=== PATIENT | female | born 1970 | race Caucasian/White ===

== ENCOUNTER 2017-01-23 08:05 | Observation (INO) ==
[2017-01-23] MEDS ORDERED: 0.9 % Sodium Chloride 1,000 ML IVC ONE (08:11)
[2017-01-23 08:32] LABS: BUN/Creatinine Ratio 6 (6-26); Blood Urea Nitrogen 4 mg/dL (7-20); Carbon Dioxide 24 mEq/L (19-29); Chloride 98 mEq/L (98-109); Glucose 160 mg/dL (70-99); Osmolality,Calculated 282 (280-300); Potassium 2.7 mEq/L (3.5-4.5); Sodium 136 mEq/L (136-145); eGFR For African Americans > 60 (> 60); eGFR For Non-African Americans > 60 (> 60)
[2017-01-23 08:35] LABS: Prothrombin Time 10.8 Seconds (9.4-12.1)
[2017-01-23 08:38] LABS: Activated Partial Thrombo Time 24.9 Seconds (26.0-36.0)
--- NOTE | 2017-01-23 08:42 | Emergency Department Note ---
Disposition Clinical Impression: Altered mental status, History of CVA (cerebrovascular accident) Disposition: Admitted As Inpatient Condition: Good Time of Disposition: 11:16 General Adult HPI - General Chief complaint: ED Neuro Symptoms/Deficit Stated complaint: Neuro Time Seen by Provider: 01/23/17 08:11 Source: patient Limitations: no limitations Nursing Notes Reviewed: Yes Vital Signs Reviewed: Yes - History of Present Illness HPI Narrative: 46-year-old female history of previous CVA 3 weeks ago complains of acute onset weakness and altered mental status for the last known well at around 0730 hrs. Patient's states patient was fine last night. Paramedics state patient seemed to be weak on the left side in upper and lower extremities and patient was unresponsive with her eyes scanning right and left paramedics state patient started to regain awareness and function after being placed on O2. Patient was alert and oriented 3 foot weak globally here in the emergency department. Pain Scale: 5 - Related Data Home Medications Medication Instructions Recorded Confirmed RisperiDONE [RisperDAL] 2 mg PO HS 12/22/14 01/23/17 Citalopram Hydrobromide [Celexa] 40 mg PO DAILY 12/08/16 01/23/17 DiphenhydraMINE [Benadryl] 50 mg PO HS 12/08/16 01/23/17 HydrOXYzine Pamoate [Vistaril] 50 - 100 mg PO BID PRN 12/08/16 01/23/17 Tizanidine HCl 4 mg PO Q8H PRN 12/08/16 01/23/17 Trazodone HCl 150 - 300 mg PO HS PRN 12/08/16 01/23/17 lamoTRIgine [Lamictal Xr] 200 mg PO DAILY 12/08/16 01/23/17 Gabapentin [Neurontin] 300 mg PO TID 12/19/16 01/23/17 Previous Rx's Medication Instructions Recorded Metoprolol XL (24 HR) Succ [Toprol 25 mg PO DAILY #30 tab.er.24h 12/09/16 Xl] Aspirin 81 mg PO DAILY #30 tab.chew 12/21/16 Clopidogrel [Plavix] 75 mg PO DAILY #30 tablet 12/21/16 Cyanocobalamin (B-12) [Vitamin B12] 1,000 mcg PO DAILY #30 tablet 12/21/16 Folic Acid 1 mg PO DAILY #30 tablet 12/21/16 Simvastatin [Zocor] 20 mg PO QPM #30 tablet 12/21/16 LevETIRAcetam [Keppra] 500 mg PO BID #60 tablet 01/24/17 Allergies Allergy/AdvReac Type Severity Reaction Status Date / Time No Known Allergies Allergy Verified 12/22/14 18:27 All systems ED: reviewed and negative except as stated. Review of Systems: As Per HPI Constitutional: Denies: fever ENT ED: Denies: congestion Cardiovascular: Denies: chest pain, palpitations Respiratory: Denies: cough, dyspnea Gastrointestinal: Denies: abdominal pain, nausea, vomiting, diarrhea Past Medical History - Past Medical History Attestation: Yes The following information was validated with the patient. 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: Reports: no MOTOR BUILDER WINDER history - Social History Smoking Status: Current every day smoker Smokeless Tobacco Status: No Alcohol use: Reports: heavy Drug use: Reports: marijuana Physical Exam Vital Signs Temperature 98.9 F 01/23/17 08:06 Pulse Rate 120 01/23/17 08:06 Respiratory Rate 18 01/23/17 08:06 Blood Pressure 147/114 01/23/17 08:06 O2 Sat by Pulse Oximetry 97 01/23/17 08:06 Temperature 98.9 F 01/23/17 08:06 Pulse Rate 120 01/23/17 08:06 Respiratory Rate 18 01/23/17 08:06 Blood Pressure 147/114 01/23/17 08:06 O2 Sat by Pulse Oximetry 97 01/23/17 08:06 Oxygen Delivery Oxygen Delivery Room Air 46-year-old female who is alert and oriented 3 but appears very fatigued and currently too weak to follow commands movements with her extremities. When asked to follow my finger patient was unable to do so but patient can look into my direction and asked to. - General Limitations: no limitations General appearance: alert, in no apparent distress - Head Head exam: atraumatic, normocephalic, normal inspection - Eye Eye exam: Present: normal appearance. Absent: PERRL, EOMI - ENT ENT exam: mucous membranes dry, other (Dry blood on lips) - Neck Neck exam: Present: normal inspection, full ROM, trachea midline - Chest Chest inspection: Present: normal inspection, symmetric chest wall rise. Absent : rash - Respiratory Respiratory exam: Present: normal lung sounds bilaterally. Absent: respiratory distress, wheezes - Cardiovascular Cardiovascular exam: Present: normal rhythm, tachycardia - Neurological Exam Neurological exam: Present: alert, oriented X3. Absent: reflexes normal (No reflexes response at L4 bilaterally lower extremities) - Skin Skin exam: Present: warm, dry, intact, normal color Course - Consultations Consultation #1: [facility] neurology Dr. Reilly was consulted and he relayed patient is not a candidate for TPA at this time given patient had CVA 3 weeks ago. Given her symptoms of global weakness and 100% occlusion of the right ICA he thinks patient most likely had a syncopal episode/possible seizure. He still recommends a full workup with MRI and MRA of the brain. He also states that they be happy to take the patient if we need to transfer. Time: 08:35 Vital Signs Temperature 98.9 F 01/23/17 08:06 Pulse Rate 120 01/23/17 08:06 Respiratory Rate 18 01/23/17 08:06 Blood Pressure 147/114 01/23/17 08:06 O2 Sat by Pulse Oximetry 97 01/23/17 08:06 Temperature 97.9 F 01/24/17 15:20 Pulse Rate 86 01/24/17 15:20 Respiratory Rate 16 01/24/17 15:20 Blood Pressure 132/91 01/24/17 15:20 O2 Sat by Pulse Oximetry 93 01/24/17 15:20 Oxygen Delivery Oxygen Delivery Room Air Medical Decision Making - [facility] Narrative Medical decision making narrative: Patient with prior history 3 weeks for CVA, patient presents alert and oriented by the time they arrived to the ED but extremely weak globally. CT of the head showed no acute cranial abnormalities are new. Discussion with [facility] neurology Dr. Reilly was that patient was not a candidate for TPA requires full workup with MRI/MRA and EEG. Discussed with Dr. Powers of neurology here who states he was seated patient but requests patient be started on 1 g of Keppra to control possible seizures since patient looks like she bit her lip and had incontinence prior to arrival. Patient is accepted by Dr. Quintana the hospitalist. On reexamination patient is doing a lot better and fully with able to sit up under her own power and has bilateral upper extremity strength which is currently 5/5 versus 2/5 when she first arrived. Patient still has bilateral weakness in lower extremities. - Medical Records Medical records reviewed: Yes I reviewed the patient's medical records. Review patient's previous imaging which showed 100% right ICA occlusion and right parietal lobe infarct - Lab Data Lab results reviewed: Yes I reviewed the patient's lab results. Lab results narrative: Short CBC 01/23/17 Range/Units 09:07 WBC 12.0 H (4.3-11.1) K/mcL Hgb 13.1 (11.5-15.4) g/dL Hct 38.4 (35.3-44.9) % Plt Count 273 (140-400) K/mcL Neutrophils # 8.9 (1.6-8.9) K/mcL BMP 01/23/17 Range/Units 08:14 Sodium 136 (136-145) mEq/L Potassium 2.7 L (3.5-4.5) mEq/L Chloride 98 (98-109) mEq/L Carbon Dioxide 24 (19-29) mEq/L BUN 4 L (7-20) mg/dL Creatinine 0.67 (0.57-1.11) mg/dL Glucose 160 H (70-99) mg/dL Calcium 10.0 (8.6-10.8) mg/dL Cardiac Enzymes 01/23/17 Range/Units 08:14 Troponin I 0.01 (0-0.03) ng/mL Liver Function 01/23/17 Range/Units 09:07 Total Bilirubin 0.6 (0.2-1.2) mg/dL Direct Bilirubin 0.4 (0.0-0.5) mg/dL AST 14 (5-34) Units/L ALT 7 (0-55) Units/L Alkaline Phosphatase 130 H (38-126) Units/L Albumin 2.6 L (3.5-5.0) g/dL Urine 01/23/17 Range/Units 08:40 Urine Color Yellow (Yellow) Urine Clarity Hazy A (Clear) Urine pH 7.5 (5.0-8.0) pH Units Ur Specific [place] 1.014 (1.010-1.025) Urine Protein 100 H (Neg-Trace) mg/dL Urine Glucose (UA) Normal (Normal) mg/dL Result diagrams: 01/24/17 06:33 01/24/17 06:33 Lab Results 01/23/17 01/23/17 01/23/17 Range/Units 08:14 08:14 08:14 WBC (4.3-11.1) K/mcL RBC (3.82-4.97) M/mcL Hgb (11.5-15.4) g/dL Hct (35.3-44.9) % MCV (83.0-100.0) fL MCH (28.0-33.3) pg MCHC (31.6-35.5) g/dL RDW (11.5-14.5) % Plt Count (140-400) K/mcL MPV (9.4-12.4) fL Immature Gran % (0-4) % Seg Neutrophils % % Lymphocytes % % Monocytes % % Eosinophils % % Basophils % % Neutrophils # (1.6-8.9) K/mcL Lymphocytes # (0.6-4.6) K/mcL Monocytes # (0.0-1.3) K/mcL Eosinophils # (0.0-0.6) K/mcL Basophils # (0.0-0.2) K/mcL Immature Plt Fraction (1.1-6.1) % PT 10.8 (9.4-12.1) Seconds INR 1.0 APTT 24.9 L (26.0-36.0) Seconds Sodium 136 (136-145) mEq/L Potassium 2.7 L (3.5-4.5) mEq/L Chloride 98 (98-109) mEq/L Carbon Dioxide 24 (19-29) mEq/L BUN 4 L (7-20) mg/dL Creatinine 0.67 (0.57-1.11) mg/dL Est GFR ( Amer) > 60 (> 60) Est GFR (Non-Af Amer) > 60 (> 60) BUN/Creatinine Ratio 6 (6-26) Glucose 160 H (70-99) mg/dL Calculated Osmolality 282 (280-300) Calcium 10.0 (8.6-10.8) mg/dL Total Bilirubin (0.2-1.2) mg/dL Direct Bilirubin (0.0-0.5) mg/dL Indirect Bilirubin (0.0-1.2) mg/dL AST (5-34) Units/L ALT (0-55) Units/L Alkaline Phosphatase (38-126) Units/L Troponin I 0.01 (0-0.03) ng/mL Serum Total Protein (6.0-8.3) g/dL Albumin (3.5-5.0) g/dL Globulin (2.4-3.5) g/dL Albumin/Globulin Ratio (1.1-2.2) Urine Color (Yellow) Urine Clarity (Clear) Urine pH (5.0-8.0) pH Units Ur Specific [place] (1.010-1.025) Urine Protein (Neg-Trace) mg/dL Urine Glucose (UA) (Normal) mg/dL Urine Ketones (Negative) mg/dL Urine Blood (Negative) Urine Nitrite (Negative) Urine Bilirubin (Negative) Urine Urobilinogen (Normal) mg/dL Ur Leukocyte Esterase (Negative) Urine Microscopic RBC (0-3) per hpf Urine Microscopic WBC (0-3) per hpf Ur Squamous Epith Cells (None-Few) per lpf Urine Bacteria (None-Few) per hpf Hyaline Casts (None-Few) per lpf Ur Culture Indicated? (NO) 01/23/17 01/23/17 01/23/17 Range/Units 08:40 09:07 09:07 WBC 12.0 H (4.3-11.1) K/mcL RBC 4.57 (3.82-4.97) M/mcL Hgb 13.1 (11.5-15.4) g/dL Hct 38.4 (35.3-44.9) % MCV 84.0 D (83.0-100.0) fL MCH 28.7 (28.0-33.3) pg MCHC 34.1 (31.6-35.5) g/dL RDW 14.5 (11.5-14.5) % Plt Count 273 (140-400) K/mcL MPV 9.4 (9.4-12.4) fL Immature Gran % 0.7 (0-4) % Seg Neutrophils % 74.0 % Lymphocytes % 17.9 % Monocytes % 7.1 % Eosinophils % 0.0 % Basophils % 0.3 % Neutrophils # 8.9 (1.6-8.9) K/mcL Lymphocytes # 2.2 (0.6-4.6) K/mcL Monocytes # 0.9 (0.0-1.3) K/mcL Eosinophils # 0.0 (0.0-0.6) K/mcL Basophils # 0.0 (0.0-0.2) K/mcL Immature Plt Fraction 2.8 (1.1-6.1) % PT (9.4-12.1) Seconds INR APTT (26.0-36.0) Seconds Sodium (136-145) mEq/L Potassium (3.5-4.5) mEq/L Chloride (98-109) mEq/L Carbon Dioxide (19-29) mEq/L BUN (7-20) mg/dL Creatinine (0.57-1.11) mg/dL Est GFR ( Amer) (> 60) Est GFR (Non-Af Amer) (> 60) BUN/Creatinine Ratio (6-26) Glucose (70-99) mg/dL Calculated Osmolality (280-300) Calcium (8.6-10.8) mg/dL Total Bilirubin 0.6 (0.2-1.2) mg/dL Direct Bilirubin 0.4 (0.0-0.5) mg/dL Indirect Bilirubin 0.2 (0.0-1.2) mg/dL AST 14 (5-34) Units/L ALT 7 (0-55) Units/L Alkaline Phosphatase 130 H (38-126) Units/L Troponin I (0-0.03) ng/mL Serum Total Protein 5.9 L (6.0-8.3) g/dL Albumin 2.6 L (3.5-5.0) g/dL Globulin 3.3 (2.4-3.5) g/dL Albumin/Globulin Ratio 0.8 L (1.1-2.2) Urine Color Yellow (Yellow) Urine Clarity Hazy A (Clear) Urine pH 7.5 (5.0-8.0) pH Units Ur Specific [place] 1.014 (1.010-1.025) Urine Protein 100 H (Neg-Trace) mg/dL Urine Glucose (UA) Normal (Normal) mg/dL Urine Ketones Negative (Negative) mg/dL Urine Blood Large H (Negative) Urine Nitrite Negative (Negative) Urine Bilirubin Negative (Negative) Urine Urobilinogen Normal (Normal) mg/dL Ur Leukocyte Esterase Moderate H (Negative) Urine Microscopic RBC TNTC H (0-3) per hpf Urine Microscopic WBC TNTC H (0-3) per hpf Ur Squamous Epith Cells Many H (None-Few) per lpf Urine Bacteria None Seen (None-Few) per hpf Hyaline Casts None Seen (None-Few) per lpf Ur Culture Indicated? YES A (NO) - Radiology Data Radiology results reviewed: Yes I reviewed the patient's radiology results. Head CT 01/23/17 08:11 IMPRESSION: No acute intracranial abnormality. Findings were discussed with Dr. Saini on 01/23/2017 at 8:31 am. D/ / Dandre Rueda MD / Dandre Rueda MD Interpreting Provider: Dandre Rueda MD Chest X-Ray 01/23/17 08:12 IMPRESSION: 1. No active pulmonary disease. D/ / Yoel Torres MD / Yoel Torres MD Interpreting Provider: Yoel Torres MD Brain MRI 01/23/17 08:37 IMPRESSION: No acute infarct. No acute intracranial hemorrhage. No significant mass effect. Unchanged mildly increased T2 signal within the right hippocampus with mild asymmetric volume loss. Loss of flow related signal within the right internal carotid artery compatible with the known chronic right ICA occlusion. Otherwise, no evidence of high-grade stenosis or focal occlusion involving the intracranial vasculature. Mild amount of nonspecific T2 hyperintense white matter lesions. D/ / 01/23/2017 10:20:21 Tee Ash MD / labmert Interpreting Provider: Tee Ash MD Head MRA 01/23/17 08:37 IMPRESSION: No acute infarct. No acute intracranial hemorrhage. No significant mass effect. Unchanged mildly increased T2 signal within the right hippocampus with mild asymmetric volume loss. Loss of flow related signal within the right internal carotid artery compatible with the known chronic right ICA occlusion. Otherwise, no evidence of high-grade stenosis or focal occlusion involving the intracranial vasculature. Mild amount of nonspecific T2 hyperintense white matter lesions. D/ / 01/23/2017 10:20:21 Tee Ash MD / lambert Interpreting Provider: Tee Ash MD - EKG Data EKG #1 EKG attestation: Yes I reviewed and interpreted this EKG. EKG results narrative: EKG taken and December 2016 and 0810 hours shows a sinus tachycardia rate of 1 20 bpm with no acute ST elevations any leads but has ST depressions in leads V3, V4, V5 and V6, which is new when compared to previous EKG taken 12/19/2016 shows a sinus rhythm at 71 beats a minute with no ST elevations or depressions EKG does show T-wave inversion in V1 through V4 Attestation Statement - Attestation Attestation: I, Jose Saha, examined this patient and my medical decision-making was reviewed with the PLATE INSPECTOR/PA/Advanced Practice Nurse/Resident Physician. I agree with the documented findings, disposition and treatment plan as described except to the extent set forth below. 46-year-old female presents emergency Department with concerns of acute weakness and altered mental status. Patient apparently had a CVA 3 weeks ago patient had acute bilateral lower extremity weakness. Patient was incontinent of urine. She is also confused upon EMS arrival. Patient gradually became more aware. No history of seizures in the past. Patient is not taking antiepileptic medications. Stroke protocol was initiated after initial evaluation secondary to patient's recent CVA and possibility of intracranial hemorrhage. CT of the head was negative for acute mass or intracranial hemorrhage. Patient gradually improved what during her stay in the emergency department. She was admitted to the hospitalist for further care and evaluation of her acute weakness and altered mental status which is possibly secondary to seizure.
[2017-01-23 08:51] LABS: Bilirubin,Urine Negative (Negative); Blood,Urine Large (Negative); Color,Urine Yellow (Yellow); Glucose,Urine (UA) Normal (Normal); Ketones,Urine Negative (Negative); Leukocyte Esterase,Urine Moderate (Negative); Nitrite,Urine Negative (Negative); PH,Urine 7.5 pH Units (5.0-8.0); Protein,Urine 100 mg/dL (Neg-Trace); Specific Gravity,Urine 1.014 (1.010-1.025); Urobilinogen,Urine Normal (Normal)
[2017-01-23 08:56] LABS: Bacteria,Urine None Seen per hpf (None-Few); Clarity,Urine Hazy (Clear); Hyaline Casts,Urine None Seen per lpf (None-Few); RBC,Urine TNTC per hpf (0-3); Squamous Epithelial Cell,Urine Many per lpf (None-Few); WBC,Urine TNTC per hpf (0-3)
[2017-01-23 09:15] LABS: Basophils % 0.3 %; Hematocrit 38.4 % (35.3-44.9); Hemoglobin 13.1 g/dL (11.5-15.4); Immature Granulocytes % 0.7 % (0-4); Immature Platelets 2.8 % (1.1-6.1); Lymphocytes # 2.2 K/mcL (0.6-4.6); Lymphocytes % 17.9 %; Mean Corpuscular HGB Conc 34.1 g/dL (31.6-35.5); Mean Corpuscular Hemoglobin 28.7 pg (28.0-33.3); Mean Platelet Volume 9.4 fL (9.4-12.4); Monocytes # 0.9 K/mcL (0.0-1.3); Monocytes % 7.1 %; Neutrophils # 8.9 K/mcL (1.6-8.9); Platelet Count 273 K/mcL (140-400); Red Blood Count 4.57 M/mcL (3.82-4.97); Red Cell Distribution Width 14.5 % (11.5-14.5)
[2017-01-23 09:29] LABS: Albumin 2.6 g/dL (3.5-5.0); Albumin/Globulin Ratio 0.8 (1.1-2.2); Bilirubin,Direct 0.4 mg/dL (0.0-0.5); Bilirubin,Indirect 0.2 mg/dL (0.0-1.2); Bilirubin,Total 0.6 mg/dL (0.2-1.2); Globulin 3.3 g/dL (2.4-3.5); Total Protein 5.9 g/dL (6.0-8.3)
[2017-01-23] MEDS ORDERED: cefTRIAXone 1,000 MG in Water for inj. (sterile) 10 ML IVP ONE (10:23)
[2017-01-23] MEDS ORDERED: Potassium Chloride Elixir 20 MEQ/15 ML UDC PO ONE (12:07)
[2017-01-23] MEDS ORDERED: *HR* Morphine 2 MG/ML SYRINGE IVP PRN (14:55)
[2017-01-23] MEDS ORDERED: Acetaminophen 325 MG TABLET PO PRN (14:55)
[2017-01-23] MEDS ORDERED: Naloxone 0.4 MG/ML INJ IVP PRN (14:55)
[2017-01-23] MEDS ORDERED: Ondansetron 4 MG/2 ML VIAL IVP PRN (14:55)
[2017-01-23] MEDS ORDERED: *HR* HYDROcodone/Acet 5/325 mg TABLET PO PRN (14:55)
[2017-01-23] MEDS ORDERED: tiZANidine 4 MG TABLET PO PRN (15:02)
--- NOTE | 2017-01-23 15:39 | Internal Med History&Physical ---
Date of Encounter: 01/23/17 Time of Encounter: 15:35 Assessment and Plan (1) Altered mental status Current visit: Yes Status: Acute will place the pt into Tele for observation her current AMS seems to be more like due to Seizure however little concerned about TIA too will place her on desk monitor check serial troponin check frequent neuro checks cont ASA and Plavix Cont statin Reviewed her Brain MRI / MRA - no acute infarctions now Neuro consulted will get EEG in AM seizure precautions PT / OT eval Reviewed UA - no bacteria seen..No signs of UTI Qualifiers: Altered mental status type: delirium Qualified Code(s): R41.0 - Disorientation, unspecified (2) Seizure Current visit: Yes Status: Acute see above (3) TIA (transient ischemic attack) Current visit: Yes Status: Acute Qualifiers: Qualified Code(s): G45.9 - Transient cerebral ischemic attack, unspecified (4) Depression Current visit: No Status: Chronic resumed home psych meds - Lamictal and Risperidone Qualifiers: Depression Type: unspecified Qualified Code(s): F32.9 - Major depressive disorder, single episode, unspecified (5) Gastric ulcer Current visit: No Status: Chronic resumed PPI Qualifiers: Gastric ulcer chronicity: chronic Gastric ulcer complication status: unspecified whether hemorrhage or perforation present Qualified Code(s): K25.7 - Chronic gastric ulcer without hemorrhage or perforation (6) Multiple falls Current visit: No Status: Acute Physical deconditioning PT / OT eval (7) History of CVA (cerebrovascular accident) Current visit: Yes Status: Acute resumed home med ASA. Plavix and Statin (8) Bipolar 1 disorder, depressed Current visit: Yes Status: Acute following with angelica as an out pt (9) Hypokalemia due to inadequate potassium intake Current visit: Yes Status: Acute (10) Hypertensive urgency Current visit: Yes Status: Acute BP fairly controlled did not take her PO meds today,, will resume her pO meds first placed her on Hydralazine IV PRN (11) Hypokalemia Current visit: No Status: Acute cont replacing Internal Medicine - H&P: HPI Chief complaint: Seizure / unresponsiveness Admitted From: Emergency Dept Plans for Post Hospital Care: Home History of present illness: Ms. Simmons is a 46 year old female with medical history of chronic liver disease, HTN, gastric bypass, gastric ulcer, Bipolar currently on Lamictal and Risperdol and recent Rt parietal to Temporal small infractions consistent with Rt ICA 100 % occlusion was brought into ER by family stating that this morning she was found slightly unresponsive, blank face, bitten lips, making some noise , confused and disoriented. The whole episode lasted for 10-15 minutes. As per she had an episode of brief sparing spell last night which lasted for a minute or two last night. Now she is alert, awake and O x 3. Denied any CP . No acute localized neurological deficits. Past Med Surg Social Fam HX - Past Medical History Medical history: liver disease, other Psychiatric history: anxiety, bipolar, depression, other - Past Surgical History Surgical History: - Social History Smoking Status: Current every day smoker Smokeless Tobacco Status: No Alcohol use: heavy Drug use: marijuana - Family History Grandmother Family Member Ethnicity: Non- Living Status: Hx Family Cardiac Disorders: Yes (Stroke) Hx Family Neuromuscular Disorders: Yes (CVA) Father Family Member Ethnicity: Non- Living Status: Still Living Mother Family Member Ethnicity: Non- Living Status: Still Living Hx Family Cardiac Disorders: Yes (CO x 2, DVTs) Hx Family Respiratory Disorders: Yes (COPD, emphysema) Internal Medicine - H&P: Meds RisperiDONE [RisperDAL] 2 mg PO HS 12/22/14 [History] Citalopram Hydrobromide [Celexa] 40 mg PO DAILY 12/08/16 [History] DiphenhydraMINE [Benadryl] 50 mg PO HS 12/08/16 [History] HydrOXYzine Pamoate [Vistaril] 50 - 100 mg PO BID PRN 12/08/16 [History] Tizanidine HCl 4 mg PO Q8H PRN 12/08/16 [History] Trazodone HCl 150 - 300 mg PO HS PRN 12/08/16 [History] lamoTRIgine [Lamictal Xr] 200 mg PO DAILY 12/08/16 [History] Metoprolol XL (24 HR) Succ [Toprol Xl] 25 mg PO DAILY #30 tab.er.24h 12/09/16 [ Rx] Gabapentin [Neurontin] 300 mg PO TID 12/19/16 [History] Aspirin 81 mg PO DAILY #30 tab.chew 12/21/16 [Rx] Clopidogrel [Plavix] 75 mg PO DAILY #30 tablet 12/21/16 [Rx] Cyanocobalamin (B-12) [Vitamin B12] 1,000 mcg PO DAILY #30 tablet 12/21/16 [Rx] Folic Acid 1 mg PO DAILY #30 tablet 12/21/16 [Rx] Simvastatin [Zocor] 20 mg PO QPM #30 tablet 12/21/16 [Rx] 3 Allergy/AdvReac Type Severity Reaction Status Date / Time No Known Allergies Allergy Verified 12/22/14 18:27 All Systems PM: A 10-system review of systems was performed and is negative for pertinent findings except as documented above in the HPI. Review of systems: All the systems are reviewed everything is benign except the systems and symptoms I mentioned in the history of present illness - Constitutional Vitals: Temp Pulse Resp BP Pulse Ox 98.9 F 98 16 114/91 95 01/23/17 08:06 01/23/17 13:58 01/23/17 13:58 01/23/17 13:58 01/23/17 13:58 General appearance: Present: A&O X 3, no acute distress, answers questions appropriately - Head Head exam: Present: atraumatic, normal inspection - ENT Additional comments: few bite thomason over lower lip - Neck Neck exam general surgery: Present: supple - Respiratory Respiratory exam: Present: decreased breath sounds. Absent: rales, respiratory distress, rhonchi, wheezes - Cardiovascular Cardiovascular exam: Present: RRR, +S1, +S2. Absent: systolic murmur - GI/Abdominal GI/Abdominal exam: Present: normal bowel sounds, soft. Absent: rebound, rigid, tenderness - Extremities Exam Extremities exam: Absent: calf tenderness, pedal edema, tenderness - Back Exam Back exam: Absent: CVA tenderness (L), CVA tenderness (R) - Neurological Exam Neurological exam: Present: alert, CN II-XII intact, oriented X3, reflexes normal, no focal deficits, strengths equal and symetr throughout. Absent: facial droop, speech deficit - Psychiatric Psychiatric exam: Present: flat affect - Skin Skin exam: Absent: rash Internal Med - H&P Results - Labs CBC & Chem 7: 01/23/17 09:07 01/23/17 08:14
--- NOTE | 2017-01-23 16:45 | Neurology - Consult Note ---
Date of Encounter: 01/23/17 Time of Encounter: 16:42 Assessment and Plan (1) Seizure Current Visit: Yes Status: Acute I am highly suspicious that this transient episode of altered mental status she is now completely resolved is likely due to seizure activity. Suspect that the right hippocampus is now acting is any agreeable focus and generating epileptiform activity. We will load her with Keppra in the ED and 90s grade maintaining her on 500 mg twice a day for now. Like to observe her overnight and get an EEG in the morning. She was here about 3 weeks ago with an initial episode of infarct. She had CTA of the brain then and also had lumbar puncture. I do not feel that is necessary to repeat these tests at this time. I will reevaluate her in the morning. History of Present Illness HPI: Ms. Simmons is a 46 year old female who is seen for neurological consultation secondary to acute altered mental status which is since resolved. She is initially seen. [facility] about 3 weeks or so ago secondary to an acute right hemispheric infarct. It was discovered that she has a completely occluded right internal carotid artery. She is a cigarette smoker with hyperlipidemia but otherwise has accelerated atherosclerotic disease. She has hypertension as well. Yesterday she experienced an episode where she became acutely confused apparently tensed up. This lasted for about a minute or so. This morning her witnessed a similar episode and apparently she let out a loud yell so grunting sounds. She did not have tonic- clonic activity but she did seem to have a tonic phase. She did lose urinary continence. MRI scan of the brain today reveals evidence of the old area of infarct in the right hippocampus. Otherwise nothing was identified on MRI scanning. I did discuss this case with the ED resident decided that we should load her with Keppra. She is also already on Lamictal she takes 200 mg SR once a day for bipolar disorder. Past Med Surg Social Fam HX - Past Medical History Medical history: liver disease, other Psychiatric history: anxiety, bipolar, depression, other - Past Surgical History Surgical History: - Social History Smoking Status: Current every day smoker Smokeless Tobacco Status: No Alcohol use: heavy Drug use: marijuana - Family History Grandmother Family Member Ethnicity: Non- Living Status: Hx Family Cardiac Disorders: Yes (Stroke) Hx Family Neuromuscular Disorders: Yes (CVA) Father Family Member Ethnicity: Non- Living Status: Still Living Mother Family Member Ethnicity: Non- Living Status: Still Living Hx Family Cardiac Disorders: Yes (OR x 2, DVTs) Hx Family Respiratory Disorders: Yes (COPD, emphysema) Medications and Allergies RisperiDONE [RisperDAL] 2 mg PO HS 12/22/14 [History] Citalopram Hydrobromide [Celexa] 40 mg PO DAILY 12/08/16 [History] DiphenhydraMINE [Benadryl] 50 mg PO HS 12/08/16 [History] HydrOXYzine Pamoate [Vistaril] 50 - 100 mg PO BID PRN 12/08/16 [History] Tizanidine HCl 4 mg PO Q8H PRN 12/08/16 [History] Trazodone HCl 150 - 300 mg PO HS PRN 12/08/16 [History] lamoTRIgine [Lamictal Xr] 200 mg PO DAILY 12/08/16 [History] Metoprolol XL (24 HR) Succ [Toprol Xl] 25 mg PO DAILY #30 tab.er.24h 12/09/16 [ Rx] Gabapentin [Neurontin] 300 mg PO TID 12/19/16 [History] Aspirin 81 mg PO DAILY #30 tab.chew 12/21/16 [Rx] Clopidogrel [Plavix] 75 mg PO DAILY #30 tablet 12/21/16 [Rx] Cyanocobalamin (B-12) [Vitamin B12] 1,000 mcg PO DAILY #30 tablet 12/21/16 [Rx] Folic Acid 1 mg PO DAILY #30 tablet 12/21/16 [Rx] Simvastatin [Zocor] 20 mg PO QPM #30 tablet 12/21/16 [Rx] 3 Allergy/AdvReac Type Severity Reaction Status Date / Time No Known Allergies Allergy Verified 12/22/14 18:27 All Systems: A 10-system review of systems was performed and is negative for pertinent findings except as documented above in the HPI. Review of Systems: Review of systems is consistent with a history of present illness and otherwise negative. 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, hip flexors, tibialis Anterior, quadriceps, toe extension (EHL), plantarflexion Motor examination - left side: 4/5: deltoids, biceps, triceps, wrist flexion, wrist extension, hip flexors, cocoa butter filter operator, quadriceps, tibialis Anterior, toe extension (EHL), plantarflexion Detailed sensory examination: intact Reflex and gait examination: other (Deep tendon reflexes of the upper extremities are 2 symmetrically diminished at the patellar and Achilles symmetrically.) Mental Status Examination: awake, alert, oriented to person, oriented to place, oriented to time, follows commands appropriately, answers questions appropriately, no agnosia, no aphasia, no aproxia Cranial nerve examination: PERRL, EOMI, visual mchugh intact, corneal reflexes brisk symmetrically, sensory to face intact, mastication intact, no facial asymmetry is present, no dysarthria, hearing is intact symmetrically, soft palate elevates bilaterally upon phonation, gag reflex intact, flexes SCM and trapezius muscles symmetrically with full power, tongue protrudes midline, no atrophy or facial fasiculations present Cerebellar examination: no dysmetria, performs finger to nose and heel to reyes symmetrically without ataxia, no gait ataxia, no truncal ataxia, no difficulty with rapid alternating movements Results - Laboratory Findings CBC and BMP: 01/23/17 09:07 01/23/17 08:14 Abnormal lab findings: Abnormal lab results WBC 12.0 K/mcL (4.3-11.1) H 01/23/17 09:07 APTT 24.9 Seconds (26.0-36.0) L 01/23/17 08:14 Potassium 2.7 mEq/L (3.5-4.5) L 01/23/17 08:14 BUN 4 mg/dL (7-20) L 01/23/17 08:14 Glucose 160 mg/dL (70-99) H 01/23/17 08:14 Alkaline Phosphatase 130 Units/L (38-126) H 01/23/17 09:07 Serum Total Protein 5.9 g/dL (6.0-8.3) L 01/23/17 09:07 Albumin 2.6 g/dL (3.5-5.0) L 01/23/17 09:07 Albumin/Globulin Ratio 0.8 (1.1-2.2) L 01/23/17 09:07 Urine Clarity Hazy (Clear) A 01/23/17 08:40 Urine Protein 100 mg/dL (Neg-Trace) H 01/23/17 08:40 Urine Blood Large (Negative) H 01/23/17 08:40 Ur Leukocyte Esterase Moderate (Negative) H 01/23/17 08:40 Urine Microscopic RBC TNTC per hpf (0-3) H 01/23/17 08:40 Urine Microscopic WBC TNTC per hpf (0-3) H 01/23/17 08:40 Ur Squamous Epith Cells Many per lpf (None-Few) H 01/23/17 08:40 Ur Culture Indicated? YES (NO) A 01/23/17 08:40 Consult Discharge Plan - Plan Referrals: Duong Tejada MD [Primary Care Provider] -
[2017-01-23] MEDS: Aspirin 81 MG TAB.CHEW PO SCH (19:53)
[2017-01-23] MEDS: levETIRAcetam 250 MG TABLET PO SCH (19:53)
[2017-01-23] MEDS ORDERED: risperiDONE 1 MG TABLET PO SCH (21:00)
[2017-01-23] MEDS: Gabapentin 300 MG CAPSULE PO SCH (21:43)
[2017-01-24] MEDS: levETIRAcetam 250 MG TABLET PO SCH (05:00)
[2017-01-24 07:27] LABS: Basophils # 0.1 K/mcL (0.0-0.2); Basophils % 0.5 %; Eosinophils % 0.1 %; Hematocrit 34.7 % (35.3-44.9); Immature Granulocytes % 0.6 % (0-4); Lymphocytes # 3.5 K/mcL (0.6-4.6); Lymphocytes % 29.5 %; Mean Corpuscular HGB Conc 32.9 g/dL (31.6-35.5); Mean Corpuscular Hemoglobin 28.6 pg (28.0-33.3); Mean Platelet Volume 9.7 fL (9.4-12.4); Monocytes # 0.9 K/mcL (0.0-1.3); Monocytes % 7.3 %; Neutrophils # 7.3 K/mcL (1.6-8.9); Platelet Count 226 K/mcL (140-400); Red Blood Count 3.99 M/mcL (3.82-4.97)
[2017-01-24 07:44] LABS: Alanine Aminotransferase 9 Units/L (0-55); Albumin 2.3 g/dL (3.5-5.0); Albumin/Globulin Ratio 0.7 (1.1-2.2); Alkaline Phosphatase 89 Units/L (38-126); Aspartate Amino Transferase 17 Units/L (5-34); BUN/Creatinine Ratio 11 (6-26); Bilirubin,Total 0.5 mg/dL (0.2-1.2); Blood Urea Nitrogen 7 mg/dL (7-20); Calcium 8.6 mg/dL (8.6-10.8); Carbon Dioxide 26 mEq/L (19-29); Chloride 106 mEq/L (98-109); Chol/HDL Ratio 2.4 (0-4.9); Cholesterol 110 mg/dL (< 200); Globulin 3.1 g/dL (2.4-3.5); Glucose 79 mg/dL (70-99); HDL Cholesterol 45 mg/dL (40-59); LDL Cholesterol,Calculated 27 mg/dL (0-99); Magnesium 1.6 mg/dL (1.6-2.6); Osmolality,Calculated 287 (280-300); Phosphorous 2.6 mg/dL (2.3-4.7); Sodium 140 mEq/L (136-145); Total Protein 5.4 g/dL (6.0-8.3); Triglycerides 192 mg/dL (< 150); eGFR For African Americans > 60 (> 60); eGFR For Non-African Americans > 60 (> 60)
[2017-01-24 07:48] LABS: Hemoglobin 11.4 g/dL (11.5-15.4)
[2017-01-24] MEDS: Aspirin 81 MG TAB.CHEW PO SCH (07:59)
[2017-01-24] MEDS: Gabapentin 300 MG CAPSULE PO SCH ×2 (08:00→15:25)
[2017-01-24 08:33] LABS: Potassium 3.3 mEq/L (3.5-4.5)
[2017-01-24] MEDS ORDERED: Folic Acid 1 MG TABLET PO SCH (09:00)
[2017-01-24] MEDS ORDERED: Metoprolol XL (24 HR) Succ 25 MG TAB.ER.24H PO SCH (09:00)
[2017-01-24] MEDS ORDERED: lamoTRIgine 100 MG TABLET PO SCH (09:00)
[2017-01-24] MEDS ORDERED: Cyanocobalamin (B-12) 1,000 MCG TABLET PO SCH (09:00)
[2017-01-24 15:23] VITALS: BP 132/91
--- NOTE | 2017-01-24 15:23 | EEG/EMG/Oth Biometrics Report ---
EEG Procedure Report Date of procedure: 01/24/17 EEG Procedure: Routine EEG Procedure Note: This is a report from 21 channel bipolar and referential montage EEG. Posterior dominant rhythm of 9-10 Hz moderate voltage alpha frequencies identified symmetrically in the posterior head regions. This rhythm attenuates symmetrically with eye opening. Hyperventilation is not performed in the recording. Periods of drowsiness identified as referenced by dropout of the posterior dominant rhythm over the subject does not approach stage II sleep. Photic stimulation is performed and does not produce a driving response. EKG rhythm strip reveals normal sinus rhythm at 96 bpm. Impressions this EEG recording is within normal limits. There is no evidence of epileptiform activity identified during the study. Comment: A normal EEG does not preclude a diagnosis of seizure or epilepsy. If the clinical suspicion for seizure activity is high, serial EEGs or perhaps a prolonged recording may increase the yield. Please correlate clinically.
[2017-01-24] MEDS ORDERED: cefTRIAXone 1,000 MG in Water for inj. (sterile) 10 ML IVP SCH (16:00)
--- NOTE | 2017-01-24 16:14 | Discharge Summary ---
Date of Encounter: 01/24/17 Time of Encounter: 16:10 - Discharge Diagnosis (1) Altered mental status Priority: Primary Status: Resolved Qualifiers: Altered mental status type: delirium Qualified Code(s): R41.0 - Disorientation, unspecified (2) Seizure Priority: Primary Status: Suspected (3) TIA (transient ischemic attack) Priority: Primary Status: Ruled-out Qualifiers: Qualified Code(s): G45.9 - Transient cerebral ischemic attack, unspecified (4) Depression Priority: Secondary Status: Chronic Qualifiers: Depression Type: unspecified Qualified Code(s): F32.9 - Major depressive disorder, single episode, unspecified (5) Gastric ulcer Priority: Secondary Status: Chronic Qualifiers: Gastric ulcer chronicity: chronic Gastric ulcer complication status: unspecified whether hemorrhage or perforation present Qualified Code(s): K25.7 - Chronic gastric ulcer without hemorrhage or perforation (6) Multiple falls Priority: Secondary Status: Acute (7) History of CVA (cerebrovascular accident) Priority: Secondary Status: Acute (8) Bipolar 1 disorder, depressed Priority: Secondary Status: Acute (9) Hypokalemia due to inadequate potassium intake Priority: Secondary Status: Acute (10) Hypertensive urgency Priority: Secondary Status: Acute (11) Hypokalemia Priority: Secondary Status: Acute - Discharge Medications Prescriptions: LevETIRAcetam [Keppra] 500 mg PO BID #60 tablet Home Medications: RisperiDONE [RisperDAL] 2 mg PO HS 12/22/14 [History] Citalopram Hydrobromide [Celexa] 40 mg PO DAILY 12/08/16 [History] DiphenhydraMINE [Benadryl] 50 mg PO HS 12/08/16 [History] HydrOXYzine Pamoate [Vistaril] 50 - 100 mg PO BID PRN 12/08/16 [History] Tizanidine HCl 4 mg PO Q8H PRN 12/08/16 [History] Trazodone HCl 150 - 300 mg PO HS PRN 12/08/16 [History] lamoTRIgine [Lamictal Xr] 200 mg PO DAILY 12/08/16 [History] Metoprolol XL (24 HR) Succ [Toprol Xl] 25 mg PO DAILY #30 tab.er.24h 12/09/16 [ Rx] Gabapentin [Neurontin] 300 mg PO TID 12/19/16 [History] Aspirin 81 mg PO DAILY #30 tab.chew 12/21/16 [Rx] Clopidogrel [Plavix] 75 mg PO DAILY #30 tablet 12/21/16 [Rx] Cyanocobalamin (B-12) [Vitamin B12] 1,000 mcg PO DAILY #30 tablet 12/21/16 [Rx] Folic Acid 1 mg PO DAILY #30 tablet 12/21/16 [Rx] Simvastatin [Zocor] 20 mg PO QPM #30 tablet 12/21/16 [Rx] LevETIRAcetam [Keppra] 500 mg PO BID #60 tablet 01/24/17 [Rx] Allergies/Adverse Reactions: 3 Allergy/AdvReac Type Severity Reaction Status Date / Time No Known Allergies Allergy Verified 12/22/14 18:27 Procedures/tests Complete & Pending: Procedures Performed prior 72 hours Category Date Time Status ECG 12 lead ECG [ECG] Routine Y 01/23/17 08:10 Completed Date of admission: 01/23/17 10:11 Primary care physician: Duong Tejada MD Consults: 01/23/17 11:10 Consult to Neurology [CONS] Stat Consulting Provider: Neurology [facility] Reason for Consult: CVA/ Seizure, syncope/ AMS Time Notified: 11:10 Call Completed: Yes 01/23/17 15:49 Consult to Physical Therapy [CONS] Routine Comment: Evaluate, develop and implement POC Reason for Consult: deconditioning OT [Consult to Occupational Therapy] [CONS] Routine Comment: Evaluate, develop and implement POC Reason for Consult: Seizure vs TIA 01/24/17 12:46 Consult to Interpret Exam [CONS] Routine Consulting Provider: Jose Raul Powers Consult to Interpret Exam: Interpret EEG - Patient Status Disposition: Home, Self-Care Condition: Good Overall status at discharge: patient is back to baseline - Discharge Instructions Follow Up With: Duong Tejada MD [Primary Care Provider] - Lamont Braga MD [Partnered Physician] - Additional Instructions: f/u with PCP in one 1 week f/u with Neurologist in 1-2 weeks - Diet and Activity Activity: increase activity as tolerated Diet: low salt diet Hospital course: Ms. Simmons is a 46 year old female with medical history of chronic liver disease, HTN, gastric bypass, gastric ulcer, Bipolar currently on Lamictal and Risperdol and recent Rt parietal to Temporal small infractions consistent with Rt ICA 100 % occlusion was brought into ER by family stating that this morning she was found slightly unresponsive, blank face, bitten lips, making some noise , confused and disoriented. The whole episode lasted for 10-15 minutes. As per she had an episode of brief sparing spell last night which lasted for a minute or two. Pt was admitted in the hospital and placed her on biomedical instrument technician. Checked serial troponin which were negative x 3. Her symptoms were consistent with Seizure. Pt's MRI of Brain showed old infarction @ Rt hippocampus, otherwise no acute changes. She was seen by neurologist and recommend to start her on Keppra since her symptoms are more consistent with Seizure activity. her EEG came back as normal, however due to her typical presentation we decided to continue Keppra 500mg PO BID, and f/u with her regular neurologist Dr. Braga as an out pt. - Time Spent with Patient Total time spent providing and/or coordinating discharge services: - Constitutional Vitals: Temp Pulse Resp BP Pulse Ox 97.9 F 86 16 132/91 93 01/24/17 15:20 01/24/17 15:20 01/24/17 15:20 01/24/17 15:20 01/24/17 15:20 General appearance: Present: A&O X 3, no acute distress, answers questions appropriately - Head Head exam: Present: atraumatic, normal inspection - Neck Neck exam general surgery: Present: supple - Respiratory Respiratory exam: Present: CTAB. Absent: decreased breath sounds, rales, respiratory distress, rhonchi, wheezes - Cardiovascular Cardiovascular exam: Present: RRR, +S1, +S2. Absent: systolic murmur - GI/Abdominal GI/Abdominal exam: Present: normal bowel sounds, soft. Absent: rebound, rigid, tenderness - Extremities Exam Extremities exam: Absent: calf tenderness, pedal edema, tenderness - Back Exam Back exam: Absent: CVA tenderness (L), CVA tenderness (R) - Neurological Exam Neurological exam: Present: alert, CN II-XII intact, oriented X3, strengths equal and symetr throughout. Absent: facial droop, speech deficit - Psychiatric Psychiatric exam: Present: normal affect, normal mood
--- NOTE | 2017-01-24 19:36 | Electrocardiograph Report ---
[address] [place], [place] [address] Test Date: 2017-01-23 [id number] Room: 3A14 Gender: F Patient Escort: ELY : 1970 Requested By: Olivia Cesar Order Number: [id number] Reading MD: Valentine Galeano Measurements Intervals [place] Rate: 120 P: 74 [place]: 141 QRS: 9 QRSD: 85 T: 42 QT: 339 QTc: 410 Interpretive Statements SINUS TACHYCARDIA NONSPECIFIC ST & T-WAVE ABNORMALITY ABNORMAL RHYTHM ECG Electronically Signed On 01-24-2017 19:34:57 EST by Valentine Galeano
== END 2017-01-24 16:58 | disposition home or self-care (01) ==
LOC: 3ANU 08:05 → EMEROO 08:05 → 3ANU 17:31
PROVIDERS: ADMIT Family Medicine; ATTEND Family Medicine

== ENCOUNTER 2017-03-14 18:27 | Inpatient (IN) ==
[2017-03-14] MEDS ORDERED: 0.9 % Sodium Chloride 1,000 ML IVC ONE (18:39)
--- NOTE | 2017-03-14 18:42 | Emergency Department Note ---
Disposition Clinical Impression: Ischemic stroke of frontal lobe, Parietal lobe infarction Disposition: Admitted As Inpatient Condition: Serious Referrals: Duong Tejada MD [Primary Care Provider] - Forms: ED Satisfaction Letter Time of Disposition: 21:47 Neuro HPI - General Chief Complaint: ED Neuro Symptoms/Deficit Stated Complaint: left sided weakness Time Seen by Provider: 03/14/17 18:34 Source: EMS Nursing Notes Reviewed: Yes Vital Signs Reviewed: Yes - History of Present Illness HPI Narrative: 47-year-old female complains of left-sided weakness 2 nights ago. Patient has a history of stroke just over 2 weeks prior with right-sided weakness. Patient states that she did not come in for evaluation because she thought her symptoms would resolve. Patient complains of complete weakness in left upper and left lower extremity - Related Data Home Medications: Home Medications Medication Instructions Recorded Confirmed RisperiDONE [RisperDAL] 2 mg PO HS 12/22/14 03/14/17 Citalopram Hydrobromide [Celexa] 40 mg PO DAILY 12/08/16 03/14/17 DiphenhydraMINE [Benadryl] 50 mg PO HS 12/08/16 03/14/17 HydrOXYzine Pamoate [Vistaril] 50 mg PO TID PRN 12/08/16 03/14/17 Tizanidine HCl 4 mg PO Q8H PRN 12/08/16 03/14/17 Trazodone HCl 150 - 300 mg PO HS PRN 12/08/16 03/14/17 lamoTRIgine [Lamictal Xr] 200 mg PO DAILY 12/08/16 03/14/17 Gabapentin [Neurontin] 300 mg PO TID 12/19/16 03/14/17 Previous Rx's Medication Instructions Recorded Metoprolol XL (24 HR) Succ [Toprol 25 mg PO DAILY #30 tab.er.24h 12/09/16 Xl] Aspirin 81 mg PO DAILY #30 tab.chew 12/21/16 Clopidogrel [Plavix] 75 mg PO DAILY #30 tablet 12/21/16 Cyanocobalamin (B-12) [Vitamin B12] 1,000 mcg PO DAILY #30 tablet 12/21/16 Folic Acid 1 mg PO DAILY #30 tablet 12/21/16 Simvastatin [Zocor] 20 mg PO QPM #30 tablet 12/21/16 LevETIRAcetam [Keppra] 500 mg PO BID #60 tablet 01/24/17 Allergies/Adverse Reactions: Allergies Allergy/AdvReac Type Severity Reaction Status Date / Time No Known Allergies Allergy Verified 12/22/14 18:27 All systems ED: reviewed and negative except as stated. Review of Systems: As Per HPI Constitutional: Reports: weakness. Denies: fever Eyes: Denies: vision change ENT ED: Denies: congestion, dysphagia Cardiovascular: Denies: chest pain, palpitations Respiratory: Denies: cough, dyspnea, wheezes Gastrointestinal: Denies: abdominal pain, nausea, vomiting, diarrhea Genitourinary: Denies: urgency, dysuria, frequency Musculoskeletal: Denies: back pain Neurological: Reports: weakness, paresthesias. Denies: headache Past Medical History - Past Medical History Attestation: Yes The following information was validated with the patient. Source: patient, nursing notes reviewed Medical history: Reports: liver disease, other Surgical history: Reports: Psychiatric history: Reports: anxiety, bipolar, depression, other COMPUTER SECURITY SPECIALIST history: Reports: no COMPUTER SECURITY SPECIALIST history - Social History Smoking Status: Current every day smoker Smokeless Tobacco Status: No Alcohol use: Reports: heavy Drug use: Reports: marijuana Physical Exam Vital Signs Temperature 98.1 F 03/14/17 18:30 Pulse Rate 80 03/14/17 18:30 Respiratory Rate 16 03/14/17 18:30 Blood Pressure 133/101 03/14/17 18:30 O2 Sat by Pulse Oximetry 96 03/14/17 18:30 Temperature 98.1 F 03/14/17 18:30 Pulse Rate 80 03/14/17 18:30 Respiratory Rate 16 03/14/17 18:30 Blood Pressure 133/101 03/14/17 18:30 O2 Sat by Pulse Oximetry 96 03/14/17 18:30 Oxygen Delivery Oxygen Delivery Room Air We 7-year-old female who is alert and oriented 3 and in no acute distress. Patient has no visual facial drooping or slurring his speech. Patient has complete inability to lift her left upper extremity and left lower extremity any direction. Patient has a slight grasp strength that is 1/5 compared to the right side which is 4/5. Diminished reflexes bilateral lower extremities. Patient is decreased sensation to palpation left lower arm and hand and left lower extremity below the knee. Patient is hypertensive at 133/101. Patient is afebrile - General General appearance: alert, in no apparent distress - Head Head exam: atraumatic, normocephalic, normal inspection - Eye Eye exam: Present: normal appearance, PERRL, EOMI - ENT ENT exam: normal exam, normal oropharynx, mucous membranes moist - Neck Neck exam: Present: normal inspection, full ROM, trachea midline - Chest Chest inspection: Present: normal inspection, symmetric chest wall rise - Respiratory Respiratory exam: Present: normal lung sounds bilaterally - Cardiovascular Cardiovascular exam: Present: regular rate, normal rhythm, normal heart sounds - Abdominal Exam Abdominal exam: Present: soft, Non-Tender. Absent: tenderness, distention, guarding, rebound, rigidity Course Vital Signs Temperature 98.1 F 03/14/17 18:30 Pulse Rate 80 03/14/17 18:30 Respiratory Rate 16 03/14/17 18:30 Blood Pressure 133/101 03/14/17 18:30 O2 Sat by Pulse Oximetry 96 03/14/17 18:30 Temperature 98.1 F 03/14/17 18:30 Pulse Rate 82 03/14/17 20:39 Respiratory Rate 18 03/14/17 20:39 Blood Pressure 123/64 03/14/17 20:39 O2 Sat by Pulse Oximetry 97 03/14/17 20:39 Oxygen Delivery Oxygen Delivery Room Air Neuro Symptoms/Deficit - MDM Narrative Medical decision making narrative: CVA/stroke. Patient is out of window for interventions since symptoms started greater than 24 hours ago without any improvement. Patient started on aspirin for new stroke given CT results:right frontal and probably parietal lobes. Patient has a NIH stroke score of [address] Braga of neurology: He states continue patient on her home medications of Plavix, aspirin and atorvastatin. Admit to medicine and he will see patient in the morning. On reevaluation patient still has left-sided weakness Patient took her daily medications of Plavix atorvastatin this morning and will not need her meds until tomorrow morning. Patient's labs show hypo-kalemia at 2.8 and has been ordered oral potassium replacement therapy as well as 2 g mag sulfate for QT prolongation Patient was accepted for admission by Dr. Dewey the hospitalist. - Lab Data Lab results reviewed: Yes I reviewed the patient's lab results. Lab results narrative: Short CBC 03/14/17 Range/Units 18:37 WBC 9.8 (4.3-11.1) K/mcL Hgb 12.2 (11.5-15.4) g/dL Hct 37.6 (35.3-44.9) % Plt Count 267 (140-400) K/mcL Neutrophils # 6.0 (1.6-8.9) K/mcL BMP 03/14/17 Range/Units 18:37 Sodium 139 (136-145) mEq/L Potassium 2.8 L (3.5-5.1) mEq/L Chloride 98 (98-107) mEq/L Carbon Dioxide 34 H (23-29) mEq/L BUN 8 (6-20) mg/dL Creatinine 0.55 L (0.60-1.20) mg/dL Glucose 86 (70-105) mg/dL Calcium 8.3 L (8.6-10.3) mg/dL Cardiac Enzymes 03/14/17 Range/Units 18:37 Troponin I < 0.03 (< 0.04) ng/mL Urine 03/14/17 Range/Units 19:34 Urine Color Yellow (Yellow) Urine Clarity Cloudy A (Clear) Urine pH 6.5 (5.0-8.0) pH Units Ur Specific [place] 1.012 (1.010-1.025) Urine Protein Negative (Neg-Trace) mg/dL Urine Glucose (UA) Normal (Normal) mg/dL Result diagrams: 03/14/17 18:37 03/14/17 18:37 Lab Results 03/14/17 03/14/17 03/14/17 Range/Units 18:37 18:37 18:37 WBC 9.8 (4.3-11.1) K/mcL RBC 4.32 (3.82-4.97) M/mcL Hgb 12.2 (11.5-15.4) g/dL Hct 37.6 (35.3-44.9) % MCV 87.0 (83.0-100.0) fL MCH 28.2 (28.0-33.3) pg MCHC 32.4 (31.6-35.5) g/dL RDW 17.4 H (11.5-14.5) % Plt Count 267 (140-400) K/mcL MPV 8.6 L (9.4-12.4) fL Immature Gran % 0.7 (0-4) % Seg Neutrophils % 61.7 % Lymphocytes % 29.9 % Monocytes % 7.2 % Eosinophils % 0.1 % Basophils % 0.4 % Neutrophils # 6.0 (1.6-8.9) K/mcL Lymphocytes # 2.9 (0.6-4.6) K/mcL Monocytes # 0.7 (0.0-1.3) K/mcL Eosinophils # 0.0 (0.0-0.6) K/mcL Basophils # 0.0 (0.0-0.2) K/mcL Sodium 139 (136-145) mEq/L Potassium 2.8 L (3.5-5.1) mEq/L Chloride 98 (98-107) mEq/L Carbon Dioxide 34 H (23-29) mEq/L BUN 8 (6-20) mg/dL Creatinine 0.55 L (0.60-1.20) mg/dL Est GFR ( Amer) > 60 (> 60) Est GFR (Non-Af Amer) > 60 (> 60) BUN/Creatinine Ratio 15 (6-26) Glucose 86 (70-105) mg/dL Calculated Osmolality 286 (280-300) Calcium 8.3 L (8.6-10.3) mg/dL Troponin I < 0.03 (< 0.04) ng/mL Urine Color (Yellow) Urine Clarity (Clear) Urine pH (5.0-8.0) pH Units Ur Specific [place] (1.010-1.025) Urine Protein (Neg-Trace) mg/dL Urine Glucose (UA) (Normal) mg/dL Urine Ketones (Negative) mg/dL Urine Blood (Negative) Urine Nitrite (Negative) Urine Bilirubin (Negative) Urine Urobilinogen (Normal) mg/dL Ur Leukocyte Esterase (Negative) Urine Microscopic RBC (0-3) per hpf Urine Microscopic WBC (0-3) per hpf Ur Squamous Epith Cells (None-Few) per lpf Urine Bacteria (None-Few) per hpf Hyaline Casts (None-Few) per lpf Ur Culture Indicated? (NO) 03/14/17 Range/Units 19:34 WBC (4.3-11.1) K/mcL RBC (3.82-4.97) M/mcL Hgb (11.5-15.4) g/dL Hct (35.3-44.9) % MCV (83.0-100.0) fL MCH (28.0-33.3) pg MCHC (31.6-35.5) g/dL RDW (11.5-14.5) % Plt Count (140-400) K/mcL MPV (9.4-12.4) fL Immature Gran % (0-4) % Seg Neutrophils % % Lymphocytes % % Monocytes % % Eosinophils % % Basophils % % Neutrophils # (1.6-8.9) K/mcL Lymphocytes # (0.6-4.6) K/mcL Monocytes # (0.0-1.3) K/mcL Eosinophils # (0.0-0.6) K/mcL Basophils # (0.0-0.2) K/mcL Sodium (136-145) mEq/L Potassium (3.5-5.1) mEq/L Chloride (98-107) mEq/L Carbon Dioxide (23-29) mEq/L BUN (6-20) mg/dL Creatinine (0.60-1.20) mg/dL Est GFR ( Amer) (> 60) Est GFR (Non-Af Amer) (> 60) BUN/Creatinine Ratio (6-26) Glucose (70-105) mg/dL Calculated Osmolality (280-300) Calcium (8.6-10.3) mg/dL Troponin I (< 0.04) ng/mL Urine Color Yellow (Yellow) Urine Clarity Cloudy A (Clear) Urine pH 6.5 (5.0-8.0) pH Units Ur Specific [place] 1.012 (1.010-1.025) Urine Protein Negative (Neg-Trace) mg/dL Urine Glucose (UA) Normal (Normal) mg/dL Urine Ketones Negative (Negative) mg/dL Urine Blood Small H (Negative) Urine Nitrite Positive A (Negative) Urine Bilirubin Negative (Negative) Urine Urobilinogen Normal (Normal) mg/dL Ur Leukocyte Esterase Large H (Negative) Urine Microscopic RBC 0-3 (0-3) per hpf Urine Microscopic WBC TNTC H (0-3) per hpf Ur Squamous Epith Cells Many H (None-Few) per lpf Urine Bacteria Many H (None-Few) per hpf Hyaline Casts None Seen (None-Few) per lpf Ur Culture Indicated? NO. (NO) - Radiology Data Radiology results reviewed: Yes I reviewed the patient's radiology results. Chest X-Ray 03/14/17 18:37 IMPRESSION: Negative portable study. D/ / Pham Hector Cha, MD / Pham Hector Cha, MD Interpreting Provider: Pham Hector Cha, MD Head CT 03/14/17 18:37 IMPRESSION: Focal areas of low-attenuation within the right frontal and probably parietal lobes, new since the prior study, worrisome for acute to subacute infarct. MRI is recommended to further evaluate. Findings were called to the ordering service at 7:19 pm on 03/14/2017. D/ / Pham Hector Cha, MD / Pham Hector Cha, MD Interpreting Provider: Pham Hector Cha, MD - EKG Data EKG attestation: Yes I reviewed and interpreted this EKG. EKG results narrative: EKG taken 1609 2017 at 1836 hrs. shows sinus rhythm at a rate of 78 bpm with no acute ST elevations or depressions any leads, but has mild prolongation of QT. Today's EKG looks improved from recent EKG taken 01/23/2017. NIH Stroke Scale - Level of Consciousness LOC: Alert - LOC Questions LOC Questions: Answers both correctly - LOC Commands LOC Commands: Performs both correctly - Best Gaze Best Gaze: Normal - Visual Visual: No visual loss - Facial Palsy Facial Palsy: Normal - Motor Arms Motor Arm-Left: No effort against gravity, limb falls to bed, some movement Motor Arm-Right: No drift for 10 seconds - Motor Legs Motor Leg-Left: No movement Motor Leg-Right: No drift for 5 seconds - Limb Ataxia Limb Ataxia: Absent of affected limb too weak to perform exam - Sensory Sensory: Normal - Best Language Best Language: No aphasia - Dysarthria Dysarthria: Normal - Extinction and Inattention Extinction and Inattention: Normal - NIHSS Total Score NIHSS Total Score: 7 TPA Checklist - LKW: 3-4.5 hrs Add. Warnings/Precautions Patient/family understanding: The patient/family members have been counseled and understood the risk, benefit , and alternatives of treatment.
--- NOTE | 2017-03-14 18:46 | Emergency Department Note ---
START Narrative - START START: I examined this patient and my medical decision-making was reviewed with the Resident Physician. I agree with the documented findings, disposition and treatment plan as described except to the extent set forth below. 47 year old female presents to the ED with complaitns of new increased left sided weakness and state that she was reated fro a stroke about 2 months ago ehre at [place]. Her last known well was 1.5 days ago when she woke up urinating in the bed and her spouse asked to take her to the doctor and she refused. PAtinet previous defecits are difficulty in walking. This is NOT a stroke alert. [facility] as she is already anticoagulated.
[2017-03-14 18:48] LABS: Basophils % 0.4 %; Eosinophils % 0.1 %; Hematocrit 37.6 % (35.3-44.9); Hemoglobin 12.2 g/dL (11.5-15.4); Immature Granulocytes % 0.7 % (0-4); Lymphocytes # 2.9 K/mcL (0.6-4.6); Lymphocytes % 29.9 %; Mean Corpuscular HGB Conc 32.4 g/dL (31.6-35.5); Mean Corpuscular Hemoglobin 28.2 pg (28.0-33.3); Mean Platelet Volume 8.6 fL (9.4-12.4); Monocytes # 0.7 K/mcL (0.0-1.3); Monocytes % 7.2 %; Platelet Count 267 K/mcL (140-400); Red Blood Count 4.32 M/mcL (3.82-4.97); Red Cell Distribution Width 17.4 % (11.5-14.5); Segmented Neutrophils % 61.7 %
[2017-03-14 19:03] LABS: BUN/Creatinine Ratio 15 (6-26); Blood Urea Nitrogen 8 mg/dL (6-20); Calcium 8.3 mg/dL (8.6-10.3); Carbon Dioxide 34 mEq/L (23-29); Chloride 98 mEq/L (98-107); Glucose 86 mg/dL (70-105); Osmolality,Calculated 286 (280-300); Potassium 2.8 mEq/L (3.5-5.1); Sodium 139 mEq/L (136-145); eGFR For African Americans > 60 (> 60); eGFR For Non-African Americans > 60 (> 60)
[2017-03-14] MEDS ORDERED: Aspirin 81 MG TAB.CHEW PO ONE (19:26)
[2017-03-14 19:46] LABS: Bilirubin,Urine Negative (Negative); Blood,Urine Small (Negative); Clarity,Urine Cloudy (Clear); Color,Urine Yellow (Yellow); Glucose,Urine (UA) Normal (Normal); Ketones,Urine Negative (Negative); Leukocyte Esterase,Urine Large (Negative); Nitrite,Urine Positive (Negative); PH,Urine 6.5 pH Units (5.0-8.0); Protein,Urine Negative (Neg-Trace); Specific Gravity,Urine 1.012 (1.010-1.025); Urobilinogen,Urine Normal (Normal)
[2017-03-14 19:49] LABS: Bacteria,Urine Many per hpf (None-Few); Hyaline Casts,Urine None Seen per lpf (None-Few); RBC,Urine 0-3 per hpf (0-3); Squamous Epithelial Cell,Urine Many per lpf (None-Few); WBC,Urine TNTC per hpf (0-3)
[2017-03-14] MEDS ORDERED: Naloxone 0.4 MG/ML INJ IVP PRN (22:17)
[2017-03-14] MEDS ORDERED: Acetaminophen 325 MG TABLET PO PRN (22:17)
[2017-03-14] MEDS ORDERED: tiZANidine 4 MG TABLET PO PRN (22:25)
[2017-03-14] MEDS ORDERED: traZODone 50 MG TABLET PO PRN (22:25)
[2017-03-14] MEDS ORDERED: hydrOXYzine pamoate 25 MG CAPSULE PO PRN (22:25)
[2017-03-14] MEDS ORDERED: *HR* LORazepam 2 MG/ML VIAL IVP PRN ×3 (23:11)
[2017-03-15] MEDS: levETIRAcetam 250 MG TABLET PO SCH ×3 (00:25→20:51)
--- NOTE | 2017-03-15 04:10 | Internal Med History&Physical ---
Date of Encounter: 03/14/17 Time of Encounter: 21:00 Assessment and Plan (1) CVA (cerebral vascular accident) Current visit: No Status: Acute Acute left side weakness with CT head shows acute/subacute infarct. Consider ischemic CVA on right frontal and probably parietal lobes. - Cont cardiac monitoring to r/o occult A Fib - Echo - MRI and MRA neck and head in AM - PT/OT evaluation. - Pt eating well, diet placed, will consult speech therapy and diet may adjusted per recommendation. - Neurology consult. 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 Pt refuse nicotine patch. (3) Alcohol abuse Current visit: No Status: Chronic Pt is currently alcoholism with daily 6 wine cooler wine. Denies symptoms of withdraw. Will place pt on CIWA protocol. (4) DVT prophylaxis Current visit: No Status: Acute Heparin SC (5) Hypokalemia Current visit: No Status: Acute Will give po supplement. F/U potassium level in AM and Check Mg level. (6) Seizure Current visit: No Status: Suspected Cont home medication. Internal Medicine - H&P: HPI Chief complaint: Left side weakness Admitted From: Home Plans for Post Hospital Care: Home History of present illness: Ms. Simmons is a 47 year old female with Hx of previous CVA, HTN, seizure, present to ER for left side weakness since monday night (2 days ago). Pt said since monday night, she started to feel weakness on both left arm and leg. On Monday she cannot move either left arm or left leg at all. Pt also c/o numbness on left side. No tingling. Pt denies headache, slurred speech, or choking/cough on eating. Pt apparently passed the window of tPA treatment when she got to ER. CT scan shows Right frontal and probably parietal lobes acute/subacute infarct. Pt was admitted for CVA. I have discussed CODE status with pt, she clearly told me she doesn't want CPR or intubation. DNR/DNI placed. Past Med Surg Social Fam HX - Past Medical History Medical history: CVA, liver disease, other Psychiatric history: anxiety, bipolar, depression, other - Past Surgical History Surgical History: - Social History Smoking Status: Current every day smoker Smokeless Tobacco Status: No Alcohol use: heavy Drug use: marijuana - Family History Grandmother Family Member Ethnicity: Non- Living Status: Hx Family Cardiac Disorders: Yes (Stroke) Hx Family Neuromuscular Disorders: Yes (CVA) Hx Family Neurologic Disorders: Yes (Stroke) Father Family Member Ethnicity: Non- Living Status: Still Living Mother Adopted: No Family Member Ethnicity: Unknown Living Status: Still Living Hx Family Cardiac Disorders: Yes (CAD) Hx Family Respiratory Disorders: Yes (COPD) Hx Family Cancer: No Hx Family GI Disorders: No Hx Family Endocrine Disorder: No Hx Family Neuromuscular Disorders: No Hx Family Neurologic Disorders: No Hx Family HEENT Disorders: No Hx Family Autoimmune Disorders: No Internal Medicine - H&P: Meds RisperiDONE [RisperDAL] 2 mg PO HS 12/22/14 [History] Citalopram Hydrobromide [Celexa] 40 mg PO DAILY 12/08/16 [History] DiphenhydraMINE [Benadryl] 50 mg PO HS 12/08/16 [History] HydrOXYzine Pamoate [Vistaril] 50 mg PO TID PRN 12/08/16 [History] Tizanidine HCl 4 mg PO Q8H PRN 12/08/16 [History] Trazodone HCl 150 - 300 mg PO HS PRN 12/08/16 [History] lamoTRIgine [Lamictal Xr] 200 mg PO DAILY 12/08/16 [History] Metoprolol XL (24 HR) Succ [Toprol Xl] 25 mg PO DAILY #30 tab.er.24h 12/09/16 [ Rx] Gabapentin [Neurontin] 300 mg PO TID 12/19/16 [History] Aspirin 81 mg PO DAILY #30 tab.chew 12/21/16 [Rx] Clopidogrel [Plavix] 75 mg PO DAILY #30 tablet 12/21/16 [Rx] Cyanocobalamin (B-12) [Vitamin B12] 1,000 mcg PO DAILY #30 tablet 12/21/16 [Rx] Folic Acid 1 mg PO DAILY #30 tablet 12/21/16 [Rx] Simvastatin [Zocor] 20 mg PO QPM #30 tablet 12/21/16 [Rx] LevETIRAcetam [Keppra] 500 mg PO BID #60 tablet 01/24/17 [Rx] 3 Allergy/AdvReac Type Severity Reaction Status Date / Time No Known Allergies Allergy Verified 12/22/14 18:27 All Systems PM: A 10-system review of systems was performed and is negative for pertinent findings except as documented above in the HPI. - Constitutional Vitals: Temp Pulse Resp BP Pulse Ox 98.1 F 77 15 126/90 97 03/14/17 23:15 03/14/17 23:15 03/14/17 23:15 03/14/17 23:15 03/14/17 23:15 General appearance: Present: A&O X 3, no acute distress, answers questions appropriately - Head Head exam: Present: atraumatic, normocephalic - Eye Eye exam: Present: PERRL, conjuntiva pink, sclera anicteric Pupils: Present: PERRL - Neck Neck exam general surgery: Present: supple, trachea midline. Absent: lymphadenopathy - Respiratory Respiratory exam: Present: CTAB. Absent: accessory muscle use, rales, rhonchi, wheezes - Cardiovascular Cardiovascular exam: Present: RRR, +S1, +S2. Absent: diastolic murmur, gallop, rubs, systolic murmur - GI/Abdominal GI/Abdominal exam: Present: normal bowel sounds, soft, no peritoneal signs. Absent: distended, tenderness - Extremities Exam Extremities exam: Present: warm, radial pulses palpable and symmetrical. Absent : calf tenderness, cyanotic, pedal edema - Neurological Exam Neurological exam: Present: CN II-XII intact, motor sensory deficit (Motor 0/5 on both LUE and LLE), oriented X3, no focal deficits. Absent: facial droop, speech deficit - Skin Skin exam: Present: dry, intact Internal Med - H&P Results - Labs CBC & Chem 7: 03/14/17 18:37 03/14/17 18:37 - EKG Data -: EKG Interpreted by Myself EKG shows normal: sinus rhythm Rate: normal
[2017-03-15 06:08] LABS: Basophils % 0.5 %; Eosinophils % 0.1 %; Hematocrit 35.1 % (35.3-44.9); Hemoglobin 11.5 g/dL (11.5-15.4); Immature Granulocytes % 0.5 % (0-4); Lymphocytes # 2.2 K/mcL (0.6-4.6); Lymphocytes % 29.2 %; Mean Corpuscular HGB Conc 32.8 g/dL (31.6-35.5); Mean Corpuscular Hemoglobin 28.6 pg (28.0-33.3); Mean Corpuscular Volume 87.3 fL (83.0-100.0); Mean Platelet Volume 8.7 fL (9.4-12.4); Monocytes # 0.6 K/mcL (0.0-1.3); Monocytes % 7.9 %; Neutrophils # 4.7 K/mcL (1.6-8.9); Platelet Count 236 K/mcL (140-400); Red Blood Count 4.02 M/mcL (3.82-4.97); Red Cell Distribution Width 17.6 % (11.5-14.5); Segmented Neutrophils % 61.8 %
[2017-03-15 06:22] LABS: BUN/Creatinine Ratio 17 (6-26); Blood Urea Nitrogen 7 mg/dL (6-20); Calcium 7.9 mg/dL (8.6-10.3); Carbon Dioxide 32 mEq/L (23-29); Chloride 105 mEq/L (98-107); Glucose 86 mg/dL (70-105); Osmolality,Calculated 285 (280-300); Potassium 3.1 mEq/L (3.5-5.1); Sodium 139 mEq/L (136-145); eGFR For African Americans > 60 (> 60); eGFR For Non-African Americans > 60 (> 60)
[2017-03-15] MEDS: *HR* Heparin 5,000 UNIT/ML VIAL SQ SCH ×3 (06:23→17:06)
[2017-03-15] MEDS ORDERED: Potassium Chloride 40 MEQ, Lidocaine 1% 2 ML in D5% in Water 500 ML IVPB ONE (08:39)
--- NOTE | 2017-03-15 08:49 | Event Note ---
Date of Encounter: 03/15/17 Time of Encounter: 08:46 Ms. Simmons is a 47 year old female with Hx of previous CVA, HTN, seizure, present to ER for left side weakness since monday night (2 days ago). Pt said since monday, she started to feel weakness on both left arm and leg. On Monday she cannot move either left arm or left leg at all. Pt also c/o numbness on left side. No tingling. Pt denies headache, slurred speech, or choking/cough on eating. Pt apparently passed the window of tPA treatment when she got to ER. CT scan shows Right frontal and probably parietal lobes acute/subacute infarct. Pt was admitted for CVA. Patient was admitted for acute stroke, she presented was 2 days of left-sided weakness. Not a candidate for TPA. Medical history reviewed lab shows hypokalemia and a UTI will replace sore IV and start antibiotics. Patient does state she has recurrent UTI, denies painful and frequent urination. We will do urine culture .
[2017-03-15] MEDS: Aspirin 81 MG TAB.CHEW PO SCH (09:29)
[2017-03-15] MEDS: Thiamine (B-1) 100 MG TABLET PO SCH (09:29)
[2017-03-15] MEDS: lamoTRIgine 100 MG TABLET PO SCH (09:30)
[2017-03-15] MEDS: Metoprolol XL (24 HR) Succ 25 MG TAB.ER.24H PO SCH (09:30)
[2017-03-15] MEDS: Vitamin B Complex/Vit C/Vit E 1 EACH TABLET PO SCH (09:30)
[2017-03-15] MEDS: Gabapentin 300 MG CAPSULE PO SCH ×3 (09:30→20:52)
[2017-03-15] MEDS: cefTRIAXone 1,000 MG in Water for inj. (sterile) 10 ML IVP SCH (09:30)
[2017-03-15] MEDS: Folic Acid 1 MG TABLET PO SCH (09:30)
[2017-03-15] MEDS: Cyanocobalamin (B-12) 1,000 MCG TABLET PO SCH (09:30)
--- NOTE | 2017-03-15 10:27 | Neurology - Consult Note ---
Date of Encounter: 03/15/17 Time of Encounter: 10:24 Assessment and Plan (1) CVA (cerebral vascular accident) Current Visit: No Status: Acute MRI shows acute infarction in watershed territory of right cerebral hemisphere, including watershed area between both CATHY/MCA and MCA/[employer]. This is indicitive of a more global process of infarction, possibly related to transient hypoperfusion. 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 Thromoembolic phenomenon is possible but felt to be less likely. Recommend continuing ASA, plavix, statin. Agree with PT/OT evaluation and continued treatment. We would recommend against strict blood pressure control as hypoperfusion may have contributed to the patients CVA. Qualifiers: CVA mechanism: unspecified Qualified Code(s): I63.9 - Cerebral infarction, unspecified (2) Seizure Current Visit: No Status: Suspected No evidence of recent seizure activity. Continue home AEDs History of Present Illness Chief complaint: Weakness HPI: Ms. Simmons is a 47 year old female with history of CVA, seizure activity presents with left-sided numbness and weakness. She states that Monday night she woke up with difficulty moving the left side of her body and numbness. She states that she woke up with these symptoms. She tried to get out of bed and had a fall causing the symptoms. He reports having similar symptoms in the past that affected both her right and left side when she was diagnosed with previously. She denies any facial involvement, slurred speech, difficulty swallowing, confusion. Past Med Surg Social Fam HX - Past Medical History Medical history: CVA, liver disease, other Psychiatric history: anxiety, bipolar, depression, other - Past Surgical History Surgical History: - Social History Smoking Status: Current every day smoker Smokeless Tobacco Status: No Alcohol use: heavy Drug use: marijuana - Family History Grandmother Family Member Ethnicity: Non- Living Status: Hx Family Cardiac Disorders: Yes (Stroke) Hx Family Neuromuscular Disorders: Yes (CVA) Hx Family Neurologic Disorders: Yes (Stroke) Father Family Member Ethnicity: Non- Living Status: Still Living Mother Adopted: No Family Member Ethnicity: Unknown Living Status: Still Living Hx Family Cardiac Disorders: Yes (CAD) Hx Family Respiratory Disorders: Yes (COPD) Hx Family Cancer: No Hx Family GI Disorders: No Hx Family Endocrine Disorder: No Hx Family Neuromuscular Disorders: No Hx Family Neurologic Disorders: No Hx Family HEENT Disorders: No Hx Family Autoimmune Disorders: No Medications and Allergies RisperiDONE [RisperDAL] 2 mg PO HS 12/22/14 [History] Citalopram Hydrobromide [Celexa] 40 mg PO DAILY 12/08/16 [History] DiphenhydraMINE [Benadryl] 50 mg PO HS 12/08/16 [History] HydrOXYzine Pamoate [Vistaril] 50 mg PO TID PRN 12/08/16 [History] Tizanidine HCl 4 mg PO Q8H PRN 12/08/16 [History] Trazodone HCl 150 - 300 mg PO HS PRN 12/08/16 [History] lamoTRIgine [Lamictal Xr] 200 mg PO DAILY 12/08/16 [History] Metoprolol XL (24 HR) Succ [Toprol Xl] 25 mg PO DAILY #30 tab.er.24h 12/09/16 [ Rx] Gabapentin [Neurontin] 300 mg PO TID 12/19/16 [History] Aspirin 81 mg PO DAILY #30 tab.chew 12/21/16 [Rx] Clopidogrel [Plavix] 75 mg PO DAILY #30 tablet 12/21/16 [Rx] Cyanocobalamin (B-12) [Vitamin B12] 1,000 mcg PO DAILY #30 tablet 12/21/16 [Rx] Folic Acid 1 mg PO DAILY #30 tablet 12/21/16 [Rx] Simvastatin [Zocor] 20 mg PO QPM #30 tablet 12/21/16 [Rx] LevETIRAcetam [Keppra] 500 mg PO BID #60 tablet 01/24/17 [Rx] 3 Allergy/AdvReac Type Severity Reaction Status Date / Time No Known Allergies Allergy Verified 12/22/14 18:27 All Systems: A 10-system review of systems was performed and is negative for pertinent findings except as documented above in the HPI. - Constitutional Constitutional ROS IM: weakness - Nose, Mouth, Throat Nose, mouth and throat: no disequilibrium, no dizziness - Cardiovascular Cardiovascular ROS IM: no chest pain, no irregular heart rhythm, no palpitations , no rapid heart rate - Respiratory Respiratory IM: no dyspnea - Gastrointestinal Gastrointestinal: no abdominal pain, no change in bowel habits - Musculoskeletal Musculoskeletal ROS IM: muscle weakness, numbness, no tingling - Integumentary Integumentary IM: no non-healing lesions - Neurological Neurological ROS: abnormal gait, focal weakness, lack of coordination, numbness , sensory deficit, weakness, no abnormal movements, no abnormal speech, no behavioral changes, no burning sensations, no confusion, no convulsions, no disequilibrium, no dizziness, no headache(s), no loss of vision, no memory loss , no syncope, no tingling, no tremor(s) - Psychiatric Psychiatric general PM: no behavioral changes, no confusion, no hallucinations Physical Examination - Vital Signs Vital Signs: Initial Vital Signs Temp Pulse Resp BP Pulse Ox 98.1 F 80 16 133/101 96 03/14/17 18:30 03/14/17 18:30 03/14/17 18:30 03/14/17 18:30 03/14/17 18:30 - Constitutional General appearance: comfortable - Neurologic Sensorimotor examination: hemiparesis (L) Motor examination - right side: 4/5: biceps, triceps, hose maker, quadriceps Detailed sensory examination: light touch (Equal in b/l UE, diminished light touch in LLE) Reflexes: Biceps: 0 (b/l), Brachioradialis: 0 (b/l), Patella: 0 (b/l) Mental Status Examination: awake, alert, oriented to person, oriented to place, oriented to time, follows commands appropriately, answers questions appropriately, no aphasia Cranial nerve examination: PERRL, EOMI, sensory to face intact, mastication intact, no facial asymmetry is present, no dysarthria, flexes SCM and trapezius muscles symmetrically with full power, tongue protrudes midline Results - Laboratory Findings CBC and BMP: 03/15/17 05:53 03/15/17 05:53 Abnormal lab findings: Abnormal lab results Hct 35.1 % (35.3-44.9) L 03/15/17 05:53 RDW 17.6 % (11.5-14.5) H 03/15/17 05:53 MPV 8.7 fL (9.4-12.4) L 03/15/17 05:53 Potassium 3.1 mEq/L (3.5-5.1) L 03/15/17 05:53 Carbon Dioxide 32 mEq/L (23-29) H 03/15/17 05:53 Creatinine 0.42 mg/dL (0.60-1.20) L 03/15/17 05:53 Calcium 7.9 mg/dL (8.6-10.3) L 03/15/17 05:53 Urine Clarity Cloudy (Clear) A 03/14/17 19:34 Urine Blood Small (Negative) H 03/14/17 19:34 Urine Nitrite Positive (Negative) A 03/14/17 19:34 Ur Leukocyte Esterase Large (Negative) H 03/14/17 19:34 Urine Microscopic WBC TNTC per hpf (0-3) H 03/14/17 19:34 Ur Squamous Epith Cells Many per lpf (None-Few) H 03/14/17 19:34 Urine Bacteria Many per hpf (None-Few) H 03/14/17 19:34 Consult Discharge Plan - Plan Referrals: Duong Tejada MD [Primary Care Provider] - (SENT WEB REQUEST ON 03-15-17 @ [id number])
--- NOTE | 2017-03-15 12:24 | Electrocardiograph Report ---
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
--- NOTE | 2017-03-15 17:13 | Neurology - Consult Note ---
Date of Encounter: 03/15/17 Time of Encounter: 17:07 Assessment and Plan (1) CVA (cerebral vascular accident) Current Visit: No Status: Acute Patient developed acute watershed cerebral infarct to the right side, likely secondary to right ICA total occlusion. She has had the condition since 2016. However, she does have cross filling of the right ICA terminus evidenced on MRA of brain therefore she may have established collaterals. What happened could be secondary to cerebral hypoperfusion causing watershed infarct with right ICA total occlusion. Therefore will recommend to avoid hypotension and permissive hypertension can be allowed as high as 160/95mmHg. Echocardiography completed and showed no significant abnormality. Will keep her on combination of aspirin 81mg daily and plavix 75mg daily for secondary CVA prevention. Continue statin therapy. PT/OT Patients with watershed infarct tend to have proximal arm and leg weakness. It is expected that she is likely to have significant left sided weakness in the future. Patient should follow up with me in neurology clinic 2-3 weeks after discharge. Qualifiers: CVA mechanism: occlusion Precerebral and cerebral artery: carotid artery Laterality of affected vessel: right Qualified Code(s): I63.231 - Cerebral infarction due to unspecified occlusion or stenosis of right carotid arteries History of Present Illness Chief complaint: left sided weakness HPI: Ms. Simmons is a 47 year old female with PMH significant for CVA 11/2016, total right ICA occlusion (11/2016) history of paraplegia unclear etiology, obesity, OA of left knee, degenerative tear of left medial meniscus, new diagnosis of seizure disorder, peripheral neuropahty, alcohol dependency, biplar II disorder who developed acute onset of left sided weakness for two days. No speech difficulty. She has had previous infarct during 11/2016 with left sided weakness. Also has idiopathic bilateral leg weakness and paresthesia, paraplegia since the last few months. Two days ago she developed left sided weakness. She can not lift left arm up but does have some spray drier to the left hand. No speech difficulty, no mental status changes. MRI of brain confirmed watershed cerebral infarct to the right hemispheria quite typical. Has known history of right ICA total occlusion. She may have UTI per urine analysis findings. BP was once in 120's systolically. Past Med Surg Social Fam HX - Past Medical History Medical history: CVA, liver disease, other Psychiatric history: anxiety, bipolar, depression, other - Past Surgical History Surgical History: - Social History Smoking Status: Current every day smoker Smokeless Tobacco Status: No Alcohol use: heavy Drug use: marijuana - Family History Grandmother Family Member Ethnicity: Non- Living Status: Hx Family Cardiac Disorders: Yes (Stroke) Hx Family Neuromuscular Disorders: Yes (CVA) Hx Family Neurologic Disorders: Yes (Stroke) Father Family Member Ethnicity: Non- Living Status: Still Living Mother Adopted: No Family Member Ethnicity: Unknown Living Status: Still Living Hx Family Cardiac Disorders: Yes (CAD) Hx Family Respiratory Disorders: Yes (COPD) Hx Family Cancer: No Hx Family GI Disorders: No Hx Family Endocrine Disorder: No Hx Family Neuromuscular Disorders: No Hx Family Neurologic Disorders: No Hx Family HEENT Disorders: No Hx Family Autoimmune Disorders: No Medications and Allergies RisperiDONE [RisperDAL] 2 mg PO HS 12/22/14 [History] Citalopram Hydrobromide [Celexa] 40 mg PO DAILY 12/08/16 [History] DiphenhydraMINE [Benadryl] 50 mg PO HS 12/08/16 [History] HydrOXYzine Pamoate [Vistaril] 50 mg PO TID PRN 12/08/16 [History] Tizanidine HCl 4 mg PO Q8H PRN 12/08/16 [History] Trazodone HCl 150 - 300 mg PO HS PRN 12/08/16 [History] lamoTRIgine [Lamictal Xr] 200 mg PO DAILY 12/08/16 [History] Metoprolol XL (24 HR) Succ [Toprol Xl] 25 mg PO DAILY #30 tab.er.24h 12/09/16 [ Rx] Gabapentin [Neurontin] 300 mg PO TID 12/19/16 [History] Aspirin 81 mg PO DAILY #30 tab.chew 12/21/16 [Rx] Clopidogrel [Plavix] 75 mg PO DAILY #30 tablet 12/21/16 [Rx] Cyanocobalamin (B-12) [Vitamin B12] 1,000 mcg PO DAILY #30 tablet 12/21/16 [Rx] Folic Acid 1 mg PO DAILY #30 tablet 12/21/16 [Rx] Simvastatin [Zocor] 20 mg PO QPM #30 tablet 12/21/16 [Rx] LevETIRAcetam [Keppra] 500 mg PO BID #60 tablet 01/24/17 [Rx] 3 Allergy/AdvReac Type Severity Reaction Status Date / Time No Known Allergies Allergy Verified 12/22/14 18:27 All Systems: A 10-system review of systems was performed and is negative for pertinent findings except as documented above in the HPI. Physical Examination - Vital Signs Vital Signs: Initial Vital Signs Temp Pulse Resp BP Pulse Ox 98.1 F 80 16 133/101 96 03/14/17 18:30 03/14/17 18:30 03/14/17 18:30 03/14/17 18:30 03/14/17 18:30 - Constitutional General appearance: comfortable - Neurologic Sensorimotor examination: other (Has loss of sensation to the legs and below T10 , which has been chronic in nature) Motor examination - right side: 5/5: deltoids, biceps, triceps, wrist flexion, wrist extension, spray drier, hip flexors, tibialis Anterior, quadriceps, toe extension (EHL), plantarflexion Motor examination - left side: 5: deltoids, biceps, triceps, wrist flexion, wrist extension, quadriceps, tibialis Anterior, toe extension (EHL), plantarflexion, 4/5: spray drier Detailed sensory examination: other (Loss of sensation to legs bilaterally, below T-10 level, which has been chronic in nature) Reflexes: Biceps: 0, Triceps: 0, Brachioradialis: 0, Patella: 0, Achilles: 0 Mental Status Examination: awake, alert, oriented to person, oriented to place, oriented to time, follows commands appropriately, answers questions appropriately, no agnosia, no aphasia, no aproxia Results - Laboratory Findings CBC and BMP: 03/15/17 05:53 03/15/17 05:53 Abnormal lab findings: Abnormal lab results Hct 35.1 % (35.3-44.9) L 03/15/17 05:53 RDW 17.6 % (11.5-14.5) H 03/15/17 05:53 MPV 8.7 fL (9.4-12.4) L 03/15/17 05:53 Potassium 3.1 mEq/L (3.5-5.1) L 03/15/17 05:53 Carbon Dioxide 32 mEq/L (23-29) H 03/15/17 05:53 Creatinine 0.42 mg/dL (0.60-1.20) L 03/15/17 05:53 Calcium 7.9 mg/dL (8.6-10.3) L 03/15/17 05:53 Urine Clarity Cloudy (Clear) A 03/14/17 19:34 Urine Blood Small (Negative) H 03/14/17 19:34 Urine Nitrite Positive (Negative) A 03/14/17 19:34 Ur Leukocyte Esterase Large (Negative) H 03/14/17 19:34 Urine Microscopic WBC TNTC per hpf (0-3) H 03/14/17 19:34 Ur Squamous Epith Cells Many per lpf (None-Few) H 03/14/17 19:34 Urine Bacteria Many per hpf (None-Few) H 03/14/17 19:34 - Diagnostic Findings Additional findings: EV/EV echocardiogram Impressions: LVEF 60%. Mild left ventricular diastolic dysfunction. Normal right ventricular structure and function. No significant valvular dysfunction. No pulmonary hypertension. No PFO with saline contrast injection. Consult Discharge Plan - Plan Referrals: Duong Tejada MD [Primary Care Provider] - (SENT WEB REQUEST ON 03-15-17 @ [id number])
[2017-03-15] MEDS: risperiDONE 1 MG TABLET PO SCH (20:51)
[2017-03-16 05:24] LABS: Basophils % 0.5 %; Eosinophils % 0.2 %; Hematocrit 34.5 % (35.3-44.9); Hemoglobin 11.1 g/dL (11.5-15.4); Immature Granulocytes % 0.5 % (0-4); Lymphocytes # 2.7 K/mcL (0.6-4.6); Lymphocytes % 42.3 %; Mean Corpuscular HGB Conc 32.2 g/dL (31.6-35.5); Mean Corpuscular Hemoglobin 28.4 pg (28.0-33.3); Mean Corpuscular Volume 88.2 fL (83.0-100.0); Mean Platelet Volume 8.8 fL (9.4-12.4); Monocytes # 0.5 K/mcL (0.0-1.3); Monocytes % 8.1 %; Neutrophils # 3.1 K/mcL (1.6-8.9); Platelet Count 250 K/mcL (140-400); Red Blood Count 3.91 M/mcL (3.82-4.97); Red Cell Distribution Width 17.8 % (11.5-14.5); Segmented Neutrophils % 48.4 %
[2017-03-16 05:42] LABS: BUN/Creatinine Ratio 13 (6-26); Blood Urea Nitrogen 5 mg/dL (6-20); Carbon Dioxide 32 mEq/L (23-29); Chloride 108 mEq/L (98-107); Glucose 86 mg/dL (70-105); Osmolality,Calculated 291 (280-300); Potassium 3.2 mEq/L (3.5-5.1); Sodium 142 mEq/L (136-145); eGFR For African Americans > 60 (> 60); eGFR For Non-African Americans > 60 (> 60)
[2017-03-16] MEDS: *HR* Heparin 5,000 UNIT/ML VIAL SQ SCH ×2 (06:34→20:36)
[2017-03-16] MEDS: cefTRIAXone 1,000 MG in Water for inj. (sterile) 10 ML IVP SCH (08:08)
[2017-03-16] MEDS: lamoTRIgine 100 MG TABLET PO SCH (08:09)
[2017-03-16] MEDS: Aspirin 81 MG TAB.CHEW PO SCH (08:09)
[2017-03-16] MEDS: Vitamin B Complex/Vit C/Vit E 1 EACH TABLET PO SCH (08:09)
[2017-03-16] MEDS: Folic Acid 1 MG TABLET PO SCH (08:09)
[2017-03-16] MEDS: Metoprolol XL (24 HR) Succ 25 MG TAB.ER.24H PO SCH (08:09)
[2017-03-16] MEDS: Gabapentin 300 MG CAPSULE PO SCH ×3 (08:09→20:35)
[2017-03-16] MEDS: Cyanocobalamin (B-12) 1,000 MCG TABLET PO SCH (08:09)
[2017-03-16] MEDS: levETIRAcetam 250 MG TABLET PO SCH ×2 (08:09→20:36)
[2017-03-16] MEDS: Thiamine (B-1) 100 MG TABLET PO SCH (08:09)
--- NOTE | 2017-03-16 13:01 | Neurology Progress Note ---
Date of Encounter: 03/16/17 Time of Encounter: 12:59 Assessment and Plan (1) CVA (cerebral vascular accident) Current Visit: No Status: Acute Right hemispheric watershed infarct, secondary to right ICA total occlusion, likely on top of hypoperfusion events. Stable but needs PT due to significant left sided hemiparalysis. Continue Aspirin 81mg and plavix 75mg daily. Continue statin therapy. PT. Patient to follow up in neurology clinic with me 2-3 weeks after discharge. Elected knee surgery would have to be postponed at least few months due to new CVA. Qualifiers: CVA mechanism: occlusion Precerebral and cerebral artery: carotid artery Laterality of affected vessel: right Qualified Code(s): I63.231 - Cerebral infarction due to unspecified occlusion or stenosis of right carotid arteries Subjective Principal diagnosis: CVA Interval history: Patient seen and examined. Her symptoms have been stable and no changed over night. Left side weakness quite profound especially proximal muscle groups. Unable to lift the left off the bed and is externally rotated position. Has ACL tear to the left knee. and has some knee pain. Mental status is normal. Language not affected. Objective - Constitutional Vitals: Temp Pulse Resp BP Pulse Ox 98.2 F 88 18 142/94 92 03/16/17 11:47 03/16/17 11:47 03/16/17 11:47 03/16/17 11:47 03/16/17 11:47 - Neurological Exam Sensorimotor examination: Present: other (Has loss of sensation to the legs and below T10, which has been chronic in nature) Motor examination - left side: 1/5: deltoids, biceps, triceps, wrist flexion, wrist extension, quadriceps, tibialis Anterior, toe extension (EHL), plantarflexion, 4/5: board certified orthodontist Sensation intact: Present: other (Loss of sensation to legs bilaterally, below T -10 level, which has been chronic in nature) Mental Status Examination: Present: awake, alert, oriented to person, oriented to place, oriented to time, follows commands appropriately, answers questions appropriately, no agnosia, no aphasia, no aproxia Cranial nerve examination: Present: PERRL, EOMI, sensory to face intact, mastication intact, no facial asymmetry is present, no dysarthria, flexes SCM and trapezius muscles symmetrically with full power, tongue protrudes midline Results - Laboratory Findings CBC and BMP: 03/16/17 04:37 03/16/17 04:37 Abnormal lab findings: Abnormal lab results Hgb 11.1 g/dL (11.5-15.4) L 03/16/17 04:37 Hct 34.5 % (35.3-44.9) L 03/16/17 04:37 RDW 17.8 % (11.5-14.5) H 03/16/17 04:37 MPV 8.8 fL (9.4-12.4) L 03/16/17 04:37 Potassium 3.2 mEq/L (3.5-5.1) L 03/16/17 04:37 Chloride 108 mEq/L (98-107) H 03/16/17 04:37 Carbon Dioxide 32 mEq/L (23-29) H 03/16/17 04:37 BUN 5 mg/dL (6-20) L 03/16/17 04:37 Creatinine 0.40 mg/dL (0.60-1.20) L 03/16/17 04:37 Calcium 8.0 mg/dL (8.6-10.3) L 03/16/17 04:37 Urine Clarity Cloudy (Clear) A 03/14/17 19:34 Urine Blood Small (Negative) H 03/14/17 19:34 Urine Nitrite Positive (Negative) A 03/14/17 19:34 Ur Leukocyte Esterase Large (Negative) H 03/14/17 19:34 Urine Microscopic WBC TNTC per hpf (0-3) H 03/14/17 19:34 Ur Squamous Epith Cells Many per lpf (None-Few) H 03/14/17 19:34 Urine Bacteria Many per hpf (None-Few) H 03/14/17 19:34 Consult Discharge Plan - Plan Referrals: Duong Tejada MD [Primary Care Provider] - (SENT WEB REQUEST ON 03-15-17 @ [phone])
--- NOTE | 2017-03-16 17:50 | Internal Med Progress Note ---
Date of Encounter: 03/16/17 Time of Encounter: 17:46 - Assessment and plan (1) CVA (cerebral vascular accident) Current Visit: Yes Status: Acute Assessment and plan: Right hemispheric watershed infarct, neurology is consulted. Continue Aspirin 81mg and plavix 75mg daily. Continue statin therapy. PT. Patient to follow up in neurology clinic with me 2-3 weeks after discharge. Elected knee surgery would have to be postponed at least few months due to new CVA. pending inpatient rehab Qualifiers: CVA mechanism: occlusion Precerebral and cerebral artery: carotid artery Laterality of affected vessel: right Qualified Code(s): I63.231 - Cerebral infarction due to unspecified occlusion or stenosis of right carotid arteries (2) Alcohol abuse Current Visit: Yes Status: Chronic Assessment and plan: no signs for withdrawal, conitnue folci acid, thiiamine (3) UTI (urinary tract infection) Current Visit: Yes Status: Acute Assessment and plan: on cefttriaxone, pending sensitivity Qualifiers: Urinary tract infection type: acute cystitis Hematuria presence: with hematuria Qualified Code(s): N30.01 - Acute cystitis with hematuria (4) Bipolar 1 disorder, depressed Current Visit: Yes Status: Chronic (5) Seizure Current Visit: Yes Status: Chronic (6) Hypokalemia due to inadequate potassium intake Current Visit: No Status: Acute Assessment and plan: continue oral replacement (7) Tobacco abuse Current Visit: Yes Status: Acute Assessment and plan: on nicotine patch - Time Spent With Patient 25 - 35 minutes - Subjective Interval history: Ms. Simmons is a 47 year old female with Hx of previous CVA, HTN, seizure, present to ER for left side weakness since monday night (2 days ago). Pt said since monday, she started to feel weakness on both left arm and leg. On Monday she cannot move either left arm or left leg at all. Pt also c/o numbness on left side. No tingling. Pt denies headache, slurred speech, or choking/cough on eating. Pt apparently passed the window of tPA treatment when she got to ER. CT scan shows Right frontal and probably parietal lobes acute/subacute infarct. Pt was admitted for CVA on 03/15 Patient was admitted for acute stroke, she presented was 2 days of left-sided weakness. Not a candidate for TPA . Patient is doing okay, she passed a swallow evaluation on a daily diet. PT and OT recommended inpatient rehabilitation. Her weakness is the same - Constitutional Vitals: Temp Pulse Resp BP Pulse Ox 97.9 F 88 16 147/90 95 03/16/17 16:45 03/16/17 16:45 03/16/17 16:45 03/16/17 16:45 03/16/17 16:45 General appearance: Present: A&O X 3, no acute distress, answers questions appropriately Exam: CONSTITUTIONAL: patient appears as an age appropriate female in no acute distress. EYES Clear sclerae, bilateral pupils are equal, reactive to light. EMOI. RESPIRATORY: No accessory muscle use, bilateral clear to auscultation, no wheezing, no crackles/rales. CARDIOVASCULAR: Regular heart rate, normal S1 and S2, no murmurs GASTROINTESTINAL: bowel sounds present, soft, no tenderness. MUSCULOSKELETAL: Joints in normal range of motion, no clubbing, no edema, no cyanosis. Bilateral peripheral pulses 2+. NEUROLOGIC: CN II to XII are grossly intact, leeft hemiparplegia Internal Medicine: Result - Labs CBC & Chem 7: 03/16/17 04:37 03/16/17 04:37 Labs: Short CBC 03/16/17 Range/Units 04:37 WBC 6.5 (4.3-11.1) K/mcL Hgb 11.1 L (11.5-15.4) g/dL Hct 34.5 L (35.3-44.9) % Plt Count 250 (140-400) K/mcL Neutrophils # 3.1 (1.6-8.9) K/mcL BMP 03/16/17 04:37 Sodium 142 Potassium 3.2 L Chloride 108 H Carbon Dioxide 32 H BUN 5 L Creatinine 0.40 L Glucose 86 Calcium 8.0 L - VTE Documentation of Mechanical Device: Intermittent pneumatic compression device Consult Discharge Plan - Plan Referrals: Duong Tejada MD [Primary Care Provider] - (SENT WEB REQUEST ON 03-15-17 @ 1354)
[2017-03-16] MEDS: risperiDONE 1 MG TABLET PO SCH (20:36)
[2017-03-17 04:07] LABS: BUN/Creatinine Ratio 9 (6-26); Blood Urea Nitrogen 4 mg/dL (6-20); Calcium 8.4 mg/dL (8.6-10.3); Carbon Dioxide 31 mEq/L (23-29); Chloride 107 mEq/L (98-107); Glucose 90 mg/dL (70-105); Osmolality,Calculated 286 (280-300); Potassium 3.7 mEq/L (3.5-5.1); Sodium 140 mEq/L (136-145); eGFR For African Americans > 60 (> 60); eGFR For Non-African Americans > 60 (> 60)
[2017-03-17] MEDS: *HR* Heparin 5,000 UNIT/ML VIAL SQ SCH ×2 (06:47→17:25)
[2017-03-17] MEDS: Folic Acid 1 MG TABLET PO SCH (10:27)
[2017-03-17] MEDS: cefTRIAXone 1,000 MG in Water for inj. (sterile) 10 ML IVP SCH (10:28)
[2017-03-17] MEDS: Cyanocobalamin (B-12) 1,000 MCG TABLET PO SCH (10:29)
[2017-03-17] MEDS: Aspirin 81 MG TAB.CHEW PO SCH (10:29)
[2017-03-17] MEDS: Vitamin B Complex/Vit C/Vit E 1 EACH TABLET PO SCH (10:29)
[2017-03-17] MEDS: Thiamine (B-1) 100 MG TABLET PO SCH (10:29)
[2017-03-17] MEDS: Metoprolol XL (24 HR) Succ 25 MG TAB.ER.24H PO SCH (10:29)
[2017-03-17] MEDS: lamoTRIgine 100 MG TABLET PO SCH (10:30)
[2017-03-17] MEDS: Gabapentin 300 MG CAPSULE PO SCH ×2 (10:30→17:25)
[2017-03-17] MEDS: levETIRAcetam 250 MG TABLET PO SCH (10:32)
--- NOTE | 2017-03-17 12:37 | Event Note ---
Date of Encounter: 03/17/17 Time of Encounter: 12:34 Ms. Simmons is a 47 year old female with Hx of previous CVA, HTN, seizure, present to ER for left side weakness since monday night (2 days ago). Pt said since monday, she started to feel weakness on both left arm and leg. On Monday she cannot move either left arm or left leg at all. Pt also c/o numbness on left side. No tingling. Pt denies headache, slurred speech, or choking/cough on eating. Pt apparently passed the window of tPA treatment when she got to ER. CT scan shows Right frontal and probably parietal lobes acute/subacute infarct. Pt was admitted for CVA on 03/15 Patient was admitted for acute stroke, she presented was 2 days of left-sided weakness. Not a candidate for TPA . Patient is doing okay, she passed a swallow evaluation on a daily diet. PT and OT recommended inpatient rehabilitation. Her weakness is improving. neurology is consulted. Continue Aspirin 81mg and plavix 75mg daily. Continue statin therapy. ok to discharge Patient to follow up in neurology clinic with me 2-3 weeks after discharge. Elected knee surgery would have to be postponed at least few months due to new CVA. patient is medically stable for discharge
[2017-03-17 14:50] VITALS: BP 158/102
--- NOTE | 2017-03-17 15:16 | Discharge Summary ---
Date of Encounter: 03/17/17 Time of Encounter: 15:11 - Discharge Diagnosis (1) CVA (cerebral vascular accident) Priority: Primary Status: Acute Qualifiers: CVA mechanism: occlusion Precerebral and cerebral artery: carotid artery Laterality of affected vessel: right Qualified Code(s): I63.231 - Cerebral infarction due to unspecified occlusion or stenosis of right carotid arteries (2) Alcohol abuse Priority: Secondary Status: Chronic (3) UTI (urinary tract infection) Priority: Secondary Status: Resolved Qualifiers: Urinary tract infection type: acute cystitis Hematuria presence: with hematuria Qualified Code(s): N30.01 - Acute cystitis with hematuria (4) Bipolar 1 disorder, depressed Priority: Secondary Status: Chronic (5) Seizure Priority: Secondary Status: Chronic (6) Hypokalemia due to inadequate potassium intake Priority: Secondary Status: Resolved (7) Tobacco abuse Priority: Secondary Status: Chronic - Discharge Medications Home Medications: RisperiDONE [RisperDAL] 2 mg PO HS 12/22/14 [History] Citalopram Hydrobromide [Celexa] 40 mg PO DAILY 12/08/16 [History] DiphenhydraMINE [Benadryl] 50 mg PO HS 12/08/16 [History] HydrOXYzine Pamoate [Vistaril] 50 mg PO TID PRN 12/08/16 [History] Tizanidine HCl 4 mg PO Q8H PRN 12/08/16 [History] Trazodone HCl 150 - 300 mg PO HS PRN 12/08/16 [History] lamoTRIgine [Lamictal Xr] 200 mg PO DAILY 12/08/16 [History] Metoprolol XL (24 HR) Succ [Toprol Xl] 25 mg PO DAILY #30 tab.er.24h 12/09/16 [ Rx] Gabapentin [Neurontin] 300 mg PO TID 12/19/16 [History] Aspirin 81 mg PO DAILY #30 tab.chew 12/21/16 [Rx] Clopidogrel [Plavix] 75 mg PO DAILY #30 tablet 12/21/16 [Rx] Cyanocobalamin (B-12) [Vitamin B12] 1,000 mcg PO DAILY #30 tablet 12/21/16 [Rx] Folic Acid 1 mg PO DAILY #30 tablet 12/21/16 [Rx] LevETIRAcetam [Keppra] 500 mg PO BID #60 tablet 01/24/17 [Rx] Atorvastatin [Lipitor] 40 mg PO HS tablet 03/17/17 [Rx] Thiamine (B-1) [Vitamin B-1] 100 mg PO DAILY tablet 03/17/17 [Rx] Vitamin B Complex/Vit C/Vit E [Stresstab] 1 each PO DAILY tablet 03/17/17 [Rx] Allergies/Adverse Reactions: 3 Allergy/AdvReac Type Severity Reaction Status Date / Time No Known Allergies Allergy Verified 12/22/14 18:27 Date of admission: 03/14/17 22:37 Primary care physician: Duong Tejada MD Consults: 03/14/17 23:30 Consult to Nutrition [CONS] Routine Comment: Consulting Provider: NUTRITION Reason for Dietary Consult: Diet Education Discharging clinician: Yaa Upton - Patient Status Disposition: Transfer SNF Condition: Fair Functional capacity at discharge: uses cane/walker - Discharge Instructions Follow Up With: Duong Tejada MD [Primary Care Provider] - (SENT WEB REQUEST ON 03-15-17 @ 0848) - Diet and Activity Diet: low fat, low cholesterol Interval History: Ms. Simmons is a 47 year old female with Hx of previous CVA, HTN, seizure, present to ER for left side weakness since monday night (2 days ago). Pt said since monday, she started to feel weakness on both left arm and leg. On Monday she cannot move either left arm or left leg at all. Pt also c/o numbness on left side. No tingling. Pt denies headache, slurred speech, or choking/cough on eating. Pt apparently passed the window of tPA treatment when she got to ER. CT scan shows Right frontal and probably parietal lobes acute/subacute infarct. Pt was admitted for CVA on 03/15 Patient was admitted for acute stroke, she presented was 2 days of left-sided weakness. Not a candidate for TPA . Patient is doing okay, she passed a swallow evaluation on a daily diet. PT and OT recommended inpatient rehabilitation. Her weakness is improving Hospital course: Ms. Simmons is a 47 year old female with Hx of previous CVA, HTN, seizure, present to ER for left side weakness since monday night (2 days ago). Pt said since monday, she started to feel weakness on both left arm and leg. On Monday she cannot move either left arm or left leg at all. Pt also c/o numbness on left side. No tingling. Pt denies headache, slurred speech, or choking/cough on eating. Pt apparently passed the window of tPA treatment when she got to ER. CT scan shows Right frontal and probably parietal lobes acute/subacute infarct. Pt was admitted for CVA on 03/15 Patient was admitted for acute stroke, she presented was 2 days of left-sided weakness. Not a candidate for TPA . Patient is doing okay, she passed a swallow evaluation on a daily diet. PT and OT recommended inpatient rehabilitation. Her weakness is improving. neurology is consulted. Continue Aspirin 81mg and plavix 75mg daily. Continue statin therapy. ok to discharge Patient to follow up in neurology clinic with me 2-3 weeks after discharge. Elected knee surgery would have to be postponed at least few months due to new CVA. patient is medically stable for discharge Time spent discussing smoking cessation with patient: more than 10 minutes - Time Spent with Patient Total time spent providing and/or coordinating discharge services: Greater than 30 minutes - Constitutional Vitals: Temp Pulse Resp BP Pulse Ox 98.4 F 98 14 158/102 96 03/17/17 14:46 03/17/17 14:46 03/17/17 14:46 03/17/17 14:46 03/17/17 14:46 General appearance: Present: A&O X 3, no acute distress, answers questions appropriately Exam: CONSTITUTIONAL: patient appears as an age appropriate female in no acute distress. EYES Clear sclerae, bilateral pupils are equal, reactive to light. EMOI. RESPIRATORY: No accessory muscle use, bilateral clear to auscultation, no wheezing, no crackles/rales. CARDIOVASCULAR: Regular heart rate, normal S1 and S2, no murmurs GASTROINTESTINAL: bowel sounds present, soft, no tenderness. MUSCULOSKELETAL: Joints in normal range of motion, no clubbing, no edema, no cyanosis. Bilateral peripheral pulses 2+. NEUROLOGIC: CN II to XII are grossly intact, no focal neurological deficit. - VTE Documentation of Mechanical Device: Intermittent pneumatic compression device
--- NOTE | 2017-03-17 15:32 | Physician Discharge Referral ---
ExtendedCare Referral Info Transfer To: SNF Provider in Charge: in facility Provider in Charge after Transfer: PCP Institutional Level of Care: Skilled - Diagnosis (1) CVA (cerebral vascular accident) Priority: Primary Status: Acute (2) Alcohol abuse Priority: Secondary Status: Chronic (3) UTI (urinary tract infection) Priority: Secondary Status: Resolved (4) Bipolar 1 disorder, depressed Priority: Secondary Status: Chronic (5) Seizure Priority: Secondary Status: Chronic (6) Hypokalemia due to inadequate potassium intake Priority: Secondary Status: Resolved (7) Tobacco abuse Priority: Secondary Status: Chronic Prognosis: Fair - Transfer Medications Prescriptions: Levofloxacin [Levaquin] 500 mg PO DAILY 7 Days #7 tablet Home Medications: RisperiDONE [RisperDAL] 2 mg PO HS 12/22/14 [History] Citalopram Hydrobromide [Celexa] 40 mg PO DAILY 12/08/16 [History] DiphenhydraMINE [Benadryl] 50 mg PO HS 12/08/16 [History] HydrOXYzine Pamoate [Vistaril] 50 mg PO TID PRN 12/08/16 [History] Tizanidine HCl 4 mg PO Q8H PRN 12/08/16 [History] Trazodone HCl 150 - 300 mg PO HS PRN 12/08/16 [History] lamoTRIgine [Lamictal Xr] 200 mg PO DAILY 12/08/16 [History] Metoprolol XL (24 HR) Succ [Toprol Xl] 25 mg PO DAILY #30 tab.er.24h 12/09/16 [ Rx] Gabapentin [Neurontin] 300 mg PO TID 12/19/16 [History] Aspirin 81 mg PO DAILY #30 tab.chew 12/21/16 [Rx] Clopidogrel [Plavix] 75 mg PO DAILY #30 tablet 12/21/16 [Rx] Cyanocobalamin (B-12) [Vitamin B12] 1,000 mcg PO DAILY #30 tablet 12/21/16 [Rx] Folic Acid 1 mg PO DAILY #30 tablet 12/21/16 [Rx] LevETIRAcetam [Keppra] 500 mg PO BID #60 tablet 01/24/17 [Rx] Atorvastatin [Lipitor] 40 mg PO HS tablet 03/17/17 [Rx] Levofloxacin [Levaquin] 500 mg PO DAILY 7 Days #7 tablet 03/17/17 [Rx] Thiamine (B-1) [Vitamin B-1] 100 mg PO DAILY tablet 03/17/17 [Rx] Vitamin B Complex/Vit C/Vit E [Stresstab] 1 each PO DAILY tablet 03/17/17 [Rx] Allergies/Adverse Reactions: 3 Allergy/AdvReac Type Severity Reaction Status Date / Time No Known Allergies Allergy Verified 12/22/14 18:27 - Respiratory Orders None Smoking Cessation: Smoking cessation has been advised. For more information, call the [place] Tobacco Quit Line at 0-550-IQEP-NOW. - Rehabiliation Orders Rehab Potential: Good - Diet Orders Regular CERTIFICATION: I certify that the transfer of the above named patient to an Extended Care Facility is necessary for the continuing treatment of the diagnosis listed. The above information is true and accurate reflection of patient's current condition. Confidential - Redisclosure prohibited without a patient's written consent.
== END 2017-03-17 18:10 | DRG 65 ==
LOC: EMEROO 18:27 → 2NNU 22:37 → SUATTDRO 22:37 → 2NNU 22:50 → 2NENU 03-16 15:31
PROVIDERS: ADMIT Internal Medicine; ATTEND Hospitalist

== ENCOUNTER 2017-04-21 11:40 | Observation (INO) ==
--- NOTE | 2017-04-21 12:08 | Emergency Department Note ---
Disposition Clinical Impression: EKG abnormalities, Unable to walk Disposition: Admitted As Inpatient Condition: Good General Adult HPI - General Chief complaint: ED Extremity Injury, Lower Stated complaint: left knee injury Time Seen by Provider: 04/21/17 11:42 Source: patient, EMS Limitations: no limitations Nursing Notes Reviewed: Yes Vital Signs Reviewed: Yes - History of Present Illness HPI Narrative: Patient with history of 2 previous strokes. One in November and one in February. Patient had diagnosed ACL tear with no repair secondary to stroke. The patient fell on this tear during her last stroke. The patient has been at home being taken care of by her son who performs all of her tasks including changing her diaper. The patient did try to get herself to a bedside commode today where she fell onto the left knee causing which she describes as "excruciating pain". The patient states that her current situation is not doable. Her mother was also previously helped her has recently been diagnosed with cancer and is not able to left. The patient overall complains of left knee pain. X- ray will be performed. Patient has been seen by social work and will attempted to have placement. If unable to place in the emergency department she may meet may need to be admitted for further evaluation, treatment, placement. Pain Scale: 10 - Related Data Home Medications Medication Instructions Recorded Confirmed RisperiDONE [RisperDAL] 2 mg PO HS 12/22/14 04/21/17 Citalopram Hydrobromide [Celexa] 40 mg PO DAILY 12/08/16 04/21/17 DiphenhydraMINE [Benadryl] 50 mg PO HS 12/08/16 04/21/17 HydrOXYzine Pamoate [Vistaril] 50 mg PO TID PRN 12/08/16 04/21/17 Tizanidine HCl 4 mg PO Q8H PRN 12/08/16 04/21/17 Trazodone HCl 150 - 300 mg PO HS PRN 12/08/16 04/21/17 lamoTRIgine [Lamictal Xr] 200 mg PO DAILY 12/08/16 04/21/17 Gabapentin [Neurontin] 300 mg PO TID 12/19/16 04/21/17 Previous Rx's Medication Instructions Recorded Metoprolol XL (24 HR) Succ [Toprol 25 mg PO DAILY #30 tab.er.24h 12/09/16 Xl] Aspirin 81 mg PO DAILY #30 tab.chew 12/21/16 Clopidogrel [Plavix] 75 mg PO DAILY #30 tablet 12/21/16 Cyanocobalamin (B-12) [Vitamin B12] 1,000 mcg PO DAILY #30 tablet 12/21/16 Folic Acid 1 mg PO DAILY #30 tablet 12/21/16 LevETIRAcetam [Keppra] 500 mg PO BID #60 tablet 01/24/17 Atorvastatin [Lipitor] 40 mg PO HS tablet 03/17/17 Levofloxacin [Levaquin] 500 mg PO DAILY 7 Days #7 tablet 03/17/17 Thiamine (B-1) [Vitamin B-1] 100 mg PO DAILY tablet 03/17/17 Vitamin B Complex/Vit C/Vit E 1 each PO DAILY tablet 03/17/17 [Stresstab] Allergies Allergy/AdvReac Type Severity Reaction Status Date / Time No Known Allergies Allergy Verified 12/22/14 18:27 Review of Systems: CONSTITUTIONAL: No weight loss, fever, chills, weakness or fatigue. HEENT: Eyes: No visual changes. Ears, Nose, Throat: No hearing loss, difficulty talking or unable to swallow. SKIN: No rash or itching. CARDIOVASCULAR: No chest pain, chest pressure or chest discomfort. No palpitations or edema. RESPIRATORY: No shortness of breath, cough or sputum. GASTROINTESTINAL: No anorexia, nausea, vomiting or diarrhea. No abdominal pain or blood. GENITOURINARY: No burning on urination or hematuria. 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 Pain with internal rotation and palpation of medial joint line. Skin: No rash, normal skin tone Neuro: Alert and Oriented to person, place, and time; deficits to the left side including left arm 4-5 strength. Left leg throughout 5 strength. No new deficits. - General Limitations: no limitations Course - Reevaluation(s) Reevaluation #1: Patient unable to care for self at home. We will undergo further placement in the hospital. Screening labs show hypokalemia. Patient does have some EKG changes compared to previous in the anterior lateral leads. Patient will undergo further evaluation in the hospital. - Consultations Consultation #1: Discussed with hospitalist. Patient accepted for admission. Requests Ortho consult. Consultation #2: Discussed case with Dr. Rodarte press assistant. Will consult or call back if questions. Vital Signs Temperature 98.1 F 04/21/17 11:42 Pulse Rate 95 04/21/17 11:42 Respiratory Rate 16 04/21/17 11:42 Blood Pressure 149/92 04/21/17 11:42 O2 Sat by Pulse Oximetry 97 04/21/17 11:42 Temperature 98.1 F 04/21/17 11:42 Pulse Rate 88 04/21/17 13:48 Respiratory Rate 16 04/21/17 13:48 Blood Pressure 139/96 04/21/17 13:48 O2 Sat by Pulse Oximetry 96 04/21/17 13:48 Oxygen Delivery Oxygen Delivery Room Air Medical Decision Making - Lab Data Result diagrams: 04/21/17 12:41 04/21/17 12:41 Lab Results 04/21/17 04/21/17 04/21/17 Range/Units 12:41 12:41 13:58 WBC 8.2 (4.3-11.1) K/mcL RBC 4.94 (3.82-4.97) M/mcL Hgb 14.0 (11.5-15.4) g/dL Hct 43.1 (35.3-44.9) % MCV 87.2 (83.0-100.0) fL MCH 28.3 (28.0-33.3) pg MCHC 32.5 (31.6-35.5) g/dL RDW 15.8 H (11.5-14.5) % Plt Count 305 (140-400) K/mcL MPV 8.9 L (9.4-12.4) fL Immature Gran % 0.5 (0-4) % Seg Neutrophils % 64.2 % Lymphocytes % 29.0 % Monocytes % 5.9 % Eosinophils % 0.0 % Basophils % 0.4 % Neutrophils # 5.2 (1.6-8.9) K/mcL Lymphocytes # 2.4 (0.6-4.6) K/mcL Monocytes # 0.5 (0.0-1.3) K/mcL Eosinophils # 0.0 (0.0-0.6) K/mcL Basophils # 0.0 (0.0-0.2) K/mcL Sodium 139 (136-145) mEq/L Potassium 3.1 L (3.5-5.1) mEq/L Chloride 104 (98-107) mEq/L Carbon Dioxide 30 H (23-29) mEq/L BUN 5 L (6-20) mg/dL Creatinine 0.54 L (0.60-1.20) mg/dL Est GFR ( Amer) > 60 (> 60) Est GFR (Non-Af Amer) > 60 (> 60) BUN/Creatinine Ratio 9 (6-26) Glucose 86 (70-105) mg/dL Calculated Osmolality 285 (280-300) Calcium 8.9 (8.6-10.3) mg/dL Urine Color Yellow (Yellow) Urine Clarity Cloudy A (Clear) Urine pH 6.5 (5.0-8.0) pH Units Ur Specific [place] 1.010 (1.010-1.025) Urine Protein Negative (Neg-Trace) mg/dL Urine Glucose (UA) Normal (Normal) mg/dL Urine Ketones Negative (Negative) mg/dL Urine Blood Negative (Negative) Urine Nitrite Negative (Negative) Urine Bilirubin Negative (Negative) Urine Urobilinogen Normal (Normal) mg/dL Ur Leukocyte Esterase Trace H (Negative) Urine Microscopic RBC 0-3 (0-3) per hpf Urine Microscopic WBC 3-5 H (0-3) per hpf Ur Squamous Epith Cells Many H (None-Few) per lpf Urine Bacteria None Seen (None-Few) per hpf Hyaline Casts None Seen (None-Few) per lpf
--- NOTE | 2017-04-21 12:27 | Emergency Department Note ---
START Narrative - START START: I examined this patient and my medical decision-making was reviewed with the LATENT FINGERPRINT EXAMINER/PA/Advanced Practice Nurse/Resident Physician. I agree with the documented findings, disposition and treatment plan as described except to the extent set forth below. ED attending note: Patient seen with emergency medicine resident Dr. Tito Eller. We independently evaluated the patient. We independently had face-to- face contact with the patient. Please see a copy of his note for details of the history and physical, evaluation, management and disposition of this emergency Department patient. Briefly: This 47-year-old female status post several strokes has been left with deficits and weakness. Was feeling a little bit stronger, stood up up today fell injuring her left knee social services specialist heena came by to inform us that there is no family members truly home were able to take care of this patient and she will require admission. X-rays and screening labs are pending with admission anticipated. Disposition pending. Patient stable
[2017-04-21 12:48] LABS: Basophils % 0.4 %; Hematocrit 43.1 % (35.3-44.9); Immature Granulocytes % 0.5 % (0-4); Lymphocytes # 2.4 K/mcL (0.6-4.6); Mean Corpuscular HGB Conc 32.5 g/dL (31.6-35.5); Mean Corpuscular Hemoglobin 28.3 pg (28.0-33.3); Mean Corpuscular Volume 87.2 fL (83.0-100.0); Mean Platelet Volume 8.9 fL (9.4-12.4); Monocytes # 0.5 K/mcL (0.0-1.3); Monocytes % 5.9 %; Neutrophils # 5.2 K/mcL (1.6-8.9); Platelet Count 305 K/mcL (140-400); Red Blood Count 4.94 M/mcL (3.82-4.97); Red Cell Distribution Width 15.8 % (11.5-14.5); Segmented Neutrophils % 64.2 %
[2017-04-21 13:33] LABS: BUN/Creatinine Ratio 9 (6-26); Blood Urea Nitrogen 5 mg/dL (6-20); Calcium 8.9 mg/dL (8.6-10.3); Carbon Dioxide 30 mEq/L (23-29); Chloride 104 mEq/L (98-107); Glucose 86 mg/dL (70-105); Osmolality,Calculated 285 (280-300); Potassium 3.1 mEq/L (3.5-5.1); Sodium 139 mEq/L (136-145); eGFR For Non-African Americans > 60 (> 60)
[2017-04-21] MEDS ORDERED: *HR* OxyCODONE Immed Rel 5 MG TABLET PO ONE (13:50)
[2017-04-21 14:36] LABS: Bilirubin,Urine Negative (Negative); Blood,Urine Negative (Negative); Clarity,Urine Cloudy (Clear); Color,Urine Yellow (Yellow); Glucose,Urine (UA) Normal (Normal); Ketones,Urine Negative (Negative); Leukocyte Esterase,Urine Trace (Negative); Nitrite,Urine Negative (Negative); PH,Urine 6.5 pH Units (5.0-8.0); Protein,Urine Negative (Neg-Trace); Urobilinogen,Urine Normal (Normal)
[2017-04-21 14:38] LABS: Bacteria,Urine None Seen per hpf (None-Few); Hyaline Casts,Urine None Seen per lpf (None-Few); Squamous Epithelial Cell,Urine Many per lpf (None-Few)
[2017-04-21 14:47] LABS: RBC,Urine 0-3 per hpf (0-3)
[2017-04-21] MEDS ORDERED: *HR* Promethazine 25 MG/ML VIAL IVP PRN (16:45)
[2017-04-21] MEDS ORDERED: Naloxone 0.4 MG/ML INJ IVP PRN (16:45)
[2017-04-21] MEDS ORDERED: Ondansetron 4 MG/2 ML VIAL IVP PRN (16:45)
[2017-04-21] MEDS ORDERED: Acetaminophen 325 MG TABLET PO PRN (16:45)
[2017-04-21] MEDS ORDERED: Mag Hydrox/Al Hydrox/Simeth 30 ML UDC PO PRN (16:45)
[2017-04-21] MEDS ORDERED: tiZANidine 4 MG TABLET PO PRN (16:49)
[2017-04-21] MEDS ORDERED: traZODone 50 MG TABLET PO PRN (16:49)
[2017-04-21] MEDS ORDERED: hydrOXYzine pamoate 25 MG CAPSULE PO PRN (16:49)
--- NOTE | 2017-04-21 16:55 | Internal Med History&Physical ---
Date of Encounter: 04/21/17 Time of Encounter: 15:00 Assessment and Plan (1) Left knee pain Current visit: Yes Status: Acute Will place the pt into Med Surg Pt is in severe Left Knee pain Need IV analgesics Placed her on IV Fentanyl 25mg Q3hr PRN Supportive care Reviewed Knee X ray by myself - showed no effusion, no fractures noticed Ortho was consulted by ER for further eval Use knee brace for now Qualifiers: Chronicity: acute Qualified Code(s): M25.562 - Pain in left knee (2) Injury of anterior cruciate ligament Current visit: Yes Status: Acute Ortho eval Qualifiers: Qualified Code(s): S89.82XD - Other specified injuries of left lower leg, subsequent encounter (3) Ambulatory dysfunction Current visit: Yes Status: Acute PT / OT eval may need rehab placement for short term PT / OT (4) History of CVA (cerebrovascular accident) Current visit: No Status: Acute Resumed home meds ASA + Plavix Cont statin (5) Multiple falls Current visit: No Status: Acute (6) Seizure Current visit: No Status: Chronic resumed home meds (7) Tobacco abuse Current visit: No Status: Chronic counseled to quit on nicotine patch Internal Medicine - H&P: HPI Chief complaint: Left knee pain / Falls Admitted From: Emergency Dept Plans for Post Hospital Care: Home History of present illness: Ms. Simmons is a 47 year old female with Hx of HTN, seizure, recent CVA with Left residual paralysis pt who has chronic Left knee pain with possible ACL injury, following with Ortho now she presented to ER with a fall and severe left knee pain. Pt was not able to care for herself at home with her recent CVA and Left side weakness. Her pain in Left knee was so excruciating, slightly better with pain medication here. She denied any CP / SOB Past Med Surg Social Fam HX - Past Medical History Medical history: CVA, liver disease, other Psychiatric history: anxiety, bipolar, depression, other - Past Surgical History Surgical History: - Social History Smoking Status: Current every day smoker Packs per day: 1.5 pack Smokeless Tobacco Status: No Alcohol use: heavy Drug use: marijuana - Family History Grandmother Family Member Ethnicity: Non- Living Status: Hx Family Cardiac Disorders: Yes (Stroke) Hx Family Neuromuscular Disorders: Yes (CVA) Hx Family Neurologic Disorders: Yes (Stroke) Father History Unknown: Yes Family Member Ethnicity: Non- Living Status: Still Living Mother Adopted: No Family Member Ethnicity: Unknown Living Status: Still Living Hx Family Cardiac Disorders: Yes (CAD) Hx Family Respiratory Disorders: Yes (COPD) Hx Family Cancer: No Hx Family GI Disorders: No Hx Family Endocrine Disorder: No Hx Family Neuromuscular Disorders: No Hx Family Neurologic Disorders: No Hx Family HEENT Disorders: No Hx Family Autoimmune Disorders: No Internal Medicine - H&P: Meds RisperiDONE [RisperDAL] 2 mg PO HS 12/22/14 [History] Citalopram Hydrobromide [Celexa] 40 mg PO DAILY 12/08/16 [History] DiphenhydraMINE [Benadryl] 50 mg PO HS 12/08/16 [History] HydrOXYzine Pamoate [Vistaril] 50 mg PO TID PRN 12/08/16 [History] Tizanidine HCl 4 mg PO Q8H PRN 12/08/16 [History] Trazodone HCl 150 - 300 mg PO HS PRN 12/08/16 [History] lamoTRIgine [Lamictal Xr] 200 mg PO DAILY 12/08/16 [History] Metoprolol XL (24 HR) Succ [Toprol Xl] 25 mg PO DAILY #30 tab.er.24h 12/09/16 [ Rx] Gabapentin [Neurontin] 300 mg PO TID 12/19/16 [History] Aspirin 81 mg PO DAILY #30 tab.chew 12/21/16 [Rx] Clopidogrel [Plavix] 75 mg PO DAILY #30 tablet 12/21/16 [Rx] Cyanocobalamin (B-12) [Vitamin B12] 1,000 mcg PO DAILY #30 tablet 12/21/16 [Rx] Folic Acid 1 mg PO DAILY #30 tablet 12/21/16 [Rx] LevETIRAcetam [Keppra] 500 mg PO BID #60 tablet 01/24/17 [Rx] Atorvastatin [Lipitor] 40 mg PO HS tablet 03/17/17 [Rx] Levofloxacin [Levaquin] 500 mg PO DAILY 7 Days #7 tablet 03/17/17 [Rx] Thiamine (B-1) [Vitamin B-1] 100 mg PO DAILY tablet 03/17/17 [Rx] Vitamin B Complex/Vit C/Vit E [Stresstab] 1 each PO DAILY tablet 03/17/17 [Rx] 3 Allergy/AdvReac Type Severity Reaction Status Date / Time No Known Allergies Allergy Verified 12/22/14 18:27 All Systems PM: A 10-system review of systems was performed and is negative for pertinent findings except as documented above in the HPI. Review of systems: All the systems are reviewed everything is benign except the systems and symptoms I mentioned in the history of present illness - Constitutional Vitals: Temp Pulse Resp BP Pulse Ox 98.1 F 92 16 156/112 96 04/21/17 15:09 04/21/17 15:09 04/21/17 15:09 04/21/17 15:09 04/21/17 15:09 General appearance: Present: mild distress (with pain), A&O X 3, answers questions appropriately. Absent: no acute distress - Head Head exam: Present: atraumatic, normal inspection - Neck Neck exam general surgery: Present: supple - Respiratory Respiratory exam: Present: decreased breath sounds. Absent: rales, respiratory distress, rhonchi, wheezes - Cardiovascular Cardiovascular exam: Present: RRR, +S1, +S2. Absent: tachycardia - GI/Abdominal GI/Abdominal exam: Present: normal bowel sounds, soft. Absent: guarding, rebound, rigid, tenderness - Extremities Exam Extremities exam: Present: pedal edema (Left leg), tenderness (severe tenderness in Left knee). Absent: calf tenderness Additional comments: moderate left knee swelling / effusion noticed. No sings of septic arthritis / cellulites noticed - Back Exam Back exam: Absent: CVA tenderness (L), CVA tenderness (R) - Neurological Exam Neurological exam: Present: alert, oriented X3 - Psychiatric Psychiatric exam: Present: normal affect, normal mood - Skin Skin exam: Absent: rash Internal Med - H&P Results - Labs CBC & Chem 7: 04/21/17 12:41 04/21/17 12:41
[2017-04-21] MEDS ORDERED: *HR* FentaNYL (PF) 100 MCG/2 ML VIAL IVP PRN (17:05)
--- NOTE | 2017-04-21 17:48 | Electrocardiograph Report ---
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
[2017-04-21] MEDS: Nicotine 21 MG PATCH.TD24 TD SCH (18:45)
[2017-04-21] MEDS: *HR* HYDROcodone/Acet 5/325 mg TABLET PO PRN (18:49)
[2017-04-21] MEDS: levETIRAcetam 250 MG TABLET PO SCH (21:10)
[2017-04-21] MEDS: risperiDONE 1 MG TABLET PO SCH (21:11)
[2017-04-21] MEDS: Gabapentin 300 MG CAPSULE PO SCH (21:11)
[2017-04-22] MEDS: *HR* HYDROcodone/Acet 5/325 mg TABLET PO PRN ×4 (03:17→20:10)
[2017-04-22] MEDS: Folic Acid 1 MG TABLET PO SCH (08:53)
[2017-04-22] MEDS: Vitamin B Complex/Vit C/Vit E 1 EACH TABLET PO SCH (08:53)
[2017-04-22] MEDS: levETIRAcetam 250 MG TABLET PO SCH ×2 (08:53→21:10)
[2017-04-22] MEDS: Thiamine (B-1) 100 MG TABLET PO SCH (08:53)
[2017-04-22] MEDS: Aspirin 81 MG TAB.CHEW PO SCH (08:53)
[2017-04-22] MEDS: Metoprolol XL (24 HR) Succ 25 MG TAB.ER.24H PO SCH (08:53)
[2017-04-22] MEDS: Gabapentin 300 MG CAPSULE PO SCH ×3 (08:53→21:10)
[2017-04-22] MEDS: Cyanocobalamin (B-12) 1,000 MCG TABLET PO SCH (08:53)
[2017-04-22] MEDS: Nicotine 21 MG PATCH.TD24 TD SCH (13:23)
[2017-04-22] MEDS: LAMOTRIGINE 200 MG PO SCH (13:24)
--- NOTE | 2017-04-22 15:02 | Orthopedic Consult Note ---
Date of Encounter: 04/22/17 Time of Encounter: 14:50 History of Present Illness Chief complaint: Left knee pain HPI: Ms. Simmons is a 47 year old female who states that she has had progressive left knee pain since November or December of last year after a fall. Patient states that the knee was fine until that episode. She has been seen and treated by Dr. Phillips, an ACL brace was recently fitted. Patient states that this has given her some improvement sense of stability. The patient however states that the knee pain is getting progressively worse and just recently she has been in intractable pain and has been unable to ambulate. She normally has been using a walker due to a recent CVA with residual left-sided weakness. The patient apparently had CVAs in the earlier part of this year and had been resolving. She was initially in a custodial facility but has been home for several weeks but the current left knee pain has limited her ability to be at home. She is admitted with intractable left knee pain. I was able to review the patient's previous surgical history. She had undergone a left ACL reconstruction in March 1997. Unfortunately she had a postoperative infection that required 2 arthroscopic washouts. About a year and a half later the patient underwent an attempted tightening procedure for ACL with the then fashionable ArthroWand. Patient states that she really has not had problems with the knee until the current episode. I did review the patient's complete medical record including her history and physical examination and lab studies and imaging studies. Pertinent orthopedic examination reveals excellent range of motion of the left knee. There is a well-healed anterior midline incision from the patella distal. There is also an incision along the medial thigh. There is a positive Lockman sign and a positive +1-2 anterior drawer sign. Tenderness is noted along the medial joint line. There is additionally some popliteal tenderness. Minimal to trace effusion is noted. I reviewed a nonweightbearing x-ray of the left knee performed on 2317. This reveals the interference screws in both femoral and tibial tunnel. No problems or concerning findings are noted there. There is advanced tricompartmental arthritis manifested by spurring, marked medial narrowing in spite of the nonweightbearing status is seen. I also reviewed an MRI of the knee from . There is some difficulty with interpretation in some areas due to the metal interference screws. There is a rather large effusion at that time. There was a large posterior Ruano cyst with what appears to be leakage of fluid. I do not identify an ACL graft. PCL appears intact. The menisci are somewhat diminutive suggesting prior meniscectomy. Impression: Posttraumatic arthritis left knee, chronic failed ACL graft Recommendation: I discussed with the patient that no intervention is absolutely required. She does have treatment options. This would include simple observation, use of anti-inflammatory or other pain medications, utilizing the brace as fitted or possibly surgical intervention though she is not a candidate for any surgery with her current medical status. As far surgery would be concerned if and when she is able, I would not recommend even considering a revision ACL reconstruction as it would not address the severe arthritis identified. That would be addressed only by knee replacement surgery. The patient is going to consider the options. She would like to resume some therapy which I think is absolutely essential to her recovery. Her only limitations would be pain mediated. Thank you very much for allowing me to see care for Mrs. Simmons. Sincerely, Flako Rodarte,DO Past Med Surg Social Fam HX - Past Medical History Medical history: CVA, liver disease, other Psychiatric history: anxiety, bipolar, depression, other - Past Surgical History Surgical History: - Social History Smoking Status: Current every day smoker Packs per day: 1.5 pack Smokeless Tobacco Status: No Alcohol use: heavy Drug use: marijuana - Family History Grandmother Family Member Ethnicity: Non- Living Status: Hx Family Cardiac Disorders: Yes (Stroke) Hx Family Neuromuscular Disorders: Yes (CVA) Hx Family Neurologic Disorders: Yes (Stroke) Father History Unknown: Yes Family Member Ethnicity: Non- Living Status: Still Living Mother Adopted: No Family Member Ethnicity: Unknown Living Status: Still Living Hx Family Cardiac Disorders: Yes (CAD) Hx Family Respiratory Disorders: Yes (COPD) Hx Family Cancer: No Hx Family GI Disorders: No Hx Family Endocrine Disorder: No Hx Family Neuromuscular Disorders: No Hx Family Neurologic Disorders: No Hx Family HEENT Disorders: No Hx Family Autoimmune Disorders: No Medications and Allergies RisperiDONE [RisperDAL] 2 mg PO HS 12/22/14 [History] Citalopram Hydrobromide [Celexa] 40 mg PO DAILY 12/08/16 [History] DiphenhydraMINE [Benadryl] 50 mg PO HS 12/08/16 [History] HydrOXYzine Pamoate [Vistaril] 50 mg PO TID PRN 12/08/16 [History] Tizanidine HCl 4 mg PO Q8H PRN 12/08/16 [History] Trazodone HCl 150 - 300 mg PO HS PRN 12/08/16 [History] lamoTRIgine [Lamictal Xr] 200 mg PO DAILY 12/08/16 [History] Metoprolol XL (24 HR) Succ [Toprol Xl] 25 mg PO DAILY #30 tab.er.24h 12/09/16 [ Rx] Gabapentin [Neurontin] 300 mg PO TID 12/19/16 [History] Aspirin 81 mg PO DAILY #30 tab.chew 12/21/16 [Rx] Clopidogrel [Plavix] 75 mg PO DAILY #30 tablet 12/21/16 [Rx] Cyanocobalamin (B-12) [Vitamin B12] 1,000 mcg PO DAILY #30 tablet 12/21/16 [Rx] Folic Acid 1 mg PO DAILY #30 tablet 12/21/16 [Rx] LevETIRAcetam [Keppra] 500 mg PO BID #60 tablet 01/24/17 [Rx] Atorvastatin [Lipitor] 40 mg PO HS tablet 03/17/17 [Rx] Levofloxacin [Levaquin] 500 mg PO DAILY 7 Days #7 tablet 03/17/17 [Rx] Thiamine (B-1) [Vitamin B-1] 100 mg PO DAILY tablet 03/17/17 [Rx] Vitamin B Complex/Vit C/Vit E [Stresstab] 1 each PO DAILY tablet 03/17/17 [Rx] 3 Allergy/AdvReac Type Severity Reaction Status Date / Time No Known Allergies Allergy Verified 12/22/14 18:27 All Systems Reviewed: The remainder of the systems were reviewed and are negative Physical Exam - Constitutional Vitals: Temp Pulse Resp BP Pulse Ox 98.1 F 79 16 138/91 95 04/22/17 11:43 04/22/17 11:43 04/22/17 11:43 04/22/17 11:43 04/22/17 11:43 Results - Labs Result Diagrams: 04/21/17 12:41 04/21/17 12:41 Labs: Abnormal lab results RDW 15.8 % (11.5-14.5) H 02/23/18 12:41 MPV 8.9 fL (9.4-12.4) L 04/21/17 12:41 Potassium 3.1 mEq/L (3.5-5.1) L 04/21/17 12:41 Carbon Dioxide 30 mEq/L (23-29) H 04/21/17 12:41 BUN 5 mg/dL (6-20) L 04/21/17 12:41 Creatinine 0.54 mg/dL (0.60-1.20) L 04/21/17 12:41 Urine Clarity Cloudy (Clear) A 04/21/17 13:58 Ur Leukocyte Esterase Trace (Negative) H 04/21/17 13:58 Urine Microscopic WBC 3-5 per hpf (0-3) H 04/21/17 13:58 Ur Squamous Epith Cells Many per lpf (None-Few) H 04/21/17 13:58 All other labs normal. - Diagnostic results Knee x-ray: image reviewed Knee MRI: image reviewed Consult Discharge Plan - Plan Referrals: Duong Tejada MD [Primary Care Provider] -
--- NOTE | 2017-04-22 17:23 | Internal Med Progress Note ---
Date of Encounter: 04/22/17 Time of Encounter: 17:20 - Assessment and plan (1) Ambulatory dysfunction Current Visit: Yes Status: Acute Assessment and plan: Multifactoral problems with left knee pain and previous stroke with residual weaknesses PT OT evaluation May need rehabilitation (2) History of CVA (cerebrovascular accident) Current Visit: No Status: Acute Assessment and plan: Continue aspirin and Plavix as well as statin (3) Injury of anterior cruciate ligament Current Visit: Yes Status: Acute Assessment and plan: per ortho service --Impression: Posttraumatic arthritis left knee, chronic failed ACL graft Recommendation:As per ortho- He discussed with the patient that no intervention is absolutely required. She does have treatment options. This would include simple observation, use of anti-inflammatory or other pain medications, utilizing the brace as fitted or possibly surgical intervention though she is not a candidate for any surgery with her current medical status. As far surgery would be concerned if and when she is able, I would not recommend even considering a revision ACL reconstruction as it would not address the severe arthritis identified. That would be addressed only by knee replacement surgery. The patient is going to consider the options. She would like to resume some therapy which I think is absolutely essential to her recovery. Her only limitations would be pain mediated. Will start PT/OT patient on plavix, discussed antiinflammatory with pharmacy, no contraindications and specific but need to be cautious of increased bleeding risk We will add ibuprofen 600 mg 3 times a day with food Qualifiers: Qualified Code(s): S89.82XD - Other specified injuries of left lower leg, subsequent encounter (4) Left knee pain Current Visit: Yes Status: Acute Assessment and plan: see above Qualifiers: Chronicity: acute Qualified Code(s): M25.562 - Pain in left knee (5) Multiple falls Current Visit: No Status: Acute Assessment and plan: pt/ot (6) Seizure Current Visit: No Status: Chronic Assessment and plan: Seizure precautions and continue home medications (7) Tobacco abuse Current Visit: No Status: Chronic Assessment and plan: Cessation education nicoderm patch - Subjective Interval history: Patient states she cannot walk secondary to her previous stroke and excruciating left knee pain. The Ortho service saw the patient and made recommendations which she is thinking about. She is not a surgical candidate. She denies chest pain, shortness of breath nausea, abdominal pain, changes in bladder or bowel function or headache. - Constitutional Vitals: Temp Pulse Resp BP Pulse Ox 98.1 F 72 16 122/85 94 04/22/17 15:43 04/22/17 15:43 04/22/17 15:43 04/22/17 15:43 04/22/17 15:43 General appearance: Present: cooperative, A&O X 3, pleasant, no acute distress, answers questions appropriately - Head Head exam: Present: atraumatic, normocephalic - Eye Eye exam: Present: PERRL, conjuntiva pink, sclera anicteric Pupils: Present: PERRL - Neck Neck exam general surgery: Present: supple, trachea midline. Absent: lymphadenopathy - Respiratory Respiratory exam: Present: CTAB. Absent: accessory muscle use, rales, rhonchi, wheezes - Cardiovascular Cardiovascular exam: Present: RRR, +S1, +S2. Absent: diastolic murmur, gallop, rubs, systolic murmur - GI/Abdominal GI/Abdominal exam: Present: normal bowel sounds, soft, no peritoneal signs. Absent: distended, tenderness - Extremities Exam Extremities exam: Present: joint swelling, pedal edema, tenderness, warm, radial pulses palpable and symmetrical. Absent: calf tenderness, cyanotic, full ROM - Neurological Exam Neurological exam: Present: CN II-XII intact, oriented X3, no focal deficits. Absent: pronater drift, facial droop, speech deficit - Skin Skin exam: Present: dry, intact, normal color, warm Internal Medicine: Result - Labs CBC & Chem 7: 04/21/17 12:41 04/21/17 12:41 Consult Discharge Plan - Plan Referrals: Duong Tejada MD [Primary Care Provider] -
[2017-04-22] MEDS ORDERED: Ibuprofen 600 MG TABLET PO PRN (17:42)
[2017-04-22] MEDS: risperiDONE 1 MG TABLET PO SCH (21:10)
[2017-04-23] MEDS: Aspirin 81 MG TAB.CHEW PO SCH (07:46)
[2017-04-23] MEDS: Vitamin B Complex/Vit C/Vit E 1 EACH TABLET PO SCH (07:46)
[2017-04-23] MEDS: levETIRAcetam 250 MG TABLET PO SCH ×2 (07:47→21:12)
[2017-04-23] MEDS: *HR* HYDROcodone/Acet 5/325 mg TABLET PO PRN ×3 (07:47→21:12)
[2017-04-23] MEDS: Thiamine (B-1) 100 MG TABLET PO SCH (07:47)
[2017-04-23] MEDS: Metoprolol XL (24 HR) Succ 25 MG TAB.ER.24H PO SCH (07:47)
[2017-04-23] MEDS: Folic Acid 1 MG TABLET PO SCH (07:47)
[2017-04-23] MEDS: Cyanocobalamin (B-12) 1,000 MCG TABLET PO SCH (07:47)
[2017-04-23] MEDS: Gabapentin 300 MG CAPSULE PO SCH ×3 (07:47→21:12)
[2017-04-23] MEDS: Nicotine 21 MG PATCH.TD24 TD SCH (10:51)
[2017-04-23] MEDS: LAMOTRIGINE 200 MG PO SCH (13:59)
--- NOTE | 2017-04-23 15:05 | Internal Med Progress Note ---
Date of Encounter: 04/23/17 Time of Encounter: 15:03 - Assessment and plan (1) Ambulatory dysfunction Current Visit: Yes Status: Acute Assessment and plan: Multifactoral problems with left knee pain and previous stroke with residual weaknesses PT OT evaluation Awaiting placement plan from [facility] (2) History of CVA (cerebrovascular accident) Current Visit: No Status: Acute Assessment and plan: Continue aspirin, Plavix as well as statin (3) Injury of anterior cruciate ligament Current Visit: Yes Status: Acute Assessment and plan: per ortho service --Impression: Posttraumatic arthritis left knee, chronic failed ACL graft Recommendation:As per ortho- He discussed with the patient that no intervention is absolutely required. She does have treatment options. This would include simple observation, use of anti-inflammatory or other pain medications, utilizing the brace as fitted or possibly surgical intervention though she is not a candidate for any surgery with her current medical status. As far surgery would be concerned if and when she is able, I would not recommend even considering a revision ACL reconstruction as it would not address the severe arthritis identified. That would be addressed only by knee replacement surgery. The patient is going to consider the options. She would like to resume some therapy which I think is absolutely essential to her recovery. Her only limitations would be pain mediated. PT/OT with no weight restrictions per ortho Patient on plavix, discussed antiinflammatory with pharmacy, no contraindications per consultation with pharmacy, but need to be cautious of increased bleeding risk Continue ibuprofen 600 mg 3 times a day with food Qualifiers: Qualified Code(s): S89.82XD - Other specified injuries of left lower leg, subsequent encounter (4) Left knee pain Current Visit: Yes Status: Acute Assessment and plan: see plan above Qualifiers: Chronicity: acute Qualified Code(s): M25.562 - Pain in left knee (5) Multiple falls Current Visit: No Status: Acute Assessment and plan: PT OT (6) Seizure Current Visit: No Status: Chronic Assessment and plan: Seizure precautions, continue home medications (7) Tobacco abuse Current Visit: No Status: Chronic Assessment and plan: Cessation education and cont nicoderm patch - Subjective Interval history: Patient states she cannot walk secondary to her previous stroke and left knee pain. The Ortho service saw the patient and made recommendations which she is thinking about. She is not a surgical candidate. She denies chest pain, shortness of breath nausea, abdominal pain, changes in bladder or bowel function , fever, chills, or headache. She is waiting for word from [facility] regarding placement. They have been feeling some paper out work out for her. Her pain is a little better in her knee on the anti-inflammatory. - Constitutional Vitals: Temp Pulse Resp BP Pulse Ox 98.9 F 77 14 134/87 96 04/23/17 11:20 04/23/17 11:20 04/23/17 11:20 04/23/17 11:20 04/23/17 11:20 General appearance: Present: cooperative, A&O X 3, pleasant, obese, answers questions appropriately - Head Head exam: Present: atraumatic, normocephalic - Eye Eye exam: Present: PERRL, conjuntiva pink, sclera anicteric Pupils: Present: PERRL - Neck Neck exam general surgery: Present: supple, trachea midline. Absent: lymphadenopathy - Respiratory Respiratory exam: Present: CTAB. Absent: accessory muscle use, rales, rhonchi, wheezes - Cardiovascular Cardiovascular exam: Present: RRR, +S1, +S2. Absent: diastolic murmur, gallop, rubs, systolic murmur - GI/Abdominal GI/Abdominal exam: Present: normal bowel sounds, soft, no peritoneal signs. Absent: distended, tenderness Additional comments: yeast skinfolds - Extremities Exam Extremities exam: Present: pedal edema, tenderness, warm, radial pulses palpable and symmetrical. Absent: calf tenderness, cyanotic - Neurological Exam Neurological exam: Present: alert, CN II-XII intact, oriented X3, no focal deficits. Absent: strengths equal and symetr throughout, pronater drift, facial droop, speech deficit - Skin Skin exam: Present: dry, warm Internal Medicine: Result - Labs CBC & Chem 7: 04/21/17 12:41 04/21/17 12:41 Consult Discharge Plan - Plan Referrals: Duong Tejada MD [Primary Care Provider] -
[2017-04-23] MEDS: Nystatin POWDER 30 GM BOTTLE TP SCH ×2 (15:33→21:13)
[2017-04-23] MEDS: risperiDONE 1 MG TABLET PO SCH (21:12)
[2017-04-24] MEDS: Thiamine (B-1) 100 MG TABLET PO SCH (08:35)
[2017-04-24] MEDS: Cyanocobalamin (B-12) 1,000 MCG TABLET PO SCH (08:35)
[2017-04-24] MEDS: Gabapentin 300 MG CAPSULE PO SCH ×3 (08:36→21:11)
[2017-04-24] MEDS: Folic Acid 1 MG TABLET PO SCH (08:36)
[2017-04-24] MEDS: Nicotine 21 MG PATCH.TD24 TD SCH (08:36)
[2017-04-24] MEDS: levETIRAcetam 250 MG TABLET PO SCH ×2 (08:36→21:11)
[2017-04-24] MEDS: Aspirin 81 MG TAB.CHEW PO SCH (08:36)
[2017-04-24] MEDS: Metoprolol XL (24 HR) Succ 25 MG TAB.ER.24H PO SCH (08:36)
[2017-04-24] MEDS: Vitamin B Complex/Vit C/Vit E 1 EACH TABLET PO SCH (08:36)
[2017-04-24] MEDS: *HR* HYDROcodone/Acet 5/325 mg TABLET PO PRN ×3 (08:39→21:19)
[2017-04-24] MEDS: Nystatin POWDER 30 GM BOTTLE TP SCH ×2 (08:40→21:32)
[2017-04-24] MEDS: LAMOTRIGINE 200 MG PO SCH (08:40)
--- NOTE | 2017-04-24 18:46 | Internal Med Progress Note ---
Date of Encounter: 04/24/17 Time of Encounter: 18:43 - Assessment and plan (1) Injury of anterior cruciate ligament Current Visit: Yes Status: Acute Assessment and plan: Posttraumatic arthritis left knee, chronic failed ACL graft Recommendation:As per ortho- He discussed with the patient that no intervention is absolutely required. She does have treatment options. This would include simple observation, use of anti-inflammatory or other pain medications, utilizing the brace as fitted or possibly surgical intervention though she is not a candidate for any surgery with her current medical status. As far surgery would be concerned if and when she is able, I would not recommend even considering a revision ACL reconstruction as it would not address the severe arthritis identified. That would be addressed only by knee replacement surgery. The patient is going to consider the options. She would like to resume some therapy which I think is absolutely essential to her recovery. Her only limitations would be pain mediated. PT/OT with no weight restrictions per ortho Continue ibuprofen 600 mg 3 times a day with food, elevate SNF placement. Qualifiers: Qualified Code(s): S89.82XD - Other specified injuries of left lower leg, subsequent encounter (2) Ambulatory dysfunction Current Visit: Yes Status: Acute Assessment and plan: Due to left knee pain and ACL injury. (3) Hypokalemia Current Visit: No Status: Acute Assessment and plan: Potassium was 3.1 which is being replaced. (4) Seizure Current Visit: No Status: Chronic Assessment and plan: No recent seizures. Seizure precautions, continue home medications - Time Spent With Patient Greater than 35 minutes - Subjective Interval history: She was admitted with left knee pain and fall. She has problems with ACL has been evaluated by orthopedics. Did not recommend any surgical intervention at this time. Recommending physical therapy. If no improvement subsequently might need left knee joint replacement. Her pain has been managed. She is waiting for half-way placement. - Constitutional Vitals: Temp Pulse Resp BP Pulse Ox 99 F 83 15 153/97 93 04/24/17 18:34 04/24/17 18:34 04/24/17 18:34 04/24/17 18:34 04/24/17 18:34 General appearance: Present: cooperative, A&O X 3, pleasant, obese, answers questions appropriately Exam: Middle-aged female. No distress. No dyspnea orthopnea at rest. CVS S1-S2 regular. No murmur. RS: Decreased entry bilaterally no crepitations or rhonchi. Abdomen, obese, soft, nontender. Left knee, swollen. Tender. Extremities no edema. Internal Medicine: Result - Labs CBC & Chem 7: 04/21/17 12:41 04/21/17 12:41 Consult Discharge Plan - Plan Referrals: Duong Tejada MD [Primary Care Provider] - 04/26/17 3:15 pm ( will be the doctor who you will be seeing)
[2017-04-24] MEDS: risperiDONE 1 MG TABLET PO SCH (21:11)
[2017-04-25] MEDS: *HR* HYDROcodone/Acet 5/325 mg TABLET PO PRN ×2 (03:44→09:55)
[2017-04-25] MEDS: levETIRAcetam 250 MG TABLET PO SCH ×2 (07:45→22:37)
[2017-04-25] MEDS: Thiamine (B-1) 100 MG TABLET PO SCH (07:45)
[2017-04-25] MEDS: Folic Acid 1 MG TABLET PO SCH (07:45)
[2017-04-25] MEDS: Metoprolol XL (24 HR) Succ 25 MG TAB.ER.24H PO SCH (07:45)
[2017-04-25] MEDS: Vitamin B Complex/Vit C/Vit E 1 EACH TABLET PO SCH (07:45)
[2017-04-25] MEDS: Gabapentin 300 MG CAPSULE PO SCH ×3 (07:45→22:31)
[2017-04-25] MEDS: Cyanocobalamin (B-12) 1,000 MCG TABLET PO SCH (07:45)
[2017-04-25] MEDS: Aspirin 81 MG TAB.CHEW PO SCH (07:45)
[2017-04-25] MEDS: Nystatin POWDER 30 GM BOTTLE TP SCH ×2 (07:46→22:31)
[2017-04-25] MEDS: Nicotine 21 MG PATCH.TD24 TD SCH (07:46)
[2017-04-25] MEDS: LAMOTRIGINE 200 MG PO SCH (07:46)
[2017-04-25] MEDS: *HR* HYDROcodone/Acet 7.5/325 mg TABLET PO PRN (16:15)
[2017-04-25] MEDS: Acetaminophen 325 MG TABLET PO SCH (17:38)
[2017-04-25] MEDS: *HR* Enoxaparin 40 MG/0.4 ML SYRINGE SQ SCH (17:38)
--- NOTE | 2017-04-25 19:55 | Internal Med Progress Note ---
Date of Encounter: 04/25/17 Time of Encounter: 19:53 - Assessment and plan (1) Injury of anterior cruciate ligament Current Visit: Yes Status: Acute Assessment and plan: Orthopedics following; appreciate input. No revision of ACL reconstruction recommended. Right knee replacement possible option; patient considering. Currently will continue PT/OT with plans for short term rehab placement. Spoke with case management who is working on placement. Discontinue ibuprofen given history of stomach ulcers. Will schedule Tylenol Q6H and increase norco to 7.5 mg Q6H PRN (advised to pretreat prior to PT/OT if possible). Qualifiers: Qualified Code(s): S89.82XD - Other specified injuries of left lower leg, subsequent encounter (2) Hypokalemia Current Visit: Yes Status: Acute Assessment and plan: K=3.1 on admission. Recheck BMP in AM. (3) Seizure Current Visit: No Status: Chronic Assessment and plan: No recent seizure activity. Continue seizure precautions and home medications. - Time Spent With Patient less than 15 minutes - Subjective Interval history: Patient had no acute events overnight. She reports some continued mild- moderate pain in left knee, worse during therapy. No other complaints. - Constitutional Vitals: Temp Pulse Resp BP Pulse Ox 98.9 F 78 15 127/85 96 04/25/17 14:22 04/25/17 14:22 04/25/17 14:22 04/25/17 14:22 04/25/17 14:22 General appearance: Present: cooperative, A&O X 3, pleasant, obese, answers questions appropriately - Respiratory Respiratory exam: Present: CTAB. Absent: rales, rhonchi, wheezes Additional comments: Normal WOB - Cardiovascular Cardiovascular exam: Present: RRR, +S1, +S2. Absent: diastolic murmur, gallop, rubs, systolic murmur Additional comments: No BLE edema except moderate edema of left knee. - GI/Abdominal GI/Abdominal exam: Present: normal bowel sounds, soft ( ). Absent: firm, hepatomegaly, mass, splenomegaly, tenderness - Extremities Exam Additional comments: Moderate edema and mild TTP of left knee. - Psychiatric Psychiatric exam: Present: normal affect, normal mood. Absent: anxious, depressed Internal Medicine: Result - Labs CBC & Chem 7: 04/21/17 12:41 04/21/17 12:41 Consult Discharge Plan - Plan Referrals: Duong Tejada MD [Primary Care Provider] - 05/04/17 2:30 pm ()
[2017-04-25] MEDS: traZODone 50 MG TABLET PO SCH (22:31)
[2017-04-25] MEDS: risperiDONE 1 MG TABLET PO SCH (22:31)
[2017-04-26] MEDS: Acetaminophen 325 MG TABLET PO SCH ×5 (00:14→23:45)
[2017-04-26 06:17] LABS: BUN/Creatinine Ratio 19 (6-26); Blood Urea Nitrogen 7 mg/dL (6-20); Calcium 9.1 mg/dL (8.6-10.3); Carbon Dioxide 26 mEq/L (23-29); Chloride 104 mEq/L (98-107); Glucose 73 mg/dL (70-105); Osmolality,Calculated 283 (280-300); Potassium 3.5 mEq/L (3.5-5.1); Sodium 138 mEq/L (136-145); eGFR For Non-African Americans > 60 (> 60)
[2017-04-26] MEDS: levETIRAcetam 250 MG TABLET PO SCH ×2 (07:50→20:50)
[2017-04-26] MEDS: Aspirin 81 MG TAB.CHEW PO SCH (07:51)
[2017-04-26] MEDS: Metoprolol XL (24 HR) Succ 25 MG TAB.ER.24H PO SCH (07:51)
[2017-04-26] MEDS: *HR* HYDROcodone/Acet 7.5/325 mg TABLET PO PRN (07:51)
[2017-04-26] MEDS: Thiamine (B-1) 100 MG TABLET PO SCH (07:51)
[2017-04-26] MEDS: Gabapentin 300 MG CAPSULE PO SCH ×3 (07:52→20:50)
[2017-04-26] MEDS: Folic Acid 1 MG TABLET PO SCH (07:52)
[2017-04-26] MEDS: Vitamin B Complex/Vit C/Vit E 1 EACH TABLET PO SCH (07:52)
[2017-04-26] MEDS: Cyanocobalamin (B-12) 1,000 MCG TABLET PO SCH (07:52)
[2017-04-26] MEDS: Nicotine 21 MG PATCH.TD24 TD SCH (07:54)
[2017-04-26] MEDS: Nystatin POWDER 30 GM BOTTLE TP SCH ×2 (07:54→20:51)
[2017-04-26] MEDS: *HR* Enoxaparin 40 MG/0.4 ML SYRINGE SQ SCH (18:25)
--- NOTE | 2017-04-26 19:21 | Internal Med Progress Note ---
Date of Encounter: 04/26/17 Time of Encounter: 19:19 - Assessment and plan (1) Injury of anterior cruciate ligament Current Visit: Yes Status: Acute Assessment and plan: Orthopedics following; appreciate input. No revision of ACL reconstruction recommended. Right knee replacement possible option; patient considering. Currently will continue PT/OT with plans for short term rehab placement. Spoke with case management who is working on placement; possible discharge tomorrow. Continue Tylenol Q6H and norco 7.5 mg Q6H PRN (advised to pretreat prior to PT/ OT if possible). Qualifiers: Qualified Code(s): S89.82XD - Other specified injuries of left lower leg, subsequent encounter (2) Hypokalemia Current Visit: Yes Status: Resolved Assessment and plan: K=3.5. Resolved. (3) Seizure Current Visit: No Status: Chronic Assessment and plan: No recent seizure activity. Continue seizure precautions and home medications. - Time Spent With Patient less than 15 minutes - Subjective Interval history: Patient had no acute events overnight. She reports pain in left knee improved, but still worse with therapy. No other complaints. - Constitutional Vitals: Temp Pulse Resp BP Pulse Ox 98.4 F 81 18 127/89 96 04/26/17 14:44 04/26/17 14:44 04/26/17 14:44 04/26/17 14:44 04/26/17 14:44 General appearance: Present: cooperative, A&O X 3, pleasant, obese, answers questions appropriately - Respiratory Respiratory exam: Present: CTAB. Absent: accessory muscle use, rales, rhonchi, wheezes Additional comments: Normal WOB - Cardiovascular Cardiovascular exam: Present: RRR, +S1, +S2. Absent: diastolic murmur, gallop, rubs, systolic murmur Additional comments: No BLE edema except moderate edema of left knee. - GI/Abdominal GI/Abdominal exam: Present: normal bowel sounds, soft. Absent: distended, hepatomegaly, mass, splenomegaly, tenderness - Extremities Exam Extremities exam: Present: radial pulses palpable and symmetrical Additional comments: Moderate edema and mild TTP of left knee. - Psychiatric Psychiatric exam: Present: normal affect, normal mood. Absent: anxious, depressed Internal Medicine: Result - Labs CBC & Chem 7: 04/21/17 12:41 04/26/17 04:34 Labs: BMP 04/26/17 04:34 Sodium 138 Potassium 3.5 Chloride 104 Carbon Dioxide 26 BUN 7 Creatinine 0.37 L Glucose 73 Calcium 9.1 Consult Discharge Plan - Plan Referrals: Duong Tejada MD [Primary Care Provider] - 05/04/17 2:30 pm ()
[2017-04-26] MEDS: traZODone 50 MG TABLET PO SCH (20:51)
[2017-04-26] MEDS: risperiDONE 1 MG TABLET PO SCH (20:51)
[2017-04-27] MEDS: Acetaminophen 325 MG TABLET PO SCH ×3 (05:23→18:02)
[2017-04-27] MEDS: Vitamin B Complex/Vit C/Vit E 1 EACH TABLET PO SCH (08:16)
[2017-04-27] MEDS: levETIRAcetam 250 MG TABLET PO SCH ×2 (08:16→20:21)
[2017-04-27] MEDS: Thiamine (B-1) 100 MG TABLET PO SCH (08:17)
[2017-04-27] MEDS: Metoprolol XL (24 HR) Succ 25 MG TAB.ER.24H PO SCH (08:17)
[2017-04-27] MEDS: Folic Acid 1 MG TABLET PO SCH (08:18)
[2017-04-27] MEDS: Aspirin 81 MG TAB.CHEW PO SCH (08:18)
[2017-04-27] MEDS: Gabapentin 300 MG CAPSULE PO SCH ×3 (08:18→20:21)
[2017-04-27] MEDS: Cyanocobalamin (B-12) 1,000 MCG TABLET PO SCH (08:18)
[2017-04-27] MEDS: Nystatin POWDER 30 GM BOTTLE TP SCH ×2 (08:27→20:24)
[2017-04-27] MEDS: *HR* HYDROcodone/Acet 7.5/325 mg TABLET PO PRN ×2 (08:27→18:09)
[2017-04-27] MEDS: Nicotine 21 MG PATCH.TD24 TD SCH (08:28)
[2017-04-27] MEDS: *HR* Enoxaparin 40 MG/0.4 ML SYRINGE SQ SCH (18:02)
--- NOTE | 2017-04-27 18:39 | Internal Med Progress Note ---
Date of Encounter: 04/27/17 Time of Encounter: 18:37 - Assessment and plan (1) Injury of anterior cruciate ligament Current Visit: Yes Status: Acute Assessment and plan: Orthopedics following; appreciate input. No revision of ACL reconstruction recommended. Right knee replacement possible option; patient considering. Currently will continue PT/OT with plans for short term rehab placement. Spoke with case management who is working on placement; awaiting medicaid approval, then to intermediate. Continue Tylenol Q6H and norco 7.5 mg Q6H PRN (advised to pretreat prior to PT/OT if possible). Qualifiers: Qualified Code(s): S89.82XD - Other specified injuries of left lower leg, subsequent encounter (2) Hypokalemia Current Visit: Yes Status: Resolved Assessment and plan: Resolved. (3) Seizure Current Visit: No Status: Chronic Assessment and plan: No recent seizure activity. Continue seizure precautions and home medications. - Time Spent With Patient less than 15 minutes - Subjective Interval history: Patient had no acute events overnight. She reports pain in left knee controlled. Therapy is going well. No other complaints. - Constitutional Vitals: Temp Pulse Resp BP Pulse Ox 98.0 F 85 14 117/84 96 04/27/17 15:08 04/27/17 15:08 04/27/17 15:08 04/27/17 15:08 04/27/17 15:08 General appearance: Present: cooperative, A&O X 3, pleasant, obese, answers questions appropriately - Respiratory Respiratory exam: Present: CTAB. Absent: accessory muscle use, rales, rhonchi, wheezes Additional comments: Normal WOB - Cardiovascular Cardiovascular exam: Present: RRR, +S1, +S2. Absent: diastolic murmur, gallop, rubs, systolic murmur Additional comments: No BLE edema except mild edema of left knee. - GI/Abdominal GI/Abdominal exam: Present: normal bowel sounds, soft. Absent: distended, hepatomegaly, mass, splenomegaly, tenderness - Extremities Exam Extremities exam: Present: radial pulses palpable and symmetrical Additional comments: Mild edema and mild TTP of left knee. - Psychiatric Psychiatric exam: Present: normal affect, normal mood. Absent: anxious, depressed Internal Medicine: Result - Labs CBC & Chem 7: 04/21/17 12:41 04/26/17 04:34 Consult Discharge Plan - Plan Referrals: Duong Tejada MD [Primary Care Provider] - 05/04/17 2:30 pm ()
[2017-04-27] MEDS: risperiDONE 1 MG TABLET PO SCH (20:21)
[2017-04-27] MEDS: traZODone 50 MG TABLET PO SCH (20:22)
[2017-04-28] MEDS: Acetaminophen 325 MG TABLET PO SCH ×2 (00:32→06:11)
[2017-04-28] MEDS: *HR* HYDROcodone/Acet 7.5/325 mg TABLET PO PRN ×2 (00:32→06:11)
[2017-04-28] MEDS: Thiamine (B-1) 100 MG TABLET PO SCH (09:46)
[2017-04-28] MEDS: levETIRAcetam 250 MG TABLET PO SCH (09:46)
[2017-04-28] MEDS: Vitamin B Complex/Vit C/Vit E 1 EACH TABLET PO SCH (09:46)
[2017-04-28] MEDS: Aspirin 81 MG TAB.CHEW PO SCH (09:46)
[2017-04-28] MEDS: Nystatin POWDER 30 GM BOTTLE TP SCH (09:47)
[2017-04-28] MEDS: Metoprolol XL (24 HR) Succ 25 MG TAB.ER.24H PO SCH (09:47)
[2017-04-28] MEDS: Cyanocobalamin (B-12) 1,000 MCG TABLET PO SCH (09:47)
[2017-04-28] MEDS: Gabapentin 300 MG CAPSULE PO SCH (09:47)
[2017-04-28] MEDS: Nicotine 21 MG PATCH.TD24 TD SCH (09:47)
[2017-04-28] MEDS: Folic Acid 1 MG TABLET PO SCH (09:47)
[2017-04-28 11:16] VITALS: BP 107/76
--- NOTE | 2017-04-28 12:01 | Physician Discharge Referral ---
ExtendedCare Referral Info Transfer To: [place] [facility] Institutional Level of Care: Skilled - Diagnosis (1) Injury of anterior cruciate ligament Priority: Primary Status: Acute (2) Hypokalemia Priority: Secondary Status: Resolved (3) Seizure Priority: Secondary Status: Chronic Prognosis: Fair Aware of Diagnosis: Patient Aware of Prognosis: Patient - Transfer Medications Home Medications: RisperiDONE [RisperDAL] 2 mg PO HS 12/22/14 [History] Citalopram Hydrobromide [Celexa] 40 mg PO DAILY 12/08/16 [History] DiphenhydraMINE [Benadryl] 50 mg PO HS 12/08/16 [History] HydrOXYzine Pamoate [Vistaril] 50 mg PO TID PRN 12/08/16 [History] Tizanidine HCl 4 mg PO Q8H PRN 12/08/16 [History] Trazodone HCl 150 - 300 mg PO HS PRN 12/08/16 [History] lamoTRIgine [Lamictal Xr] 200 mg PO HS 12/08/16 [History] Metoprolol XL (24 HR) Succ [Toprol Xl] 25 mg PO DAILY #30 tab.er.24h 12/09/16 [ Rx] Gabapentin [Neurontin] 300 mg PO TID 12/19/16 [History] Aspirin 81 mg PO DAILY #30 tab.chew 12/21/16 [Rx] Clopidogrel [Plavix] 75 mg PO DAILY #30 tablet 12/21/16 [Rx] Cyanocobalamin (B-12) [Vitamin B12] 1,000 mcg PO DAILY #30 tablet 12/21/16 [Rx] Folic Acid 1 mg PO DAILY #30 tablet 12/21/16 [Rx] LevETIRAcetam [Keppra] 500 mg PO BID #60 tablet 01/24/17 [Rx] Atorvastatin [Lipitor] 40 mg PO HS tablet 03/17/17 [Rx] Thiamine (B-1) [Vitamin B-1] 100 mg PO DAILY tablet 03/17/17 [Rx] Vitamin B Complex/Vit C/Vit E [Stresstab] 1 each PO DAILY tablet 03/17/17 [Rx] Acetaminophen [Tylenol] 650 mg PO Q6HR tablet 04/28/17 [Rx] Docusate [Colace] 100 mg PO BID PRN capsule 04/28/17 [Rx] HYDROcodone/Acet 7.5/325 mg [[place] 7.5-325 mg] 1 tab PO Q6HR PRN 7 Days tablet 04/28/17 [Rx] Nicotine Patch [Nicoderm] 21 mg TD DAILY patch.td24 04/28/17 [Rx] Allergies/Adverse Reactions: 3 Allergy/AdvReac Type Severity Reaction Status Date / Time No Known Allergies Allergy Verified 12/22/14 18:27 - Respiratory Orders Smoking Cessation: Smoking cessation has been advised. For more information, call the [place] Tobacco Quit Line at 3-394-GIGF-NOW. - Advance Directives Code Status: Full Code - Mobility Orders Ambulate - Rehabiliation Orders Rehab Potential: Fair Rehab Orders: Evaluation for Physical Therapy, Evaluation for Occupational Therapy - Diet Orders Regular CERTIFICATION: I certify that the transfer of the above named patient to an Extended Care Facility is necessary for the continuing treatment of the diagnosis listed. The above information is true and accurate reflection of patient's current condition. Confidential - Redisclosure prohibited without a patient's written consent.
--- NOTE | 2017-04-28 12:06 | Discharge Summary ---
Date of Encounter: 04/28/17 Time of Encounter: 12:02 - Discharge Diagnosis (1) Injury of anterior cruciate ligament Priority: Primary Status: Acute Qualifiers: Qualified Code(s): S89.82XD - Other specified injuries of left lower leg, subsequent encounter (2) Hypokalemia Priority: Secondary Status: Resolved (3) Seizure Priority: Secondary Status: Chronic Hospital course: Ms. 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 She was admitted to general medical floor and orthopedic surgery was consulted. Since she is not a good surgical candidate and the fact that surgical revision would not address the severe arthritis identified, it was recommended that she continue with physical therapy. Knee replacement surgery could be considered at a later time. PT/OT were consulted and patient did well with therapy. Pain medications were optimized to achieve good pain control. She had a brace for the knee. She was accepted at [facility] after medicaid approval. She will continue therapy there after discharge. Patient has met maximum benefit of this hospitalization and will be discharged to [facility] in stable condition. Discharge discussed with: patient, nurse, case management - Time Spent with Patient Total time spent providing and/or coordinating discharge services: Greater than 30 minutes - Discharge Medications Home Medications: RisperiDONE [RisperDAL] 2 mg PO HS 12/22/14 [History] Citalopram Hydrobromide [Celexa] 40 mg PO DAILY 12/08/16 [History] DiphenhydraMINE [Benadryl] 50 mg PO HS 12/08/16 [History] HydrOXYzine Pamoate [Vistaril] 50 mg PO TID PRN 12/08/16 [History] Tizanidine HCl 4 mg PO Q8H PRN 12/08/16 [History] Trazodone HCl 150 - 300 mg PO HS PRN 12/08/16 [History] lamoTRIgine [Lamictal Xr] 200 mg PO HS 12/08/16 [History] Metoprolol XL (24 HR) Succ [Toprol Xl] 25 mg PO DAILY #30 tab.er.24h 12/09/16 [ Rx] Gabapentin [Neurontin] 300 mg PO TID 12/19/16 [History] Aspirin 81 mg PO DAILY #30 tab.chew 12/21/16 [Rx] Clopidogrel [Plavix] 75 mg PO DAILY #30 tablet 12/21/16 [Rx] Cyanocobalamin (B-12) [Vitamin B12] 1,000 mcg PO DAILY #30 tablet 12/21/16 [Rx] Folic Acid 1 mg PO DAILY #30 tablet 12/21/16 [Rx] LevETIRAcetam [Keppra] 500 mg PO BID #60 tablet 01/24/17 [Rx] Atorvastatin [Lipitor] 40 mg PO HS tablet 03/17/17 [Rx] Thiamine (B-1) [Vitamin B-1] 100 mg PO DAILY tablet 03/17/17 [Rx] Vitamin B Complex/Vit C/Vit E [Stresstab] 1 each PO DAILY tablet 03/17/17 [Rx] Acetaminophen [Tylenol] 650 mg PO Q6HR tablet 04/28/17 [Rx] Docusate [Colace] 100 mg PO BID PRN capsule 04/28/17 [Rx] HYDROcodone/Acet 7.5/325 mg [[place] 7.5-325 mg] 1 tab PO Q6HR PRN 7 Days tablet 04/28/17 [Rx] Nicotine Patch [Nicoderm] 21 mg TD DAILY patch.td24 04/28/17 [Rx] Allergies/Adverse Reactions: 3 Allergy/AdvReac Type Severity Reaction Status Date / Time No Known Allergies Allergy Verified 12/22/14 18:27 Date of admission: 04/21/17 14:14 Primary care physician: Duong Tejada MD Consults: 04/21/17 15:11 Consult to Orthopedic Surgery [CONS] Routine Consulting Provider: Orthopedic and Sports Medicine Reason for Consult: knee injury - known ACL tear Call Completed: Yes 04/21/17 16:18 Consult to [employer] [CONS] Routine Reason for SW Consult: Discharge planning 04/21/17 16:49 Consult to Occupational Therapy [CONS] Routine Comment: Evaluate, develop and implement POC Reason for Consult: Left knee pain -- frequent falls Consult to Physical Therapy [CONS] Routine Comment: Evaluate, develop and implement POC Reason for Consult: Left knee pain -- frequent falls Discharging clinician: Parker Corrigan Anticipated date of discharge: 04/28/17 - Constitutional Vitals: Temp Pulse Resp BP Pulse Ox 97.6 F 97 16 107/76 97 04/28/17 11:00 04/28/17 11:00 04/28/17 11:00 04/28/17 11:00 04/28/17 11:00 General appearance: Present: cooperative, A&O X 3, pleasant, obese, answers questions appropriately - Respiratory Respiratory exam: Present: CTAB. Absent: accessory muscle use, rales, rhonchi, wheezes Additional comments: Normal WOB - Cardiovascular Cardiovascular exam: Present: RRR, +S1, +S2. Absent: diastolic murmur, gallop, rubs, systolic murmur Additional comments: No BLE edema except mild edema of left knee. - GI/Abdominal GI/Abdominal exam: Present: normal bowel sounds, soft. Absent: distended, hepatomegaly, mass, splenomegaly, tenderness - Extremities Exam Additional comments: Mild edema and mild TTP of left knee. - Psychiatric Psychiatric exam: Present: normal affect, normal mood. Absent: anxious, depressed - Patient Status Disposition: Transfer Inpatient Rehab Fac Condition: Good Overall status at discharge: patient is progressing back to baseline - Discharge Instructions Follow Up With: Duong Tejada MD [Primary Care Provider] - 05/04/17 2:30 pm () - Diet and Activity Activity: as per physical therapy Diet: regular diet
== END 2017-04-28 13:40 ==
LOC: 3BNU 11:40 → EMEROO 11:40 → 3BNU 14:30 → 3ANU 04-25 02:35
PROVIDERS: ADMIT Family Medicine; ATTEND Registered Nurse

== ENCOUNTER 2017-12-21 12:01 | Inpatient (IN) ==
--- NOTE | 2017-12-21 11:31 | Anesthesia Evaluation PreOp ---
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 Factor V Leyden and prothrombin gene mutations were not obtained as they contribute more to works venous thrombosis and not arterial thrombosis.), Other (bipolar) Other Medical History: GERD (Hx PUD) Anesthesia History: No Prior Anesthetic Complications, Past Anesthesia (C/S) : No Test: Negative Alcohol Use: occasionally, heavy Drug use: marijuana Medications and Allergies Citalopram Hydrobromide [Celexa] 40 mg PO DAILY 12/08/16 [History] DiphenhydraMINE [Benadryl] 50 mg PO HS 12/08/16 [History] HydrOXYzine Pamoate [Vistaril] 50 mg PO TID PRN 12/08/16 [History] Tizanidine HCl 4 mg PO Q8H PRN 12/08/16 [History] Trazodone HCl 150 - 300 mg PO HS PRN 12/08/16 [History] lamoTRIgine [Lamictal Xr] 200 mg PO HS 12/08/16 [History] Metoprolol XL (24 HR) Succ [Toprol Xl] 25 mg PO DAILY #30 tab.er.24h 12/09/16 [Rx] Aspirin 81 mg PO DAILY #30 tab.chew 12/21/16 [Rx] Clopidogrel [Plavix] 75 mg PO DAILY #30 tablet 12/21/16 [Rx] Acetaminophen w/Cod 300-30 mg [Tylenol w/Codeine #3] 1 each PO Q6HR PRN 10/13/17 [History] Atorvastatin [Lipitor] 40 mg PO DAILY 12/21/17 [History] Buspirone HCl [Buspar] 15 mg PO BID 12/21/17 [History] DULoxetine [Cymbalta] 30 mg PO QAM 12/21/17 [History] DULoxetine [Cymbalta] 60 mg PO QPM 12/21/17 [History] Gabapentin [Neurontin] 600 mg PO TID 12/21/17 [History] Oxybutynin Chloride [Ditropan Xl] 10 mg PO DAILY 12/21/17 [History] risperiDONE [Risperdal] 3 mg PO HS 12/21/17 [History] Allergy/AdvReac Type Severity Reaction Status Date / Time No Known Allergies Allergy Verified 12/21/17 12:43 Anesthesia Results - Labs Laboratory Tests 12/15/17 12/15/17 12/15/17 11:25 11:25 11:25 Hgb 14.4 Hct 44.7 Plt Count 200 Sodium 137 Potassium 4.1 Chloride 105 Carbon Dioxide 25 BUN 7 Creatinine 0.90 Serum , Qual Negative - Imaging EKG: report reviewed (SINUS RHYTHM POSSIBLE LEFT ATRIAL ENLARGEMENT [-0.1mV P WAVE IN V1/V2] Incomplete right bundle branch block POSSIBLE LEFT VENTRICULAR HYPERTROPHY [VOLTAGE CRITERIA PLUS LAE OR QRS WIDENING] ST DEVIATION AND MODERATE T-WAVE ABNORMALITY, CONSIDER ANTERIOR ISCHEMIA [-0.1+ mV T WAVE IN V3/V4]) Additional studies: carotid studies: mpressions: The left carotid arteries have minimal plaque throughout. 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 Anesthesia History: No Prior Anesthetic Complications, Past Anesthesia : No Test: Negative Alcohol Use: occasionally, heavy Drug use: marijuana - Meds/Allergy Pre-op Review Medications Reviewed: Yes Allergies Reviewed: Yes Beta Blockers on Current Med List: Yes (Metoprolol today am) Anesthesia Exam O2 Sat Height 1.63 m Height 1.63 m Weight 86.183 kg Weight 86.183 kg O2 Sat by Pulse Oximetry 96 Vital Signs Temp Pulse Resp BP Pulse Ox 98.8 F 83 18 109/76 96 12/21/17 12:23 12/21/17 12:23 12/21/17 12:23 12/21/17 12:23 12/21/17 12:23 Height: 5'4 Weight: 190 lbs NPO (# of Hours): MN Pain Scale: 0 - HEENT Pupil (Motor): Pupils equal, EOMI Mallampati: III Teeth: Prosthesis Denture Type: Upper: Complete Oral Opening: Less than or equal to 3 - BILL RECAPITULATION CLERK LOC: Oriented BILL RECAPITULATION CLERK Motor: Normal RUE, Normal LUE, Normal RLE, Normal Face, Deficit LLE (slight weakness) 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
[2017-12-21] MEDS ORDERED: *HR* Rocuronium Bromide 50 MG/5 ML VIAL ONE (12:20)
[2017-12-21] MEDS ORDERED: Lidocaine -MPF 4% 5 ML AMPUL ONE (12:20)
[2017-12-21] MEDS ORDERED: *HR* Midazolam HCl 2 MG/2 ML VIAL ONE (12:20)
[2017-12-21] MEDS ORDERED: Lidocaine -MPF 2% 2 ML VIAL ONE (12:20)
[2017-12-21] MEDS ORDERED: *HR* Succinylcholine 200 MG/10 ML VIAL IVP ONE (12:20)
[2017-12-21] MEDS ORDERED: *HR* FentaNYL (PF) 100 MCG/2 ML VIAL ONE (12:20)
[2017-12-21] MEDS ORDERED: *HR* Propofol 200 MG/20 ML VIAL IVP ONE (12:21)
[2017-12-21] MEDS ORDERED: Famotidine 20 MG/2 ML VIAL IVP ONE (13:27)
[2017-12-21] MEDS ORDERED: Pregabalin 75 MG CAPSULE PO ONE (13:28)
[2017-12-21] MEDS ORDERED: Ringers Solution, Lactated 1,000 ML IVC SCH ×2 (13:30→17:49)
[2017-12-21] MEDS ORDERED: Albuterol 2.5 MG/3 ML NEBULIZER IH ONE (13:39)
--- NOTE | 2017-12-21 13:41 | History & Physical Report ---
Date of Encounter: 12/21/17 Time of Encounter: 13:41 24 Hour HP Update - Instructions Instructions: If the History and Physical is less than 30 days old and was completed prior to A.M. admission and or procedure and has NOT been updated on calendar day of procedure please complete this update prior to performing procedure. - Update Patient reports changes in Medical Condition: No Changes in examination, assessment, or condition: No Changes in Medication: No Preop tests/diagnostics Reviewed: Yes Surgery Remains Indicated: Yes Consent for Planned Operative Procedure(s) Verified: Yes - Pre-Operative Checklist Preoperative Checklist Indicated: No Prophylactic Antibiotic Ordered: Yes Is VTE Prophylaxis Indicated?: Yes
[2017-12-21] MEDS ORDERED: Albuterol 2.5 MG/3 ML NEBULIZER ONE (13:42)
[2017-12-21] MEDS ORDERED: Lidocaine -MPF 2% 5 ML VIAL ONE (14:41)
[2017-12-21] MEDS ORDERED: ROPIVACAINE HCL/PF 0.5% 30 ML VIAL ONE (14:41)
[2017-12-21] MEDS ORDERED: Bupivacaine/Clonidine Syringe 1 EACH SYRINGE ONE (14:42)
[2017-12-21] MEDS ORDERED: Tetracaine/PF 20 MG/2 ML AMPUL ONE (14:42)
[2017-12-21] MEDS ORDERED: *HR* HYDROmorphone (PF) 1 MG/ML SYRINGE IVP PRN (14:46)
[2017-12-21] MEDS ORDERED: Dexamethasone 4 MG/ML VIAL IVP ONE (14:46)
[2017-12-21] MEDS ORDERED: Ondansetron 4 MG/2 ML VIAL IVP ONE (14:46)
[2017-12-21] MEDS ORDERED: *HR* Labetalol 20 MG/4 ML SYRINGE IVP PRN (14:46)
--- NOTE | 2017-12-21 15:06 | Discharge Summary ---
Orders not resulted at time of discharge: Pending orders 12/21/17 13:28 US anesthesia pain block [US] Routine 12/21/17 13:41 XR knee LT 1-2V [XR] Routine Hemoglobin and Hematocrit [HEME] Routine Date of Encounter: 12/25/17 Time of Encounter: 10:58 - Discharge Diagnosis (1) Obesity (BMI 30.0-34.9) Priority: Secondary Status: Chronic (2) Hyperlipidemia Priority: Secondary Status: Chronic Qualifiers: Hyperlipidemia type: unspecified Qualified Code(s): E78.5 - Hyperlipidemia, unspecified (3) Hypertension Priority: Secondary Status: Chronic Qualifiers: Hypertension type: unspecified secondary hypertension Qualified Code(s): I15.9 - Secondary hypertension, unspecified; I15 - Secondary hypertension (4) Arthritis of left knee Priority: Primary Status: Chronic (5) Status post total left knee replacement Priority: Primary Status: Acute (6) Bipolar disease, chronic Priority: Secondary Status: Chronic (7) History of CVA (cerebrovascular accident) Priority: Secondary Status: Chronic (8) Seizure Priority: Secondary Status: Chronic (9) Tobacco abuse Priority: Secondary Status: Chronic - Hospital Course Hospital course: Ms. Simmons is a 47 year old female The patient had an uneventful postoperative course. They received antibiotics and physical therapy and were discharged in stable condition. There will follow-up in the office in 2 weeks. - Time Spent with Patient Total time spent providing and/or coordinating discharge services: - Discharge Medications Home Medications: Citalopram Hydrobromide [Celexa] 40 mg PO DAILY 12/08/16 [History] DiphenhydraMINE [Benadryl] 50 mg PO HS 12/08/16 [History] HydrOXYzine Pamoate [Vistaril] 50 mg PO TID PRN 12/08/16 [History] Tizanidine HCl 4 mg PO Q8H PRN 12/08/16 [History] Trazodone HCl 150 - 300 mg PO HS PRN 12/08/16 [History] lamoTRIgine [Lamictal Xr] 200 mg PO HS 12/08/16 [History] Metoprolol XL (24 HR) Succ [Toprol Xl] 25 mg PO DAILY #30 tab.er.24h 12/09/16 [Rx] Aspirin 81 mg PO DAILY #30 tab.chew 12/21/16 [Rx] Clopidogrel [Plavix] 75 mg PO DAILY #30 tablet 12/21/16 [Rx] Acetaminophen w/Cod 300-30 mg [Tylenol w/Codeine #3] 1 each PO Q6HR PRN 10/13/17 [History] Aspirin Enteric Coated [Aspirin EC] 325 mg PO BID #20 tablet. 12/21/17 [Rx] Atorvastatin [Lipitor] 40 mg PO DAILY 12/21/17 [History] Buspirone HCl [Buspar] 15 mg PO BID 12/21/17 [History] DULoxetine [Cymbalta] 30 mg PO QAM 12/21/17 [History] DULoxetine [Cymbalta] 60 mg PO QPM 12/21/17 [History] Gabapentin [Neurontin] 600 mg PO TID 12/21/17 [History] OxyCODONE Immed Rel [Roxicodone 5 MG] 5 mg PO Q6HR PRN 5 Days #20 tablet 12/21/17 [Rx] Oxybutynin Chloride [Ditropan Xl] 10 mg PO DAILY 12/21/17 [History] risperiDONE [Risperdal] 3 mg PO HS 12/21/17 [History] Allergies/Adverse Reactions: Allergy/AdvReac Type Severity Reaction Status Date / Time No Known Allergies Allergy Verified 12/21/17 12:43 Primary care physician: Duong Tejada MD - Patient Status Disposition: Transfer SNF Condition: Good Overall status at discharge: patient is progressing back to baseline - Discharge Instructions Follow Up With: Duong Tejada MD [Primary Care Provider] - Additional Instructions: Discharge Instructions: Total Knee Replacement Please call [facility] ([phone]), your Primary Care Physician, or report to the Emergency Room if you have any of the following symptoms: Nausea, vomiting, fever greater that 101.5, swelling, chest pain, shortness of breath, increased pain/redness/drainage/odor for your incision site, numbness/tingling, or any other concerning symptoms. ACTIVITY:Weight-bearing as tolerated. You may progress off support (crutches or walker) as tolerated. Incentive Spirometer 10 times an hour. MEDICATIONS: Upon discharge resume your home medications. Take all the medications as prescribed. Take a stool softener if taking narcotic pain medications. Stool softeners are only effective if you drink enough fluids. Drink 6-8 glass of water or fluids a day, unless this is not allowed for another health problem. Despite using stool softeners, if you haven't had a bowel movement in 3 days, please switch to a gentle laxative. Gentle laxatives are sold over the counter. You should have a bowel movement within 24 hours, if not call the office. You will be discharged from the hospital with a prescription for pain medication. You are encouraged to decrease the use of narcotic pain medication as tolerated. Should you require a refill, please call the office. [facility] prescribes narcotic pain medication for only 4-6 weeks after surgery. If you require pain medication beyond this time period, you may be referred to your Primary Care Physician or to the Pain Clinic for further evaluation. Plan ahead for refills on pain medication as many narcotics either need to be picked up at the office or mailed. It is best to call 48-72 hours in advance of needing a prescription refill so you don't run out of medication. To help control the post-operative pain, you may take NSAIDs (Aleve,Advil, Motrin, Ibuprofen, Naprosyn) or Tylenol as prescribed on the bottle in addition to the pain medication. ANTICOAGULATION (blood thinners): Continue your Aspirin, Lovenox or Coumadin as prescribed to help prevent a blood clot in the leg or in the lungs. As long as your incision remains dry and you tolerate the NSAIDs (Aleve, Advil, Motrin, ibuprofen, naprosyn), it is OK to use the NSAIDS while you are taking your anticoagulation medication. Should your incision start to drain, stop the NSAID and contact our office. Common symptoms of blood clot in the legs include: localized pain, swelling, calf tenderness, redness or discoloration of the skin. Blood clot in the lung symptoms include: shortness of breath, rapid pulse, sweating, and chest pain that worsens with deep breathing, coughing up blood, lightheadedness, feelings of anxiety. If you experience any of these symptoms notify your physician immediately, go to the emergency room, or if having trouble breathing, call 911. WOUND CARE: Leave the dressing on for 7 to 10days. You may change the dressing if it becomes saturated greater than 50%. Do not get the dressing wet at anytime. Wash your hands with antibacterial soap, rinse and dry prior to any wound care. If you have kaylin the visiting nurse or rehab facility can remove the stapes 10-14 days after surgery and place steri-strips across the wound. Leave the steri-strips in place until they fall off on their won. You may let water from the shower run on top of the steri-strips. If you do not have a visiting nurse or rehab facility, you will need to return to the office at 10-14 days for the kaylin to be removed. If you have itching or redness around the dressing call the office. FOLLOW-UP: Please follow up with your surgeon in the orthopedic clinic in 4 weeks from the day of surgery. If you have kaylin that need to be removed, you will need to come back to the office in 10-14 days from the day of surgery.
[2017-12-21] MEDS ORDERED: Ondansetron 4 MG/2 ML VIAL ONE (15:11)
[2017-12-21] MEDS ORDERED: Dexamethasone 4 MG/ML VIAL ONE (15:11)
--- NOTE | 2017-12-21 15:15 | Anesthesia Procedures ---
Date of Encounter: 12/21/17 Time of Encounter: 11:30 Procedures: Anesthesia - Nerve Block Procedure Date: 12/21/17 Time: 15:00 Pre-op Diagnosis: Left Knee OA Surgical Procedure: Left TKA Checklist: Correct Patient Identifier Correct side: Left Blood Thinner: Yes (Plavix) Monitor Applied: EKG, BP, Pulse Oximetry Sedation: Versed (mg): 2 Sedation: Fentanyl (mcg): 50 Indication: Post Op Analgesia Pre-op Neuro Deficits: No Block Type: Other (Adductor Canal IPACK LIAI) Catheter placed: No Depth at skin (cm): 4 Sterile Technique: Yes Ultrasound used: Yes Anatomy identified: Yes Visual spread of Local: Yes Neuro Stimulation: No Blood on Needle Aspiration: No Smooth Injection of Local: Yes Pain with Injection of Local: No Prep: Chlorhexadine Needle: 21 x 100 mm Stimuplex Local: Tetracaine (20), Ropivacaine Volume (cc): 30 plus 20cc Number of Attempts: 1 Complications: None/effective block Vitals: Vital Signs/O2 Sat/Glucose, Most Current Temp Pulse Resp BP Pulse Ox 12/21/17 15:10 63 18 106/65 93 12/21/17 14:55 67 18 106/72 94 12/21/17 14:49 98.8 F 83 18 109/76 96 12/21/17 14:44 69 18 108/72 94 12/21/17 14:04 18 109/76 96 12/21/17 12:23 98.8 F 83 18 109/76 96
[2017-12-21] MEDS ORDERED: Ethanol\\Acetic Acid\\Na Ace\\Ben 1,000 ML IRRIG.SOLN IR ONE (15:17)
[2017-12-21] MEDS ORDERED: *HR* Morphine 10 MG/ML VIAL ONE (16:19)
[2017-12-21] MEDS ORDERED: Lacri-Lube 3.5 GM TUBE ONE (16:25)
--- NOTE | 2017-12-21 16:35 | Orthopedic Operative Note ---
Date of procedure: 12/21/17 Pre-op diagnosis: Left knee arthritis Post-op diagnosis: same Procedure: Procedure: Left robotic-assisted Total knee replacement, removal of hardware from femur Estimated blood loss: 200 cc Hardware: Metal and polyethylene replacement. Press-fit Samara Femur: 3 Tibia: 4 PS insert: 9 Patella: 36 Exam Under anesthesia: Flexion contracture 7 degrees to degrees valgus as calculated by the robot full flexion and no instability Procedural Notes: Grade 4 arthritic changes all 3 compartments. Operative procedure: The patient was brought to the operating room and placed on the operating room table. After general anesthesia was administered the operative knee was examined. Findings were noted in the exam under anesthesia. The operative extremity was prepped and draped in sterile surgical fashion. The patient received IV antibiotics prior to skin incision. A standard midline incision was made centered over the patella. The incision was made through the skin and subcutaneous tissue. A medial parapatellar tendon approach was performed. Care was taken to preserve tissue along the medial aspect of the patella. And to protect the patella tendon. The deep MCL was released off the medial tibia. The infra patella fat pad was excised. The patella was everted and cut was made at the level of the insertion of the quadriceps and patella tendon. The patella was sized the guide was seated and the lug holes are drilled. Knee was brought into flexion. Patient noted to have grade 4 arthritic changes all 3 compartments. Steinmann pins were placed in the tibia and the femur for the tibial and femoral arrays respectively. Checkpoints were also placed in the tibia and the femur for calculation purposes. The knee including the femur and the tibial registered. Osteophytes, ACL and PCL were excised at this point. Ex tension and flexion were assessed with a valgus stress components were adjusted on the computer to balance the knee. Femoral cuts were made first with robotic assistance, these included the anterior cut posterior cuts chamfer cuts. Tibial cut was then performed with robotic assistance as well. Bone fragments were removed, as well as the medial and lateral meniscus. The size 3 femoral guide was seated box cut was made lug holes are drilled. The size 4 tibial tray was seated and prepared with the fin cutter. Trial reduction with the 9 PS Crys revealed extension of 0 degree X extension, 0 degree varus valgus and full flexion. No varus valgus instability. Trial reduction revealed excellent patella tracking. All trial components were removed all bony surfaces were irrigated. The Tibia was seated followed by the femur, The selected Crys size was seated and secured patella. Patient had similar findings for motion and stability. The knee was then irrigated out with 2 L of pulse irrigation. The extensor mechanism was closed with #2 FiberWire suture and #2 PDS suture. The subcutaneous tissue was then irrigated and closed deep with #1 PDS suture superficially with 0 PDS suture and skin was closed with zip tie The patient was then placed in a sterile dressing and a postoperative brace extubated and transferred to recovery room in stable condition. Anesthesia: GETA Surgeon: Dandre Marshall Was there an assistant account executive present: No Estimated blood loss (cc): 200 Disposition: PACU
[2017-12-21 17:26] LABS: Hematocrit 43.3 % (35.3-44.9); Hemoglobin 13.9 g/dL (11.5-15.4)
[2017-12-21] MEDS ORDERED: Temazepam 15 MG CAPSULE PO PRN (17:49)
[2017-12-21] MEDS ORDERED: MOM Conc 10 ML UD.LIQ PO PRN (17:49)
[2017-12-21] MEDS ORDERED: hydrOXYzine pamoate 25 MG CAPSULE PO PRN (17:49)
[2017-12-21] MEDS ORDERED: Ondansetron 4 MG/2 ML VIAL IVP PRN (17:49)
[2017-12-21] MEDS ORDERED: *HR* OxyCODONE/APAP 5/325 TABLET PO PRN (17:49)
[2017-12-21] MEDS ORDERED: tiZANidine 4 MG TABLET PO PRN (17:49)
[2017-12-21] MEDS ORDERED: traZODone 50 MG TABLET PO PRN (17:49)
[2017-12-21] MEDS ORDERED: traMADol 50 MG TABLET PO PRN (17:49)
[2017-12-21] MEDS ORDERED: Naloxone 0.4 MG/ML INJ IVP PRN (17:49)
[2017-12-21] MEDS ORDERED: Sennosides 8.6 MG TABLET PO PRN (17:49)
[2017-12-21] MEDS ORDERED: *HR* Enoxaparin 30 MG/0.3 ML SYRINGE SQ SCH (18:00)
[2017-12-21] MEDS: lamoTRIgine 100 MG TABLET PO SCH (21:07)
[2017-12-21] MEDS: *HR* Enoxaparin 30 MG/0.3 ML SYRINGE SQ SCH (21:07)
[2017-12-21] MEDS: Gabapentin 300 MG CAPSULE PO SCH (21:08)
[2017-12-21] MEDS: RisperiDAL 3 MG TABLET PO SCH (21:08)
[2017-12-22] MEDS: *HR* OxyCODONE Immed Rel 5 MG TABLET PO PRN ×2 (00:30→05:25)
[2017-12-22 05:19] LABS: Hematocrit 37.3 % (35.3-44.9)
[2017-12-22 05:29] LABS: Hemoglobin 11.7 g/dL (11.5-15.4)
[2017-12-22 05:32] LABS: BUN/Creatinine Ratio 13 (6-26); Blood Urea Nitrogen 9 mg/dL (6-20); Calcium 8.5 mg/dL (8.6-10.3); Carbon Dioxide 26 mEq/L (23-29); Chloride 105 mEq/L (98-107); Glucose 127 mg/dL (70-105); Osmolality,Calculated 290 (280-300); Potassium 4.4 mEq/L (3.5-5.1); Sodium 140 mEq/L (136-145); eGFR For Non-African Americans > 60 (> 60)
[2017-12-22] MEDS: *HR* Enoxaparin 30 MG/0.3 ML SYRINGE SQ SCH ×2 (06:26→16:51)
--- NOTE | 2017-12-22 06:33 | Orthopedics Progress Note ---
Date of Encounter: 12/22/17 Time of Encounter: 06:33 - Assessment and Plan (1) Obesity (BMI 30.0-34.9) Current Visit: Yes Status: Chronic (2) Hyperlipidemia Current Visit: Yes Status: Chronic Qualifiers: Hyperlipidemia type: unspecified Qualified Code(s): E78.5 - Hyperlipidemia, unspecified (3) Hypertension Current Visit: Yes Status: Chronic Qualifiers: Hypertension type: unspecified secondary hypertension Qualified Code(s): I15.9 - Secondary hypertension, unspecified; I15 - Secondary hypertension (4) Arthritis of left knee Current Visit: Yes Status: Chronic (5) Status post total left knee replacement Current Visit: Yes Status: Acute (6) Bipolar disease, chronic Current Visit: Yes Status: Chronic (7) History of CVA (cerebrovascular accident) Current Visit: No Status: Chronic (8) Seizure Current Visit: No Status: Chronic (9) Tobacco abuse Current Visit: No Status: Chronic Subjective Interval history: Patient was seen this morning doing well without complaints. Afebrile vital signs stable. Operative extremity: Neurovascularly intact Dressing clean dry and intact Calves nontender Assessment and plan: Continue with postoperative care Hematocrit 37 Objective Vital signs: Vital Signs Temp Pulse Resp BP Pulse Ox 12/22/17 03:55 97.4 F L 78 18 97/56 97 12/21/17 22:55 98.1 F 66 16 111/76 97 12/21/17 21:00 97.9 F 67 14 110/76 98 12/21/17 19:24 97.4 F L 65 12 117/81 97 12/21/17 18:36 97.6 F 71 12 105/71 96 12/21/17 18:17 97.8 F 61 12 116/80 97 12/21/17 18:07 96 12/21/17 18:00 92 12/21/17 17:18 68 16 130/78 96 12/21/17 17:08 98.1 F 73 20 119/86 95 12/21/17 16:58 73 12 126/86 96 12/21/17 16:48 73 14 119/79 94 12/21/17 16:38 98.3 F 84 24 162/85 100 12/21/17 15:19 62 16 96/67 94 12/21/17 15:10 63 18 106/65 93 10/25/18 14:55 67 18 106/72 94 12/21/17 14:49 98.8 F 83 18 109/76 96 12/21/17 14:44 69 18 108/72 94 12/21/17 14:04 18 109/76 96 12/21/17 12:23 98.8 F 83 18 109/76 96 Intake and Output 12/21/17 12/21/17 12/22/17 15:59 23:59 07:59 Intake Total 100 / 100 200 / 200 Output Total 350 / 350 200 / 200 Balance -250 / -250 0 / 0 Intake: IV Fluids 100 / 100 Ancef 2,000 MG In 0.9 % Sodium 100 / 100 Chloride 100 ML @ 200 mls/hr IVPB Q8H [facility] Rx#:[id number] Oral 200 / 200 Output: Urine 150 / 150 200 / 200 Estimated Blood Loss 200 / 200 Other: # Voids 1 # Urine Diapers 1 Weight 86.183 kg - Labs CBC & BMP: 12/22/17 04:18 12/22/17 04:18 Labs: Abnormal lab results Glucose 127 mg/dL (70-105) H 12/22/17 04:18 Calcium 8.5 mg/dL (8.6-10.3) L 12/22/17 04:18 Consult Discharge Plan - Plan Referrals: Duong Tejada MD [Primary Care Provider] -
[2017-12-22] MEDS ORDERED: Metoprolol XL (24 HR) Succ 25 MG TAB.ER.24H PO SCH (09:00)
[2017-12-22] MEDS ORDERED: Aspirin 81 MG TAB.CHEW PO SCH (09:00)
[2017-12-22] MEDS: Gabapentin 300 MG CAPSULE PO SCH ×3 (09:16→20:50)
[2017-12-22] MEDS: lamoTRIgine 100 MG TABLET PO SCH ×3 (09:17→20:50)
[2017-12-22] MEDS ORDERED: Ketorolac 15 MG/ML VIAL IVP ONE (14:55)
--- NOTE | 2017-12-22 19:17 | Physician Discharge Referral ---
Home Health/Hosp Referral Info Transfer to: Home Health Provider in Charge Post Discharge: PCP - Diagnosis (1) Arthritis of left knee Status: Chronic (2) Status post total left knee replacement Priority: Primary Status: Acute (3) Bipolar disease, chronic Status: Chronic (4) Hyperlipidemia Status: Chronic (5) Hypertension Status: Chronic (6) Obesity (BMI 30.0-34.9) Status: Chronic (7) CVA (cerebral vascular accident) Status: Acute (8) Seizure Status: Chronic (9) Tobacco abuse Status: Chronic (10) TIA (transient ischemic attack) Status: Ruled-out - Respiratory Orders None Smoking Cessation: Smoking cessation has been advised. For more information, call the [place] Tobacco Quit Line at 0-570-MOME-NOW. - Diet/Nutrition Diet/Nutrition Orders: Regular - Activity Activity Orders: Up ad santiago, Ambulate, Walker - Services Needed Following services are medically necessary services: Nursing, Home Health Aide, Physical Therapy, Occupational Therapy Home Care Orders: Opsite dressing, leave intact until first post-operative visit. If dressing becomes >50% saturated, contact office, remove dressing and place appropriate dressing in its place. Do not allow for dressing to get wet. Zipline in place, plan to remove at post-operative day #14-16. Total Joint Precautions x 6 weeks Apply cold therapy wrap 3-6x/day for 20 minutes at a time. Encourage ambulation throughout the day Use Incentive spirometer 10x/hour. Elevate affected extremity above heart as tolerated. Brace: Wear knee immobilizer at night until first post-operative appt. - Transfer Medications Home Medications: Citalopram Hydrobromide [Celexa] 40 mg PO DAILY 12/08/16 [History] DiphenhydraMINE [Benadryl] 50 mg PO HS 12/08/16 [History] HydrOXYzine Pamoate [Vistaril] 50 mg PO TID PRN 12/08/16 [History] Tizanidine HCl 4 mg PO Q8H PRN 12/08/16 [History] Trazodone HCl 150 - 300 mg PO HS PRN 12/08/16 [History] lamoTRIgine [Lamictal Xr] 200 mg PO HS 12/08/16 [History] Metoprolol XL (24 HR) Succ [Toprol Xl] 25 mg PO DAILY #30 tab.er.24h 12/09/16 [Rx] Aspirin 81 mg PO DAILY #30 tab.chew 12/21/16 [Rx] Clopidogrel [Plavix] 75 mg PO DAILY #30 tablet 12/21/16 [Rx] Acetaminophen w/Cod 300-30 mg [Tylenol w/Codeine #3] 1 each PO Q6HR PRN 10/13/17 [History] Aspirin Enteric Coated [Aspirin EC] 325 mg PO BID #20 tablet.dr 12/21/17 [Rx] Atorvastatin [Lipitor] 40 mg PO DAILY 12/21/17 [History] Buspirone HCl [Buspar] 15 mg PO BID 12/21/17 [History] DULoxetine [Cymbalta] 30 mg PO QAM 12/21/17 [History] DULoxetine [Cymbalta] 60 mg PO QPM 12/21/17 [History] Gabapentin [Neurontin] 600 mg PO TID 12/21/17 [History] OxyCODONE Immed Rel [Roxicodone 5 MG] 5 mg PO Q6HR PRN 5 Days #20 tablet 12/21/17 [Rx] Oxybutynin Chloride [Ditropan Xl] 10 mg PO DAILY 12/21/17 [History] risperiDONE [Risperdal] 3 mg PO HS 12/21/17 [History] Allergies/Adverse Reactions: Allergy/AdvReac Type Severity Reaction Status Date / Time No Known Allergies Allergy Verified 12/21/17 12:43 Certification: Further, I certify that my clinical findings support that this patient is homebound (i.e. absences from home require considerable and taxing effort and are for medical reasons or restoration services or infrequently or short duration when for other reasons) because: Homebound Reason: Post-surgery restriction and or conditions limit ability to leave home Attestation: My signature below is to certify that this patient is under my care and that I, or nurse practitioner, or a physician's home health assistant working with me, has a [id number] encounter with this patient.
--- NOTE | 2017-12-22 19:18 | Physician Discharge Referral ---
ExtendedCare Referral Info Transfer To: ECF Provider in Charge after Transfer: PCP Institutional Level of Care: Skilled - Diagnosis (1) Arthritis of left knee Priority: Primary Status: Chronic (2) Status post total left knee replacement Priority: Primary Status: Acute (3) Bipolar disease, chronic Status: Chronic (4) Hyperlipidemia Status: Chronic (5) Hypertension Status: Chronic (6) Obesity (BMI 30.0-34.9) Status: Chronic (7) CVA (cerebral vascular accident) Status: Acute (8) Seizure Status: Chronic (9) Tobacco abuse Status: Chronic - Transfer Medications Home Medications: Citalopram Hydrobromide [Celexa] 40 mg PO DAILY 12/08/16 [History] DiphenhydraMINE [Benadryl] 50 mg PO HS 12/08/16 [History] HydrOXYzine Pamoate [Vistaril] 50 mg PO TID PRN 12/08/16 [History] Tizanidine HCl 4 mg PO Q8H PRN 12/08/16 [History] Trazodone HCl 150 - 300 mg PO HS PRN 12/08/16 [History] lamoTRIgine [Lamictal Xr] 200 mg PO HS 12/08/16 [History] Metoprolol XL (24 HR) Succ [Toprol Xl] 25 mg PO DAILY #30 tab.er.24h 12/09/16 [Rx] Aspirin 81 mg PO DAILY #30 tab.chew 12/21/16 [Rx] Clopidogrel [Plavix] 75 mg PO DAILY #30 tablet 12/21/16 [Rx] Acetaminophen w/Cod 300-30 mg [Tylenol w/Codeine #3] 1 each PO Q6HR PRN 10/13/17 [History] Aspirin Enteric Coated [Aspirin EC] 325 mg PO BID #20 tablet.dr 12/21/17 [Rx] Atorvastatin [Lipitor] 40 mg PO DAILY 12/21/17 [History] Buspirone HCl [Buspar] 15 mg PO BID 12/21/17 [History] DULoxetine [Cymbalta] 30 mg PO QAM 12/21/17 [History] DULoxetine [Cymbalta] 60 mg PO QPM 12/21/17 [History] Gabapentin [Neurontin] 600 mg PO TID 12/21/17 [History] OxyCODONE Immed Rel [Roxicodone 5 MG] 5 mg PO Q6HR PRN 5 Days #20 tablet 12/21/17 [Rx] Oxybutynin Chloride [Ditropan Xl] 10 mg PO DAILY 12/21/17 [History] risperiDONE [Risperdal] 3 mg PO HS 12/21/17 [History] Allergies/Adverse Reactions: Allergy/AdvReac Type Severity Reaction Status Date / Time No Known Allergies Allergy Verified 12/21/17 12:43 - Respiratory Orders None Smoking Cessation: Smoking cessation has been advised. For more information, call the [place] Tobacco Quit Line at 8-498-TPWQ-NOW. - Lab Orders Lab Orders: CBC, U/A - Advance Directives Code Status: Full Code - Mobility Orders Ambulate - Rehabiliation Orders Rehab Potential: Good Rehab Orders: ROM Exercises, Evaluation for Physical Therapy, Evaluation for Occupational Therapy - Treatments Skin tear care topically daily PRN per policy, May check for fecal impaction rectally daily PRN List/Other: Opsite dressing, leave intact until first post-operative visit. If dressing becomes >50% saturated, contact office, remove dressing and place appropriate dressing in its place. Do not allow for dressing to get wet. Zipline in place, plan to remove at post-operative day #14-16. Total Joint Precautions x 6 weeks Apply cold therapy wrap 3-6x/day for 20 minutes at a time. Encourage ambulation throughout the day Use Incentive spirometer 10x/hour. Elevate affected extremity above heart as tolerated. Brace: Wear knee immobilizer at night until first post-operative appt. CERTIFICATION: I certify that the transfer of the above named patient to an Extended Care Facility is necessary for the continuing treatment of the diagnosis listed. The above information is true and accurate reflection of patient's current condition. Confidential - Redisclosure prohibited without a patient's written consent.
--- NOTE | 2017-12-22 19:18 | Event Note ---
Date of Encounter: 12/22/17 Time of Encounter: 13:23 PCR - POD#. 1 - Left TKR 12/21 Patient seen at bedside, without complaints. A&O x 3 Afebrile, vital signs stable. Labs reviewed. H/H - stable, asymptomatic Pain control: adequate Participating in PT. All questions and concerns addressed. Educated on use of incentive spirometer. Encouraged ambulation and proper hydration. Patient educated on post-operative restrictions and post-operative care. Assessment and plan: Continue with postoperative care Discharge plan: Home with HH or ECF if [facility] will accept, discharge today or more likely tomorrow pending auth Vital Signs Temp Pulse Resp BP Pulse Ox 12/22/17 11:00 97.5 F L 63 14 103/68 93 12/22/17 07:06 97.5 F L 57 18 112/72 94 12/22/17 03:55 97.4 F L 78 18 97/56 97 12/21/17 22:55 98.1 F 66 16 111/76 97 12/21/17 21:00 97.9 F 67 14 110/76 98 12/21/17 19:24 97.4 F L 65 12 117/81 97 12/21/17 18:36 97.6 F 71 12 105/71 96 12/21/17 18:17 97.8 F 61 12 116/80 97 12/21/17 18:07 96 12/21/17 18:00 92 12/21/17 17:18 68 16 130/78 96 12/21/17 17:08 98.1 F 73 20 119/86 95 12/21/17 16:58 73 12 126/86 96 12/21/17 16:48 73 14 119/79 94 12/21/17 16:38 98.3 F 84 24 162/85 100 12/21/17 15:19 62 16 96/67 94 12/21/17 15:10 63 18 106/65 93 12/21/17 14:55 67 18 106/72 94 12/21/17 14:49 98.8 F 83 18 109/76 96 12/21/17 14:44 69 18 108/72 94 12/21/17 14:04 18 109/76 96 Intake and Output 12/21/17 12/22/17 12/22/17 23:59 07:59 15:59 Intake Total 100 / 100 200 / 200 0 / 0 Output Total 350 / 350 400 / 400 600 / 600 Balance -250 / -250 -200 / -200 -600 / -600 Intake: IV Fluids 100 / 100 Ancef 2,000 MG In 0.9 % Sodium 100 / 100 Chloride 100 ML @ 200 mls/hr IVPB Q8H [facility] Rx#:[id number] Oral 200 / 200 0 / 0 Output: Urine 150 / 150 400 / 400 600 / 600 Estimated Blood Loss 200 / 200 Other: Meal Breakfast Percent of Meal Consumed 5% # Voids 1 # Urine Diapers 1 Short CBC 12/22/17 12/21/17 Range/Units 04:18 17:04 Hgb 11.7 D 13.9 (11.5-15.4) g/dL Hct 37.3 43.3 (35.3-44.9) % BMP 12/22/17 Range/Units 04:18 Sodium 140 (136-145) mEq/L Potassium 4.4 (3.5-5.1) mEq/L Chloride 105 (98-107) mEq/L Carbon Dioxide 26 (23-29) mEq/L BUN 9 (6-20) mg/dL Creatinine 0.67 (0.60-1.20) mg/dL Glucose 127 H (70-105) mg/dL Calcium 8.5 L (8.6-10.3) mg/dL .
[2017-12-22 19:28] VITALS: BP 94/59
[2017-12-22] MEDS: RisperiDAL 3 MG TABLET PO SCH (20:50)
== END 2017-12-22 22:40 | DRG 470 ==
LOC: SAMDAY 12:01 → 3NENU 18:55
PROVIDERS: ADMIT Orthopaedic Surgery; ATTEND Orthopaedic Surgery